=== PATIENT | female | born 1950 | race Caucasian/White ===

== ENCOUNTER 2021-12-12 18:48 | Inpatient (IN) | payer OTHER ==
--- OUTSIDE RECORDS SUMMARY | 2021-12-12 18:52 | XMS REPORT | Continuity of Care Document ---
:1950 Author Organization [facility] t Address [address] [place] [address] Support Name Relationship Address Phone Noreen Ying Spouse [address] [place] [address] MD JOSE LOREDO MD A Emergency Provider [address] [place] [address] SHEN NEIL MD Attending Provider [address] [phone] [place] [address] KARO QUINONES Primary Care Physician [address] [place] [address] NOREEN YING Next of Kin [address] [place] [address] KATHY GOMEZ MD Emergency Provider [address] [place] [address] DOMENICO KAMINSKI Child [address] [facility] [phone] [place] [address] CY LUNA MD Emergency Provider [address] [id number] ( [phone] [place] [address] MD MAGDALENA GARCIA MD Admitting Provider [address] [place] [address] PORSHA PERERA JR Attending Provider [address] [facility] [address] [place] [address] MD ANGELINE QUARLES Emergency Provider [address] [phone] [place] [address] MD PORSAH PERERA JR Admitting Provider [address] [place] [address] MD FIDENCIO GUTIERREZ Emergency Provider [address] [place] [address] MD ANA CHANDLER Emergency Provider [address] [place] [address] LILI VIDAL MD Emergency Provider [address] [phone] [place] [address] MD MARISELA RUSH Emergency Provider [address] [phone] [place] [address] MD FISH SIMMONS Emergency Provider [address] [place] [address] Care Team Providers Name Role Phone Emma Dawson Primary Care Physician ELIANA Attending Clinician Unavailable Tony Attending Clinician Unavailable ELIANA Admitting Clinician Unavailable Tony Admitting Clinician Unavailable Payers Payer Name Policy Type Policy Number Effective Date Expiration Date [facility] [id number] 2021 (MEDICARE 00:00:00 REPLACEMENT/ADVANT AGE - HMO) [place]: [id number] 2017 [employer] 00:00:00 [facility] [place]IC[facility] B[place]: [id number] 2017 [employer] 00:00:00 Problems Condition Condition Condition Status Onset Resolution Last Treating Co mments Source Name Details Category Date Date Treatment Clinician Date Tear of Tear of Problem Active [place] skin Skin 1-18 [facility] Recurrent Recurrent Problem Active [place] [place] 1-18 da [facility] Mixed Mixed Problem Active 2019-04 [place] hyperlipid Hyperlipid 1-16 da emia emia 00:00: [facility] Hyponatrem Hyponatrem Problem Active 2019-04 [facility] ia ia 1-16 da [facility] Home Home Problem Active [place] oxygen Oxygen 3-31 da therapy Therapy [facility]:00[facility] Alcohol Alcohol Problem Active [place] abuse Abuse 05-09 da 00:[facility] Fracture Fracture Problem Active [place] of left of Left 1 da rib Rib 00:00: [facility] Major Major Problem Active [place] depressive Depressive 5- da disorder Disorder 00:00: [facility] Generalize Generalize Problem Active [facility] d anxiety d Anxiety 08-15 da disorder Disorder 00:00: [facility] Nicotine Nicotine Problem Active [place] [facility] dependence Dependence 3 da 00:[facility] Anxiety Anxiety Problem Active [place] 3 da 00:[facility]: [facility] 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 227 da erosis erosis 00:00: [facility] 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-18 da thoracic Thoracic 00:00: [facility] aorta Aorta 00 al [facility] Hypertensi Hypertensi Problem Active [facility] ve ve da disorder Disorder [facility] Chronic Chronic Problem Active [place] obstructiv Obstructiv da e lung e Lung [facility] disease Disease [facility] Tobacco Tobacco Problem Active [place] dependence Dependence da syndrome Syndrome [facility] Depressive Depressive Problem Active [facility] disorder Disorder da [facility] Acute Acute Problem Active [place] exacerbati Exacerbati da on of on of [facility] chronic Chronic al obstructiv Obstructiv He alth e airways e Airways Outr eac disease Disease h Program Pulmonary Pulmonary Problem Active [facility] emphysema Emphysema da [facility] Acute Acute Problem Active [place] asthma Asthma da [facility] Chronic Chronic Problem Active [place] hypoxemic Hypoxemic da respirator Respirator [facility] failure y Failure al [facility] Diverticul Diverticul Problem Active [facility] ar disease ar Disease da [facility] Diverticul Diverticul Problem Active [facility] itis itis da [facility] Chronic Chronic Problem Active [place] ulcer of Ulcer of da skin Skin [facility] Backache Backache Problem Active [place] [facility] Fracture Fracture Problem Active [place] of rib of Rib [facility] Injury of Injury of Problem Active [facility] lower limb Lower Limb da [facility] Total knee Total Knee Problem Active [facility] replacemen Replacemen da t t [facility] Allergies, Adverse Reactions, Alerts This patient has no known allergies or adverse reactions. Social History Social Habit Start Date Stop Date Quantity Comments Source History of Smokes tobacco [facility] tobacco use daily Hospital Alcohol intake 2017-08-18 2017-08-18 Current drinker [facility] 00:00:00 00:00:00 of alcohol Hospital (finding) Tobacco use and 2017-08-18 2017-08-18 Smokeless tobacco [facility] exposure 00:00:00 00:00:00 non-user Hospital Sex Assigned At [birth year] [facility] 00:[facility]00 00:00:00 Hospital Smoking Status Start Date Stop Date Source Light Tobacco Smoker [facility] Smokes tobacco daily 2017-08-18 00:00:00 [facility] Medications Ordered Filled Start Stop Current Ordering Indication Dosage Frequency Signature Comments Components Source Medication Medication Date Date Medication? Clinician (SIG) Name Name albuterol Yes 2{puff} Q6H Inhale 2 M ethodi (PROAIR 5-[address] HFA,PROVENT 10:34: every 6 [facility] [place] 00 (six) l HFA,VENTOLI hours as N HFA) 90 needed for mcg/actuati wheezing. on inhaler amlodipine- Yes 1{capsu QD Take 1 M ethodi benazepril 5-09 le} capsule by st (LOTREL) 10:34: mouth [facility]osp[facility] 10-20 mg 00 daily. l per capsule metoprolol Yes 100mg Q.5D Take 100 Me th[facility] tartrate 5-[address] (LOPRESSOR) 10:34: mouth 2 [facility] 100 mg 00 (two) l tablet times a day. budesonide- Yes 2{puff} Q.5D Inhale 2 [facility] formoterol 5-[address] (SYMBICORT) 10:34: (two) Hospi ta 160-4.5 00 times a l mcg/actuati day. on inhaler albuterol Yes 2{puff} Q6H Inhale 2 M ethodi (PROAIR 5-[address] HFA,PROVENT 10:34: every 6 [facility] [place] (six) l HFA,VENTOLI hours as N HFA) 90 needed for mcg/actuati wheezing. on inhaler amlodipine- Yes 1{capsu QD Take 1 M ethodi benazepril 5-09 le} capsule by st (LOTREL) 10:34: mouth [facility]osp[facility] 10-20 mg 00 daily. l per capsule metoprolol 0 Yes 100mg Q.5D Take 100 Me [facility] tartrate 5-[address] (LOPRESSOR) 10:34: mouth 2 [facility] 100 mg 00 (two) l tablet times a day. budesonide- Yes 2{puff} Q.5D Inhale 2 [facility] formoterol 5-[address] (SYMBICORT) 10:34: (two) Hospi ta 160-4.5 00 times a l mcg/actuati day. on inhaler albuterol Yes 2{puff} Q6H Inhale 2 M ethodi (PROAIR 5-[address] HFA,PROVENT 10:34: every 6 [facility] [place] 00 (six) l HFA,VENTOLI hours as N HFA) 90 needed for mcg/actuati wheezing. on inhaler amlodipine- Yes 1{capsu QD Take 1 M ethodi benazepril 5-09 le} capsule by st (LOTREL) 10:34: mouth [facility]osp[facility] 10-20 mg 00 daily. l per capsule metoprolol 0 Yes 100mg Q.5D Take 100 [facility] tartrate 5-[address] (LOPRESSOR) 10:34: mouth 2 [facility] 100 mg 00 (two) l tablet times a day. amlodipine- Yes 1{capsu QD Take 1 M ethodi benazepril 5-09 le} capsule by st (LOTREL) 10:34: mouth [facility] 10-20 mg 00 daily. l per capsule metoprolol 2018-0 Yes 100mg Q.5D Take 100 Me [facility] tartrate 5-[address] (LOPRESSOR) 10:34: mouth 2 [facility] 100 mg 00 (two) l tablet times a day. budesonide- Yes 2{puff} Q.5D Inhale 2 [facility] formoterol 5-[address] (SYMBICORT) 10:34: (two) Hospi ta 160-4.5 00 times a l mcg/actuati day. on inhaler albuterol Yes 2{puff} Q6H Inhale 2 M ethodi (PROAIR 5-[address] HFA,PROVENT 10:34: every 6 [facility] [place] 00 (six) l HFA,VENTOLI hours as N HFA) 90 needed for mcg/actuati wheezing. on inhaler budesonide- Yes 2{puff} Q.5D Inhale 2 [facility] formoterol 5-[address] (SYMBICORT) 10:34: (two) Hospi ta 160-4.5 00 times a l mcg/actuati day. on inhaler albuterol Yes 2{puff} Q6H Inhale 2 M ethodi (PROAIR 5-[address] HFA,PROVENT 10:34: every 6 [facility] [place] 00 (six) l HFA,VENTOLI hours as N HFA) 90 needed for mcg/actuati wheezing. on inhaler amlodipine- Yes 1{capsu QD Take 1 M ethodi benazepril 5-09 le} capsule by st (LOTREL) 10:34: mouth [facility]osp[facility] 10-20 mg 00 daily. l per capsule metoprolol Yes 100mg Q.5D Take 100 Me thodi tartrate 5-[address] (LOPRESSOR) 10:34: mouth 2 [facility] 100 mg 00 (two) l tablet times a day. budesonide- Yes 2{puff} Q.5D Inhale 2 [facility] formoterol 5-[address] (SYMBICORT) 10:34: (two) Hospi ta 160-4.5 00 times a l mcg/actuati day. on inhaler SPIRIVA Yes 2{act} QD 2 Act Methodi RESPIMAT -[address] 2.5 00:00: Hospita mcg/actuati 00 l on mist SPIRIVA Yes 2{act} QD 2 Act [facility] RESPIMAT - daily. st 2.5 00:00: [facility]ospita mcg/actuati 00 l on mist SPIRIVA Yes 2{act} QD 2 Act [facility] RESPIMAT 08-[address] 2.5 00:00: [facility]ospita mcg/actuati 00 l on mist SPIRIVA Yes 2{act} QD 2 Act [facility] RESPIMAT 08-[address] 2.5 00:00: [facility]osp[facility] mcg/actuati 00 l on mist SPIRIVA Yes 2{act} QD 2 Act Methodi RESPIMAT 08-[address] 2.5 00:00: [facility]osp[facility] mcg/actuati 00 l on mist aspirin 81 aspirin 81 No aspirin 81 [facility] mg chewable mg chewable mg d a tablet tablet chewable [facility] tablet al [facility] benzonatate benzonatate No benzonatat [place] 100 mg 100 mg e 100 mg da capsule capsule capsule [facility] TAKE 1 TAKE 1 TAKE 1 al CAPSULE BY CAPSULE BY CAPSULE BY Health MOUTH THREE MOUTH THREE MOUTH Outreac TIMES DAILY TIMES DAILY THREE h NEEDED NEEDED TIMES Prog therese FOR COUGH FOR COUGH DAILY NEEDED FOR COUGH buspirone 5 buspirone 5 No buspirone [place] mg tablet mg tablet 5 mg da TAKE 1 TAKE 1 tablet [facility] TABLET BY TABLET BY TAKE 1 al MOUTH TWICE MOUTH TWICE TABLET BY Health DAILY DAILY MOUTH Outreac TWICE h DAILY Program duloxetine duloxetine No duloxetine [place] 30 mg 30 mg 30 mg da capsule,del capsule,del capsule,de [facility] ayed ayed layed al release release release Health TAKE 1 TAKE 1 TAKE 1 Outreac CAPSULE BY CAPSULE BY CAPSULE BY h MOUTH EVERY MOUTH EVERY MOUTH Program DAY DAY EVERY DAY escitalopra escitalopra No escitalopr [place] m 10 mg m 10 mg am 10 mg da tablet TAKE tablet TAKE tablet [facility] ONE TABLET ONE TABLET TAKE ONE al BY MOUTH BY MOUTH TABLET BY He alth EVERY DAY EVERY DAY MOUTH Outr eac FOR 30 DAYS FOR 30 DAYS EVERY DAY h FOR 30 Program DAYS folic acid folic acid No folic acid [place] 1 mg tablet 1 mg tablet 1 mg d a TAKE 1 TAKE 1 tablet [facility] TABLET BY TABLET BY TAKE 1 al MOUTH EVERY MOUTH EVERY TABLET BY Health DAY DAY MOUTH Outreac EVERY DAY h Program gabapentin gabapentin No gabapentin [place] 100 mg 100 mg 100 mg da capsule capsule capsule [facility] p TAKE 1 TAKE 1 TAKE 1 al CAPSULE BY CAPSULE BY CAPSULE BY Health MOUTH TWICE MOUTH TWICE MOUTH Outreac DAILY WITH DAILY WITH TWICE h MEALS MEALS DAILY WITH Program MEALS ipratropium ipratropium No ipratropiu [place] 0.5 0.5 m 0.5 da mg-albutero mg-albutero mg-albuter [facility] l 3 mg (2.5 l 3 mg (2.5 ol 3 mg al mg base)/3 mg base)/3 (2.5 mg Health mL mL base)/3 mL Outreac nebulizatio nebulizatio nebulizati h n soln USE n soln USE on soln Program ONE VIAL IN ONE VIAL IN USE ONE NEBULIZER NEBULIZER VIAL IN EVERY FOUR EVERY FOUR NEBULIZER HOURS HOURS EVERY FOUR NEEDED NEEDED HOURS NEEDED metoprolol metoprolol No metoprolol [place] tartrate 25 tartrate 25 tartrate da mg tablet mg tablet 25 mg [facility] copyist TAKE 1/2 TAKE 1/2 tablet al TABLET BY TABLET BY TAKE 1/2 H ealth MOUTH TWICE MOUTH TWICE TABLET BY Outreac A DAY A DAY MOUTH h TWICE A Program DAY montelukast montelukast No montelukas [place] 10 mg 10 mg t 10 mg da tablet TAKE tablet TAKE tablet [facility] 1 TABLET BY 1 TABLET BY TAKE 1 al MOUTH EVERY MOUTH EVERY TABLET BY Health DAY FOR DAY FOR MOUTH Outreac SEASONAL SEASONAL EVERY DAY h ALLERGIES ALLERGIES FOR Progr am SEASONAL ALLERGIES pantoprazol pantoprazol No pantoprazo [place] e 40 mg e 40 mg le 40 mg da tablet,kraig tablet,kraig tablet,del [facility] yed release yed release ayed a l TAKE 1 TAKE 1 release Health TABLET BY TABLET BY TAKE 1 Out reac MOUTH EVERY MOUTH EVERY TABLET BY h DAY DAY MOUTH Program EVERY DAY prednisone prednisone No prednisone [place] 10 mg 10 mg 10 mg da tablet TAKE tablet TAKE tablet [facility] 1 TABLET BY 1 TABLET BY TAKE 1 al MOUTH EVERY MOUTH EVERY TABLET BY Health DAY FOR 30 DAY FOR 30 MOUTH Ou treac DAYS DAYS EVERY DAY h FOR 30 Program DAYS ProAir HFA ProAir HFA No ProAir HFA [place] 90 90 90 da mcg/actuati mcg/actuati mcg/actuat [facility] on aerosol on aerosol ion al inhaler inhaler aerosol Health INHALE 2 INHALE 2 inhaler Outr eac PUFFS EVERY PUFFS EVERY INHALE 2 h FOUR HOURS FOUR HOURS PUFFS Pr ogram EVERY FOUR HOURS Restasis Restasis No Restasis [facility] 0.05 % eye 0.05 % eye 0.05 % eye da drops in a drops in a drops in a [facility] dropperette dropperette dropperett al INSTILL 1 INSTILL 1 e INSTILL Health DROP INTO DROP INTO 1 DROP Out reac EACH EYE EACH EYE INTO EACH h TWICE DAILY TWICE DAILY EYE TWICE Program DAILY Spiriva Spiriva No Spiriva [place] Respimat Respimat Respimat da 2.5 2.5 2.5 [facility] mcg/actuati mcg/actuati mcg/actuat al on solution on solution ion H ealth for for solution Outreac inhalation inhalation for h INHALE 2 INHALE 2 inhalation P rogram PUFFS EVERY PUFFS EVERY INHALE 2 DAY DAY PUFFS EVERY DAY Symbicort Symbicort No Symbicort [place] 160 mcg-4.5 160 mcg-4.5 160 d a mcg/actuati mcg/actuati mcg-4.5 [facility] on HFA on HFA mcg/actuat al aerosol aerosol ion HFA Health inhaler inhaler aerosol Outrea c Inhale 2 Inhale 2 inhaler h inhalations inhalations Inhale 2 Program twice a day twice a day inhalation by by s twice a inhalation inhalation day by route as route as inhalation directed. directed. route as directed. Immunizations Ordered Immunization Filled Immunization Date Status Commen Source Name Name Influenza vaccine, Influenza vaccine, 2021-01-14 Completed [place] quadrivalent, quadrivalent, 10:34:41 [facility] adjuvanted adjuvanted [facility] COVID-19, mRNA, COVID-19, mRNA, 2020-11-22 Completed [place] mylene LNP-S, PF, 100 LNP-S, PF, 100 00:00:00 [facility] pal mcg/0.5 mL dose mcg/0.5 mL dose [facility] (Moderna) (Moderna) Program COVID-19, mRNA, COVID-19, mRNA, 2020-10-25 Completed [place] mylene LNP-S, PF, 100 LNP-S, PF, 100 00:00:00 [facility] pal mcg/0.5 mL dose mcg/0.5 mL dose [facility] (Moderna) (Moderna) Program Tdap Tdap 2020-02-26 Completed [place] 17:27:50 [facility] pneumococcal pneumococcal 2020-02-08 Completed [place] polysaccharide PPV23 polysaccharide PPV23 16:15:59 [facility] influenza, trivalent, influenza, 2020-01-09 Completed [place] adjuvanted trivalent, 16:02:46 [facility] adjuvanted [facility] influenza, trivalent, influenza, 2018-01-25 Completed [place] adjuvanted trivalent, 14:38:55 [facility] adjuvanted [facility] influenza, influenza, 2017-01-11 Completed [place] injectable, injectable, 00:00:00 [facility] quadrivalent quadrivalent [facility] Out reach Program pneumococcal pneumococcal 2014-07-31 Completed [place] conjugate PCV 13 conjugate PCV 13 00:00:00 [facility] Vital Signs Vital Name Observation Time Observation Value Comments Source BP Diastolic 2021-06-11 00:00:00 76 [facility]Hg[facility] Height 2021-06-11 00:00:00 68 [in_i] [facility] BMI (Body Mass 2021-06-11 00:00:00 20.2 kg/m2 [place]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 BP Systolic 2021-06-11 00:00:00 168 mm[Hg] [facility] Body Weight 2021-06-11 00:00:00 2128 [oz_av] [facility] BP Diastolic 2021-01-23 00:00:00 76 mm[Hg] [facility] Height 2021-01-23 00:00:00 68 [in_i] [facility] BMI (Body Mass 2021-01-23 00:00:00 20.4 kg/m2 [place]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 BP Systolic 2021-01-23 00:00:00 166 mm[Hg] [place] [facility] Body Weight 2021-01-23 00:00:00 2144 [oz_av] [place] [facility] BP Diastolic 2021-01-14 00:00:00 71 mm[Hg] [place] [facility] Height 2021-01-14 00:00:00 68 [in_i] [place] [facility] BMI (Body Mass 2021-01-14 00:00:00 20.4 kg/m2 [place]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 BP Systolic 2021-01-14 00:00:00 131 mm[Hg] [place] [facility] Body Weight 2021-01-14 00:00:00 2144 [oz_av] [place] [facility] BP Diastolic 2020-08-27 00:00:00 76 mm[Hg] [place] [facility] Height 2020-08-27 00:00:00 68 [in_i] [place] [facility] BMI (Body Mass 2020-08-27 00:00:00 17.6 kg/m2 [place]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 BP Systolic 2020-08-27 00:00:00 131 mm[Hg] [place] [facility] Body Weight 2020-08-27 00:00:00 1856 [oz_av] [place] [facility] BP Diastolic 2020-07-30 00:00:00 56 mm[Hg] [place] [facility] Height 2020-07-30 00:00:00 68 [in_i] [place] [facility] BMI (Body Mass 2020-07-30 00:00:00 18.4 kg/m2 [place]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 BP Systolic 2020-07-30 00:00:00 115 mm[Hg] [place] [facility] Body Weight 2020-07-30 00:00:00 1936 [oz_av] [place] [facility] BP Diastolic 2020-07-07 00:00:00 67 mm[Hg] [place] [facility] Height 2020-07-07 00:00:00 68 [in_i] [place] [facility] BMI (Body Mass 2020-07-07 00:00:00 18.5 kg/m2 [place]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 BP Systolic 2020-07-07 00:00:00 127 mm[Hg] [place] [facility] Body Weight 2020-07-07 00:00:00 1945.6 [oz_av] [place] [employer] [facility] BP Diastolic 2020-04-29 00:00:00 70 mm[Hg] [place] [facility] Height 2020-04-29 00:00:00 68 [in_i] [place] [facility] BMI (Body Mass 2020-04-29 00:00:00 19.2 kg/m2 [place]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 BP Systolic 2020-04-29 00:00:00 124 mm[Hg] [place] [facility] Body Weight 2020-04-29 00:00:00 2016 [oz_av] [place] [facility] BP Diastolic 2020-02-26 00:00:00 78 mm[Hg] [place] [facility] Height 2020-02-26 00:00:00 68 [in_i] [place] [facility] BP Systolic 2020-02-26 00:00:00 136 mm[Hg] [place] [facility] BP Diastolic 2020-02-08 00:00:00 77 mm[Hg] [place] [facility] Height 2020-02-08 00:00:00 68 [in_i] [place] [facility] BMI (Body Mass 2020-02-08 00:00:00 20.1 kg/m2 [place]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 BP Systolic 2020-02-08 00:00:00 146 mm[Hg] [place] [facility] Body Weight 2020-02-08 00:00:00 2112 [oz_av] [place] [facility] BP Diastolic 2020-01-09 00:00:00 74 mm[Hg] [place] [facility] Height 2020-01-09 00:00:00 68 [in_i] [place] [facility] BMI (Body Mass 2020-01-09 00:00:00 19.9 kg/m2 [place]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 BP Systolic 2020-01-09 00:00:00 124 mm[Hg] [place] [facility] Body Weight 2020-01-09 00:00:00 2091.2 [oz_av] [place] [facility] [facility] BP Diastolic 2019-09-05 00:00:00 81 mm[Hg] [place] [facility] Height 2019-09-05 00:00:00 68 [in_i] [place] [facility] BMI (Body Mass 2019-09-05 00:00:00 19.4 kg/m2 [place]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 BP Systolic 2019-09-05 00:00:00 149 mm[Hg] [place] [facility] Body Weight 2019-09-05 00:00:00 2038.4 [oz_av] [place] [employer] [facility] BP Diastolic 2019-07-11 00:00:00 78 mm[Hg] [place] [facility] Height 2019-07-11 00:00:00 68 [in_i] [place] [facility] BP Systolic 2019-07-11 00:00:00 138 mm[Hg] [place] [facility] BP Diastolic 2019-06-06 00:00:00 58 mm[Hg] [place] [facility] Height 2019-06-06 00:00:00 68 [in_i] [place] [facility] BMI (Body Mass 2019-06-06 00:00:00 18.9 kg/m2 [place]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 BP Systolic 2019-06-06 00:00:00 100 mm[Hg] [place] [facility] Body Weight 2019-06-06 00:00:00 124.1 [lb_av] [place] [facility] BP Diastolic 2019-05-09 00:00:00 60 mm[Hg] [place] [facility] Height 2019-05-09 00:00:00 68 [in_i] [place] [facility] BMI (Body Mass 2019-05-09 00:00:00 19.3 kg/m2 [place]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 BP Systolic 2019-05-09 00:00:00 104 mm[Hg] [place] [facility] Body Weight 2019-05-09 00:00:00 127 [lb_av] [place] [facility] BP Diastolic 2019-03-06 00:00:00 66 mm[Hg] [place] [facility] Height 2019-03-06 00:00:00 68 [in_i] [place] [facility] BMI (Body Mass 2019-03-06 00:00:00 19.6 kg/m2 [place]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 BP Systolic 2019-03-06 00:00:00 120 mm[Hg] [place] [facility] Body Weight 2019-03-06 00:00:00 129 [lb_av] [place] [facility] BP Diastolic 2019-02-01 00:00:00 70 mm[Hg] [place] [facility] Height 2019-02-01 00:00:00 68 [in_i] [place] [facility] BMI (Body Mass 2019-02-01 00:00:00 19.5 kg/m2 [place]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 BP Systolic 2019-02-01 00:00:00 120 mm[Hg] [place] [facility] Body Weight 2019-02-01 00:00:00 128 [lb_av] [place] [facility] BP Diastolic 2019-01-08 00:00:00 78 mm[Hg] [place] [facility] Outreach Program Height 2019-01-08 00:00:00 68 [in_i] [place] [facility] BMI (Body Mass 2019-01-08 00:00:00 19.3 kg/m2 [place]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 Program BP Systolic 2019-01-08 00:00:00 144 mm[Hg] [place] [facility] Body Weight 2019-01-08 00:00:00 126.9 [lb_av] [facility] da [facility] BP Diastolic 2019-01-02 00:00:00 68 mm[Hg] [place] [facility] Height 2019-01-02 00:00:00 68 [in_i] [place] [facility] BMI (Body Mass 2019-01-02 00:00:00 19.5 kg/m2 [place]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 [facility] BP Systolic 2019-01-02 00:00:00 120 mm[Hg] [place] [facility] Body Weight 2019-01-02 00:00:00 128 [lb_av] [place] [facility] Procedures Procedure Date / Time Performing Clinician Source Performed CHEST X-RAY 2020-08-27 00:00:00 [facility] MAMMO, screening, 2020-02-08 00:00:00 Brit Confucianist digital, bilateral Health Outrea ch Program XR, knee, 3 view 2020-02-08 00:00:00 Brit [facility] ELECTROCARDIOGRAM, 2020-02-08 00:00:00 Brit Confucianist COMPLETE Health Outreach Program DXA BONE DENSITY, AXIAL 2020-02-08 00:00:00 Bartolo chakraborty [facility] Colonoscopy 2018-08-19 00:00:00 [facility] Insertion of Arterial 2018-05-12 00:00:00 Kyle armas [facility]ist Stent [facility] Knee Surgery 2011-04-12 00:00:00 [facility] Total Hysterectomy 1994-04-12 00:00:00 Brit [facility] Lumpectomy of Breast 1988-04-12 00:00:00 Alejandro rosa [facility] Plan of Care Planned Activity Planned Date Details Comments Source Future Scheduled 2021-12-09 HEPATITIS B VACCINES Met [facility] Test 21:29:44 (1 of 3 - 3-dose series) [code = HEPATITIS B VACCINES (1 of 3 - 3-dose series)] Future Scheduled 2021-12-09 COVID-19 VACCINE (#1) [facility] Test 21:29:44 [code = COVID-19 VACCINE (#1)] Future Scheduled 2021-12-09 BREAST CANCER [facility] Test 21:29:44 SCREENING [code = BREAST CANCER SCREENING] Future Scheduled 2021-12-09 COLONOSCOPY SCREENING [facility] Test 21:29:44 [code = COLONOSCOPY SCREENING] Future Scheduled 2021-12-09 SHINGLES VACCINES (1 Met [facility] Test 21:29:44 of 2) [code = SHINGLES VACCINES (1 of 2)] Future Scheduled 2021-12-09 65+ [facility] 21:29:44 VACCINE (1 - PCV) [code = 65+ PNEUMOCOCCAL VACCINE (1 - PCV)] Future Scheduled 2021-12-09 INFLUENZA VACCINE Method [facility] Test 21:29:44 [code = INFLUENZA VACCINE] Future Scheduled 2021-12-09 HEPATITIS B VACCINES Met [facility] Test 21:29:44 (1 of 3 - 3-dose series) [code = HEPATITIS B VACCINES (1 of 3 - 3-dose series)] Future Scheduled 2021-12-09 COVID-19 VACCINE (#1) [facility] Test 21:29:44 [code = COVID-19 VACCINE (#1)] Future Scheduled 2021-12-09 [facility] Test 21:29:44 SCREENING [code = BREAST CANCER SCREENING] Future Scheduled 2021-12-09 COLONOSCOPY SCREENING [facility] Test 21:29:44 [code = COLONOSCOPY SCREENING] Future Scheduled 2021-12-09 SHINGLES VACCINES (1 Met [facility] Test 21:29:44 of 2) [code = SHINGLES VACCINES (1 of 2)] Future Scheduled 2021-12-09 65+ [facility] 21:29:44 VACCINE (1 - PCV) [code = 65+ PNEUMOCOCCAL VACCINE (1 - PCV)] Future Scheduled 2021-12-09 INFLUENZA VACCINE [facility] Test 21:29:44 [code = INFLUENZA VACCINE] Future Scheduled 2021-12-09 HEPATITIS B VACCINES Met [facility] Test 21:29:44 (1 of 3 - 3-dose series) [code = HEPATITIS B VACCINES (1 of 3 - 3-dose series)] Future Scheduled 2021-12-09 COVID-19 VACCINE (#1) [facility] Test 21:29:44 [code = COVID-19 VACCINE (#1)] Future Scheduled 2021-12-09 BREAST CANCER [facility] Test 21:29:44 SCREENING [code = BREAST CANCER SCREENING] Future Scheduled 2021-12-09 COLONOSCOPY SCREENING [facility] Test 21:29:44 [code = COLONOSCOPY SCREENING] Future Scheduled 2021-12-09 SHINGLES VACCINES (1 Met [facility] Test 21:29:44 of 2) [code = SHINGLES VACCINES (1 of 2)] Future Scheduled 2021-12-09 65+ [facility] Test 21:29:44 VACCINE (1 - PCV) [code = 65+ PNEUMOCOCCAL VACCINE (1 - PCV)] Future Scheduled 2021-12-09 INFLUENZA VACCINE [facility] Test 21:29:44 [code = INFLUENZA VACCINE] Future Scheduled 2021-12-06 HEPATITIS B VACCINES Met [facility] Test 23:44:19 (1 of 3 - 3-dose series) [code = HEPATITIS B VACCINES (1 of 3 - 3-dose series)] Future Scheduled 2021-12-06 COVID-19 VACCINE (#1) [facility] Test 23:44:19 [code = COVID-19 VACCINE (#1)] Future Scheduled 2021-12-06 BREAST CANCER [facility] Test 23:44:19 SCREENING [code = BREAST CANCER SCREENING] Future Scheduled 2021-12-06 COLONOSCOPY SCREENING [facility] Test 23:44:19 [code = COLONOSCOPY SCREENING] Future Scheduled 2021-12-06 SHINGLES VACCINES (1 Met [facility] Test 23:44:19 of 2) [code = SHINGLES VACCINES (1 of 2)] Future Scheduled 2021-12-06 65+ [facility] Test 23:44:19 VACCINE (1 - PCV) [code = 65+ PNEUMOCOCCAL VACCINE (1 - PCV)] Future Scheduled 2021-12-06 INFLUENZA VACCINE Method [facility] Test 23:44:19 [code = INFLUENZA VACCINE] Future Scheduled 2021-12-06 HEPATITIS B VACCINES Met [facility] Test 23:44:19 (1 of 3 - 3-dose series) [code = HEPATITIS B VACCINES (1 of 3 - 3-dose series)] Future Scheduled 2021-12-06 COVID-19 VACCINE (#1) [facility] Test 23:44:19 [code = COVID-19 VACCINE (#1)] Future Scheduled 2021-12-06 BREAST CANCER [facility] Test 23:44:19 SCREENING [code = BREAST CANCER SCREENING] Future Scheduled 2021-12-06 COLONOSCOPY SCREENING [facility] Test 23:44:19 [code = COLONOSCOPY SCREENING] Future Scheduled 2021-12-06 SHINGLES VACCINES (1 Met [facility] Test 23:44:19 of 2) [code = SHINGLES VACCINES (1 of 2)] Future Scheduled 2021-12-06 65+ [facility]AL [facility] Test 23:44:19 VACCINE (1 - PCV) [code = 65+ PNEUMOCOCCAL VACCINE (1 - PCV)] Future Scheduled 2021-12-06 INFLUENZA VACCINE Method [facility] Test 23:44:19 [code = INFLUENZA VACCINE] Diagnostic Test 2021-06-12 CBC w/ auto diff [place] Pending 00:00:00 [code = CBC w/ auto [facility] diff] [facility]reach [facility] Diagnostic Test 2021-06-12 anemia panel [code = [place] mylene Pending 00:00:00 anemia panel] [facility] Pro[facility] m Diagnostic Test 2021-06-11 noninvasive [place] Pending 00:00:00 colorectal cancer DNA [facility] + occult blood Outreach Prog therese screening, QL, stool [code = noninvasive colorectal cancer DNA + occult blood screening, QL, stool] Encounters Start End Encounter Admission Attending Care Care Encounter Source Date/Time Date/Time Type Type Clinicians Facility Department ID 2021-12-10 2021-12-10 Outpatient [facility] [place] 00:00:00 00:00:00 _ANN 0831 [facility] 2021-09-17 2021-09-17 Outpatient [facility] 91 [place] 02:18:00 02:18:00 _ANN 0726 [facility] 2021-09-17 2021-09-17 Outpatient [facility] 911 [place] 00:00:00 00:00:00 _ANN 0608 [facility] 2021-08-10 2021-08-10 Outpatient [facility] 911 [place] 04:35:00 04:35:00 _ANN 0527 [facility] 2021-08-05 2021-08-05 Outpatient [facility] 911 [place] 01:59:00 01:59:00 _ANN 0426 [facility] 2021-08-02 2021-08-02 Outpatient [facility] 911 [place] 10:47:00 10:47:00 _ANN 0423 [facility] 2021-08-01 2021-08-01 Outpatient [facility] 911 [place] 09:45:00 09:45:00 _ANN 0422 [facility] 2021-07-02 2021-07-02 Outpatient [facility] 911 [place] 03:02:00 03:02:00 _ANN 0323 [facility] 2021-07-01 2021-07-01 Outpatient [facility] 911 [place] 12:48:00 12:48:00 _ANN 0322 [facility] 2021-06-11 2021-06-11 Outpatient [facility] 911 [place] 04:57:00 04:57:00 _ANN 0302 [facility] 2021-06-11 2021-06-11 Olga Murphy [facility] [place] - 2 [place] 00:00:00 00:00:00 Brit Quinones da TIMBER WATCHMAN: 1700 [facility] Wes Dominguez, [place], [place] 3 [place] [phone] h , Ph. Program 2021-06-09 2021-06-09 Outpatient [facility] 911 [place] 04:51:00 04:51:00 _ANN 0228 [facility] 2021-06-03 2021-06-03 Outpatient [facility] 911 [place] 10:09:00 10:09:00 _ANN 0222 [facility] 2021-06-03 2021-06-03 Outpatient [facility] 911 [place] 10:09:00 10:09:00 _ANN 0224 [facility] 2021-06-02 2021-06-02 Outpatient [facility] 911 [place] 09:29:00 09:29:00 _ANN 0221 [facility] 2021-05-30 2021-05-30 Outpatient [facility] 91 [place] 02:41:00 02:41:00 _ANN 0218 [facility] 2021-01-23 2021-01-23 Outpatient [facility] 91 [place] 04:27:00 04:27:00 _ANN 1014 [facility] 2021-01-23 2021-01-23 Rosa [facility] [place] - [id number] [place] 00:00:00 00:00:00 Brit Quinones da TIMBER WATCHMAN: 1700 [facility] Wes Dominguez, [place], [place] 3 [place] [address] h , Ph. Program 2021-01-14 2021-01-14 Outpatient [facility] 91 [place] 11:05:00 11:05:00 _ANN 1005 [facility] 2021-01-14 2021-01-14 Olga [place] - [id number] 5 [place] 00:00:00 00:00:00 Brit Quinones da TIMBER WATCHMAN: 17[address] [facility] [address], [facility] [place], [place] 3 [place] [phone] h , Ph. Program 2021-01-13 2021-01-13 Outpatient POLOEK_[facility] [place] 09:32:00 09:32:00 _ANN 1004 [facility] 2020-09-12 2020-09-12 Outpatient [facility]OEK_[facility] 91 [place] 05:29:00 05:29:00 _ANN 0603 [facility] 2020-08-27 2020-08-27 Outpatient [facility] [place] 11:32:00 11:32:00 _ANN 0518 [facility] 2020-08-27 2020-08-27 Olga Murphy [place] - [id number] [place] 00:00:00 00:00:00 Brit Quinones da TIMBER WATCHMAN: 1700 [facility] [place] [facility] [place] [place] [facility] [place] [address] h , Ph. Program 2020-07-30 2020-07-30 Outpatient [facility] [place] 03:48:00 03:48:00 _ANN 0420 [facility] 2020-07-30 2020-07-30 Rosa Katherine [place] - [id number] [place] 00:00:00 00:00:00 Brit Quinones da TIMBER WATCHMAN: 1700 [facility] [place] [facility] [place] [place] [facility] [place] [address] h , Ph. Program 2020-07-072020-062020-07-07 Outpatient SHIMEK_[facility] 911 [place] 11:27:00 11:27:00 _ANN 0328 [facility] 2020-07-07 2020-07-07 Olga BEY [place] - [id number] [place] 00:00:00 00:00:00 Brit Quinones da TIMBER WATCHMAN: [address] [facility] [place] [address], [facility] [address] h , Ph. Program 2020-05-21 2020-05-21 Outpatient [facility] 911 [place] 12:23:00 12:23:00 _ANN 0209 [facility] 2020-04-29 2020-04-29 Outpatient [facility] 911 [place] 03:47:00 03:47:00 _ANN 0118 [facility] 2020-04-29 2020-04-29 Olga BEY [place] - [id number] [place] 00:00:00 00:00:00 Brit Quinones da TIMBER WATCHMAN: 17[address] [facility] [address], [place], [place] 3 [place] [address] h , Ph. Program 2020-02-26 2020-02-26 Outpatient [facility] 91 [place] 05:04:00 05:04:00 _ANN 1116 [facility] 2020-02-26 2020-02-26 Olga BEY [place] - [id number] [place] 00:00:00 00:00:00 Brit Quinones da TIMBER WATCHMAN: 1700 [facility] [address], [place], [place] [address] h , Ph. Program 2020-02-08 2020-02-08 Outpatient [facility] 91 [place] 03:58:00 03:58:00 _ANN 1029 [facility] 2020-02-08 2020-02-08 Olga Murphy [facility] [place] - [id number] 9 [place] 00:00:00 00:00:00 Brit Quinones da TIMBER WATCHMAN: 1700 [facility] [address], [facility] [place][note 2] [phone] h , Ph. Program 2020-01-10 2020-01-10 Outpatient [facility] 91 [place] 03:26:00 03:26:00 _ANN 0930 [facility] 2020-01-09 2020-01-09 Outpatient [facility] 91 [place] 04:16:00 04:16:00 _ANN 0929 [facility] 2020-01-09 2020-01-09 Olga Murphy [place] - [id number] 9 [place] 00:00:00 00:00:00 Brit Quinones da TIMBER WATCHMAN: 1700 [facility] [address], [facility] [place][note 2] [address] h , Ph. Program 2020-01-08 2020-01-08 Outpatient [facility] 91 [place] 12:40:00 12:40:00 _ANN 0928 [facility] 2020-01-07 2020-01-07 Outpatient [facility] 91 [place] 01:13:00 01:13:00 _ANN 0927 [facility] 2019-12-19 2019-12-19 Outpatient Tony MMG MMG [id number] [place] 11:09:00 11:09:00 0908 [facility] 2019-11-17 2019-11-17 Outpatient [facility] 911 [place] 12:59:00 12:59:00 _ANN 0807 [facility] 2019-11-17 2019-11-17 Outpatient SHIMEK_[facility] 911 [place] 12:59:00 12:59:00 _ANN 0925 [facility] 2019-10-23 2019-10-23 Outpatient [facility] 911 [place] 04:35:00 04:35:00 _ANN 0713 [facility] 2019-10-13 2019-10-13 Outpatient ROSA_OLGA PERRYHOP [facility] 911 [place] 12:38:00 12:38:00 _ANN 0703 [facility] 2019-09-08 2019-09-08 Outpatient [facility] 911 [place] 12:52:00 12:52:00 _ANN 0529 [facility] 2019-09-06 2019-09-06 Outpatient [facility] 911 [place] 05:29:00 05:29:00 _ANN 0527 [facility] 2019-09-05 2019-09-05 Outpatient [facility] 911 [place] 09:45:00 09:45:00 _ANN 0526 [facility] 2019-09-05 2019-09-05 [facility] [place] [place] - [id number] [place] 00:00:00 00:00:00 Brit Luis da TIMBER WATCHMAN: 1700 [facility] [address] h , Ph. Program 2019-08-04 2019-08-04 Outpatient [facility] 911 [place] 12:48:00 12:48:00 _ANN 0424 [facility] 2019-07-17 2019-07-17 Outpatient [facility]OP [facility] 911 [place] 02:08:00 02:08:00 _ANN 0406 [facility] 2019-07-11 2019-07-11 Outpatient SHIMEK_[facility] 911 [place] 04:54:00 04:54:00 _ANN 0331 [facility] 2019-07-11 2019-07-11 Olga BEY [place] - [id number] [place] 00:00:00 00:00:00 Brit Quinones da TIMBER WATCHMAN: 1700 [facility] [address], [place], [place] [address] h , Ph. Program 2019-06-23 2019-06-23 Outpatient [facility] 911 [place] 11:30:00 11:30:00 _ANN 0320 [facility] 2019-06-23 2019-06-23 Outpatient [facility] 91 [place] 11:30:00 11:30:00 _ANN 0327 [facility] 2019-06-06 2019-06-06 Outpatient ROSA_OLGA [place] [address] [place] 01:07:00 01:07:00 _ANN 0225 [facility] 2019-06-06 2019-06-06 Olga BEY [place] - [id number] [place] 00:00:00 00:00:00 Brit Quinones da TIMBER WATCHMAN: 17[address] [facility] [address], [place], [place] [address] h , Ph. Program 2019-05-29 2019-05-29 Outpatient [facility] 911 [place] 02:29:00 02:29:00 _ANN 0217 [facility] 2019-05-09 2019-05-09 Outpatient [facility] 91 [place] 01:22:00 01:22:00 _ANN 0128 [facility] 2019-05-09 2019-05-09 Olga BEY [place] - [id number] [place] 00:00:00 00:00:00 Brit Quinones da TIMBER WATCHMAN: 1700 Confucianist [facility] op [facility], [facility] [address] h , Ph. Program 2019-04-02 2019-04-02 Outpatient ROSA_OLGA BEY 911 [place] 11:26:00 11:26:00 _ELDA Chrystal4 da [facility] Program 2019-03-06 2019-03-06 Olga [place] - [id number] [place] 00:00:00 00:00:00 Brit Quinones da TIMBER WATCHMAN: 1700 [facility]ist [facility], [address] [address] Progr am , Ph. 2019-02-01 2019-02-01 Olga [place] - [id number] [place] 00:00:00 00:00:00 Brit Quinones TIMBER WATCHMAN: 1700 Conf[facility]ist [facility], [address] [address] Progr am , Ph. 2019-01-08 2019-01-08 Areli [place] - [id number] M atagor 00:00:00 00:00:00 Shailesh Marieluis, Confucianist Episc op TIMBER WATCHMAN: [address] Program [phone] , Ph. 2019-01-02 2019-01-02 Olga [facility] [place] - [id number] [place] 00:00:00 00:00:00 Brit Quinones da TIMBER WATCHMAN: 1700 Conf[facility]ist [facility], [address] [address] Progr am , Ph. Results Test Description Test Time Test Comments Results Result Comments Source Free T4 and TSH panel - Serum or Plasma 2021-01-15 00:00:00 Test Item Value Reference Range Interpretation Comme nts Thyrotropin [Units/volume] in Serum or Plasma by 0.940 uIU/mL 0.450 -4.500 Detection limit <= 0.005 mIU/L (test code = 71205-9) Thyroxine (T4) free [Mass/volume] in Serum or Plasma 1.02 NG/dL 0 .82-1.77 (test code = 3024-7) [facility] W Auto Differential panel - Blood 2021-01-15 00:00:00 Test Item Value Reference Range Interpretation Comments Leukocytes [#/volume] in Blood 13.2 x10e3/uL 3.4-10.8 H by Automated count (test code = 6690-2) Erythrocytes [#/volume] in 3.66 x10e6/uL 3.77-5.28 L Blood by Automated count (test code = 789-8) Hemoglobin [Mass/volume] in 11.6 g/dL 11.1-15.9 Blood (test code = 718-7) Hematocrit [Volume Fraction] of 35.0 % 34.0-46.6 Blood by Automated count (test code = 4544-3) MCV [Entitic volume] by 96 fL 79-97 Automated count (test code = 787-2) MCH [Entitic mass] by Automated 31.7 pg 26.6-33.0 count (test code = 785-6) MCHC [Mass/volume] by Automated 33.1 g/dL 31.5-35.7 count (test code = 786-4) Erythrocyte distribution width 13.6 % 11.7-15.4 [Ratio] by Automated count (test code = 788-0) Platelets [#/volume] in Blood 257 x10e3/uL 150-450 by Automated count (test code = 777-3) Neutrophils/100 leukocytes in 70 % not estab. Blood by Automated count (test code = 770-8) Lymphocytes/100 leukocytes in 21 % not estab. Blood by Automated count (test code = 736-9) Monocytes/100 leukocytes in 7 % not estab. Blood by Automated count (test code = 5905-5) Eosinophils/100 leukocytes in 1 % not estab. Blood by Automated count (test code = 713-8) Basophils/100 leukocytes in 0 % not estab. Blood by Automated count (test code = 706-2) immature cells (test code = customer experience intern immature cells) Neutrophils [#/volume] in Blood 9.2 x10e3/uL 1.4-7.0 H by Automated count (test code = 751-8) Lymphocytes [#/volume] in Blood 2.8 x10e3/uL 0.7-3.1 by Automated count (test code = 731-0) Monocytes [#/volume] in Blood 0.9 x10e3/uL 0.1-0.9 by Automated count (test code = 742-7) Eosinophils [#/volume] in Blood 0.2 x10e3/uL 0.0-0.4 by Automated count (test code = 711-2) Basophils [#/volume] in Blood 0.1 x10e3/uL 0.0-0.2 by Automated count (test code = 704-7) Immature granulocytes/100 1 % not estab. leukocytes in Blood by Automated count (test code = 02726-7) Immature granulocytes 0.1 x10e3/uL 0.0-0.1 [#/volume] in Blood by Automated count (test code = 98238-8) Nucleated erythrocytes/100 customer experience intern leukocytes [Ratio] in Blood by Automated count (test code = 66780-2) Morphology [Interpretation] in customer experience intern Blood Narrative (test code = 95714-7) [facility] Outreach ProgramComprehensive metabolic 2000 panel - Serum or Zditoh8114-98-17 00:00:00 Test Item Value Reference Range Interpretation Comments Glucose [Mass/volume] in 97 mg/dL 65-99 Serum or Plasma (test code = 2345-7) Urea nitrogen [Mass/volume] 11 mg/dL 8-27 in Serum or Plasma (test code = 3094-0) Creatinine [Mass/volume] in 0.63 mg/dL 0.57-1.00 Serum or Plasma (test code = 2160-0) Glomerular filtration 92 mL/min/1.73 >59 rate/1.73 sq M.predicted among non-blacks [Volume Rate/Area] in Serum, Plasma or Blood by Creatinine-based formula (CKD-EPI) (test code = 94172-1) Glomerular filtration 107 mL/min/1.73 >59 rate/1.73 sq M.predicted among blacks [Volume Rate/Area] in Serum, Plasma or Blood by Creatinine-based formula (CKD-EPI) (test code = 81930-3) Urea nitrogen/Creatinine 17 12-28 [Mass Ratio] in Serum or Plasma (test code = 3097-3) Sodium [Moles/volume] in 137 mmol/L 134-144 Serum or Plasma (test code = 2951-2) Potassium [Moles/volume] in 3.9 mmol/L 3.5-5.2 Serum or Plasma (test code = 2823-3) Chloride [Moles/volume] in 94 mmol/L 96-106 L Serum or Plasma (test code = 2075-0) Carbon dioxide, total 25 mmol/L 20-29 [Moles/volume] in Serum or Plasma (test code = 2027-9) Calcium [Mass/volume] in 9.1 mg/dL 8.7-10.3 Serum or Plasma (test code = 86378-1) Protein [Mass/volume] in 6.5 g/dL 6.0-8.5 Serum or Plasma (test code = 2885-2) Albumin [Mass/volume] in 4.5 g/dL 3.8-4.8 Serum or Plasma (test code = 1751-7) Globulin [Mass/volume] in 2.0 g/dL 1.5-4.5 Serum by calculation (test code = 49830-4) Albumin/Globulin [Mass Ratio] 2.3 1.2-2.2 H in Serum or Plasma (test code = 1759-0) Bilirubin.total [Mass/volume] 0.6 mg/dL 0.0-1.2 in Serum or Plasma (test code = 1974-2) Alkaline phosphatase 84 IU/L 44-121 [Enzymatic activity/volume] in Serum or Plasma (test code = 6768-6) Aspartate aminotransferase 19 IU/L 0-40 [Enzymatic activity/volume] in Serum or Plasma (test code = 1920-8) Alanine aminotransferase 18 IU/L 0-32 [Enzymatic activity/volume] in Serum or Plasma (test code = 1742-6) [facility] or Plasma 2021-01-15 00:00:00 Test Item Value Reference Range Interpretation Comments Cholesterol [Mass/volume] in Serum 214 mg/dL 100-199 H or Plasma (test code = 2093-3) Triglyceride [Mass/volume] in Serum 160 mg/dL 0-149 H or Plasma (test code = 2571-8) Cholesterol in HDL [Mass/volume] in 105 mg/dL >39 Serum or Plasma (test code = 2085-9) Cholesterol in VLDL [Mass/volume] 26 mg/dL 5-40 in Serum or Plasma by calculation (test code = 03377-1) Cholesterol in LDL [Mass/volume] in 83 mg/dL 0-99 Serum or Plasma by calculation (test code = 76474-4) Laboratory comment [Text] in Report customer experience intern Narrative (test code = 77334-9) [facility]Hemoglobin.total in [id number] 00:00:00 Test Item Value Reference Range Interpretation Comments Hemoglobin A1c/Hemoglobin.total in 6.1 % 4.8-5.6 H Blood (test code = 4548-4) Glucose mean value [Mass/volume] in 128 mg/dL Blood Estimated from glycated hemoglobin (test code = 98397-9) [facility], [id number] 00:00:00 Test Item Value Reference Range Interpretation Comments Interpretation and review of laboratory note results (test code = 03374-8) Report (test code = 62949-0) . [facility] TSH panel - Serum or [id number] 00:00:00 Test Item Value Reference Range Interpretation Comments Thyrotropin [Units/volume] in 1.050 uIU/mL 0.450-4.500 Serum or Plasma by Detection limit <= 0.005 mIU/L (test code = 56277-3) Thyroxine (T4) free 1.08 NG/dL 0.82-1.77 [Mass/volume] in Serum or Plasma (test code = 3024-7) [facility]CBC [facility] Auto Differential panel - Blood 2020-02-09 00:00:00 Test Item Value Reference Range Interpretation Comments Leukocytes [#/volume] in Blood 10.1 x10e3/uL 3.4-10.8 by Automated count (test code = 6690-2) Erythrocytes [#/volume] in 4.13 x10e6/uL 3.77-5.28 Blood by Automated count (test code = 789-8) Hemoglobin [Mass/volume] in 13.0 g/dL 11.1-15.9 Blood (test code = 718-7) Hematocrit [Volume Fraction] of 38.0 % 34.0-46.6 Blood by Automated count (test code = 4544-3) MCV [Entitic volume] by 92 fL 79-97 Automated count (test code = 787-2) MCH [Entitic mass] by Automated 31.5 pg 26.6-33.0 count (test code = 785-6) MCHC [Mass/volume] by Automated 34.2 g/dL 31.5-35.7 count (test code = 786-4) Erythrocyte distribution width 14.2 % 11.7-15.4 [Ratio] by Automated count (test code = 788-0) Platelets [#/volume] in Blood 284 x10e3/uL 150-450 by Automated count (test code = 777-3) Neutrophils/100 leukocytes in 67 % not estab. Blood by Automated count (test code = 770-8) Lymphocytes/100 leukocytes in 23 % not estab. Blood by Automated count (test code = 736-9) Monocytes/100 leukocytes in 8 % not estab. Blood by Automated count (test code = 5905-5) Eosinophils/100 leukocytes in 1 % not estab. Blood by Automated count (test code = 713-8) Basophils/100 leukocytes in 1 % not estab. Blood by Automated count (test code = 706-2) immature cells (test code = customer experience intern immature cells) Neutrophils [#/volume] in Blood 6.8 x10e3/uL 1.4-7.0 by Automated count (test code = 751-8) Lymphocytes [#/volume] in Blood 2.3 x10e3/uL 0.7-3.1 by Automated count (test code = 731-0) Monocytes [#/volume] in Blood 0.8 x10e3/uL 0.1-0.9 by Automated count (test code = 742-7) Eosinophils [#/volume] in Blood 0.1 x10e3/uL 0.0-0.4 by Automated count (test code = 711-2) Basophils [#/volume] in Blood 0.1 x10e3/uL 0.0-0.2 by Automated count (test code = 704-7) Immature granulocytes/100 0 % not estab. leukocytes in Blood by Automated count (test code = 59110-1) Immature granulocytes 0.0 x10e3/uL 0.0-0.1 [#/volume] in Blood by Automated count (test code = 41841-8) Nucleated erythrocytes/100 customer experience intern leukocytes [Ratio] in Blood by Automated count (test code = 38190-1) Morphology [Interpretation] in customer experience intern Blood Narrative (test code = 30317-3) [facility] ProgramCom[facility] 2000 panel - Serum or [id number] 00:00:00 Test Item Value Reference Range Interpretation Comments Glucose [Mass/volume] in Serum 106 mg/dL 65-99 H or Plasma (test code = 2345-7) Urea nitrogen [Mass/volume] in 5 mg/dL 8-27 L Serum or Plasma (test code = 3094-0) Creatinine [Mass/volume] in 0.77 mg/dL 0.57-1.00 Serum or Plasma (test code = 2160-0) Glomerular filtration 80 mL/min/1.73 >59 rate/1.73 sq M.predicted among non-blacks [Volume Rate/Area] in Serum, Plasma or Blood by Creatinine-based formula (CKD-EPI) (test code = 05918-5) Glomerular filtration 92 mL/min/1.73 >59 rate/1.73 sq M.predicted among blacks [Volume Rate/Area] in Serum, Plasma or Blood by Creatinine-based formula (CKD-EPI) (test code = 71731-2) Urea nitrogen/Creatinine [Mass 6 12-28 L Ratio] in Serum or Plasma (test code = 3097-3) Sodium [Moles/volume] in Serum 129 mmol/L 134-144 L or Plasma (test code = 2951-2) Potassium [Moles/volume] in 4.3 mmol/L 3.5-5.2 Serum or Plasma (test code = 2823-3) Chloride [Moles/volume] in 90 mmol/L 96-106 L Serum or Plasma (test code = 2075-0) Carbon dioxide, total 20 mmol/L 20-29 [Moles/volume] in Serum or Plasma (test code = 2027-) Calcium [Mass/volume] in Serum 9.2 mg/dL 8.7-10.3 or Plasma (test code = 80870-1) Protein [Mass/volume] in Serum 7.2 g/dL 6.0-8.5 or Plasma (test code = 2885-2) Albumin [Mass/volume] in Serum 4.7 g/dL 3.8-4.8 or Plasma (test code = 1751-7) Globulin [Mass/volume] in 2.5 g/dL 1.5-4.5 Serum by calculation (test code = 57426-3) Albumin/Globulin [Mass Ratio] 1.9 1.2-2.2 in Serum or Plasma (test code = 1759-0) Bilirubin.total [Mass/volume] 1.2 mg/dL 0.0-1.2 in Serum or Plasma (test code = 1975-2) Alkaline phosphatase 239 IU/L 39-117 H [Enzymatic activity/volume] in Serum or Plasma (test code = 6768-6) Aspartate aminotransferase 18 IU/L 0-40 [Enzymatic activity/volume] in Serum or Plasma (test code = 1920-8) Alanine aminotransferase 10 IU/L 0-32 [Enzymatic activity/volume] in Serum or Plasma (test code = 1742-6) [facility] Hospital[facility] 1996 panel - Serum or Plasma 2020-02-09 00:00:00 Test Item Value Reference Range Interpretation Comments Cholesterol [Mass/volume] in Serum 235 mg/dL 100-199 H or Plasma (test code = 2093-3) Triglyceride [Mass/volume] in Serum 73 mg/dL 0-149 or Plasma (test code = 2571-8) Cholesterol in HDL [Mass/volume] in 111 mg/dL >39 Serum or Plasma (test code = 2085-9) Cholesterol in VLDL [Mass/volume] 12 mg/dL 5-40 in Serum or Plasma by calculation (test code = 44917-9) Cholesterol in LDL [Mass/volume] in 112 mg/dL 0-99 H Serum or Plasma by calculation (test code = 66833-8) Laboratory comment [Text] in Report customer experience intern Narrative (test code = 45639-2) [facility] HospitalPT and aPTT panel - Platelet poor plasma by Coagulation [id number] 00:00:00 Test Item Value Reference Range Interpretation Comments INR in Platelet poor plasma by 1.0 0.9-1.2 Coagulation assay (test code = 6301-6) Prothrombin time (PT) (test code = 10.6 sec 9.1-12.0 5902-2) aPTT in Platelet poor plasma by 32 sec 24-33 Coagulation assay (test code = 83054-8) [facility] ProgramMicroalbumin/Creatinine [Mass Ratio] in [id number] 00:00:00 Test Item Value Reference Range Interpretation Comments Creatinine [Mass/volume] in 154.3 mg/dL not estab. Urine (test code = 2161-8) Microalbumin [Mass/volume] in 48.2 ug/mL not estab. Urine (test code = 07452-6) Albumin/Creatinine [Mass ratio] 31 mg/g creat 0-29 H in Urine (test code = 9318-7) [facility] HospitalHemoglobin A1c/Hemoglobin.total in [id number] 00:00:00 Test Item Value Reference Range Interpretation Comments Hemoglobin A1c/Hemoglobin.total in 6.0 % 4.8-5.6 H Blood (test code = 4548-4) Glucose mean value [Mass/volume] in 126 mg/dL Blood Estimated from glycated hemoglobin (test code = 57994-4) [facility]cardi[facility] assessment panel, [id number] 00:00:00 Test Item Value Reference Range Interpretation Comments interpretation (test code = note interpretation) pdf (test code = pdf) . [facility] HospitalBacteria identified in Urine by [id number] 00:00:00 Test Item Value Reference Range Interpretation Comments Bacteria identified in Urine by no growth Culture (test code = 630-4) [facility] HospitalBacteria identified in Urine by [id number] 00:00:00 Test Item Value Reference Range Interpretation Comments Bacteria identified in Urine by no growth Culture (test code = 630-4) [facility] HospitalUrinalysis macro (dipstick) panel - [id number] 15:50:30 Test Item Value Reference Range Interpretation Comments Leukocytes (test code = Trace Leukocytes) Nitrite (test code = Nitrite) Neg Urobilinogen (test code = Neg Urobilinogen) Protein (test code = Protein) Trace pH (test code = pH) 6.5 Blood (test code = Blood) Neg Specific [place] (test code = 1.015 Specific [place]) Ketone (test code = Ketone) Neg Bilirubin (test code = Neg Bilirubin) Glucose (test code = Glucose) Neg Appearance (test code = slightly cloudy Appearance) Color (test code = Color) dark yellow [facility] HospitalUrinalysis macro (dipstick) panel - [id number] 15:50:30 Test Item Value Reference Range Interpretation Comments Leukocytes (test code = Trace Leukocytes) Nitrite (test code = Nitrite) Neg Urobilinogen (test code = Neg Urobilinogen) Protein (test code = Protein) Trace pH (test code = pH) 6.5 Blood (test code = Blood) Neg Specific [place] (test code = 1.015 Specific [place]) Ketone (test code = Ketone) Neg Bilirubin (test code = Neg Bilirubin) Glucose (test code = Glucose) Neg Appearance (test code = slightly cloudy Appearance) Color (test code = Color) dark yellow [facility] HospitalFree T4 and TSH panel - Serum or [id number] 00:00:00 Test Item Value Reference Range Interpretation Comments Thyrotropin [Units/volume] in 1.030 uIU/mL 0.450-4.500 Serum or Plasma by Detection limit <= 0.005 mIU/L (test code = 71952-9) Thyroxine (T4) free 1.07 NG/dL 0.82-1.77 [Mass/volume] in Serum or Plasma (test code = 3024-7) [facility] HospitalCB W Auto Differential panel - Blood 2019-02-02 00:00:00 Test Item Value Reference Range Interpretation Comments Leukocytes [#/volume] in Blood 14.0 x10e3/uL 3.4-10.8 H by Automated count (test code = 6690-2) Erythrocytes [#/volume] in 3.85 x10e6/uL 3.77-5.28 Blood by Automated count (test code = 789-8) Hemoglobin [Mass/volume] in 12.3 g/dL 11.1-15.9 Blood (test code = 718-7) Hematocrit [Volume Fraction] of 37.0 % 34.0-46.6 Blood by Automated count (test code = 4544-3) Erythrocyte mean corpuscular 96 fL 79-97 volume [Entitic volume] by Automated count (test code = 787-2) Erythrocyte mean corpuscular 31.9 pg 26.6-33.0 hemoglobin [Entitic mass] by Automated count (test code = 785-6) Erythrocyte mean corpuscular 33.2 g/dL 31.5-35.7 hemoglobin concentration [Mass/volume] by Automated count (test code = 786-4) Erythrocyte distribution width 16.3 % 12.3-15.4 H [Ratio] by Automated count (test code = 788-0) Platelets [#/volume] in Blood 223 x10e3/uL 150-450 by Automated count (test code = 777-3) Neutrophils/100 leukocytes in 79 % not estab. Blood by Automated count (test code = 770-8) Lymphocytes/100 leukocytes in 14 % not estab. Blood by Automated count (test code = 736-9) Monocytes/100 leukocytes in 5 % not estab. Blood by Automated count (test code = 5905-5) Eosinophils/100 leukocytes in 2 % not estab. Blood by Automated count (test code = 713-8) Basophils/100 leukocytes in 0 % not estab. Blood by Automated count (test code = 706-2) immature cells (test code = customer experience intern immature cells) Neutrophils [#/volume] in Blood 11.0 x10e3/uL 1.4-7.0 H by Automated count (test code = 751-8) Lymphocytes [#/volume] in Blood 2.0 x10e3/uL 0.7-3.1 by Automated count (test code = 731-0) Monocytes [#/volume] in Blood 0.6 x10e3/uL 0.1-0.9 by Automated count (test code = 742-7) Eosinophils [#/volume] in Blood 0.2 x10e3/uL 0.0-0.4 by Automated count (test code = 711-2) Basophils [#/volume] in Blood 0.0 x10e3/uL 0.0-0.2 by Automated count (test code = 704-7) immature granulocytes (test 0 % not estab. code = immature granulocytes) Granulocytes Immature 0.0 x10e3/uL 0.0-0.1 [#/volume] in Blood by Automated count (test code = 64858-1) Nucleated erythrocytes/100 customer experience intern leukocytes [Ratio] in Blood by Automated count (test code = 46119-1) Morphology [interpretation] in customer experience intern Blood Narrative (test code = 21806-2) [facility] HospitalComprehensive metabolic 2000 panel - Serum or [id number] 00:00:00 Test Item Value Reference Range Interpretation Comments Glucose [Mass/volume] in Serum 84 mg/dL 65-99 or Plasma (test code = 2345-7) Urea nitrogen [Mass/volume] in 12 mg/dL 8-27 Serum or Plasma (test code = 3094-0) Creatinine [Mass/volume] in 0.77 mg/dL 0.57-1.00 Serum or Plasma (test code = 2160-0) eGFR if nonafricn AM (test 81 mL/min/1.73 >59 code = eGFR if nonafricn AM) eGFR if africn AM (test code = 93 mL/min/1.73 >59 eGFR if africn AM) Urea nitrogen/Creatinine [Mass 16 12-28 Ratio] in Serum or Plasma (test code = 3097-3) Sodium [Moles/volume] in Serum 138 mmol/L 134-144 or Plasma (test code = 2951-2) Potassium [Moles/volume] in 4.3 mmol/L 3.5-5.2 Serum or Plasma (test code = 2823-3) Chloride [Moles/volume] in 96 mmol/L 96-106 Serum or Plasma (test code = 2075-0) Carbon dioxide, total 23 mmol/L 20-29 [Moles/volume] in Serum or Plasma (test code = 2027-9) Calcium [Mass/volume] in Serum 9.1 mg/dL 8.7-10.3 or Plasma (test code = 51172-2) Protein [Mass/volume] in Serum 7.2 g/dL 6.0-8.5 or Plasma (test code = 2885-2) Albumin [Mass/volume] in Serum 4.6 g/dL 3.6-4.8 or Plasma (test code = 1751-7) Globulin [Mass/volume] in 2.6 g/dL 1.5-4.5 Serum by calculation (test code = 82797-3) Albumin/Globulin [Mass Ratio] 1.8 1.2-2.2 in Serum or Plasma (test code = 1759-0) Bilirubin.total [Mass/volume] 0.9 mg/dL 0.0-1.2 in Serum or Plasma (test code = 1975-2) Alkaline phosphatase 171 IU/L 39-117 H [Enzymatic activity/volume] in Serum or Plasma (test code = 6768-6) Aspartate aminotransferase 30 IU/L 0-40 [Enzymatic activity/volume] in Serum or Plasma (test code = 1920-8) Alanine aminotransferase 12 IU/L 0-32 [Enzymatic activity/volume] in Serum or Plasma (test code = 1742-6) [facility] HospitalLipid 1996 panel - Serum or Plasma 2019-02-02 00:00:00 Test Item Value Reference Range Interpretation Comments Cholesterol [Mass/volume] in Serum 239 mg/dL 100-199 H or Plasma (test code = 2093-3) Triglyceride [Mass/volume] in Serum 64 mg/dL 0-149 or Plasma (test code = 2571-8) Cholesterol in HDL [Mass/volume] in 143 mg/dL >39 Serum or Plasma (test code = 2085-9) Cholesterol in VLDL [Mass/volume] 13 mg/dL 5-40 in Serum or Plasma by calculation (test code = 65169-0) Cholesterol in LDL [Mass/volume] in 83 mg/dL 0-99 Serum or Plasma by calculation (test code = 35459-4) comment: (test code = comment:) customer experience intern [facility] HospitalHemoglobin A1c/Hemoglobin.total in [id number] 00:00:00 Test Item Value Reference Range Interpretation Comments Hemoglobin A1c/Hemoglobin.total in 5.6 % 4.8-5.6 Blood (test code = 4548-4) [facility]cardi[facility] assessment panel, [id number] 00:00:00 Test Item Value Reference Range Interpretation Comments interpretation (test code = note interpretation) pdf image (test code = pdf image) . [facility]
[2021-12-12] MEDS ORDERED: THIAMINE 200 MG/2 ML INJ ONE (21:00)
[2021-12-12] MEDS ORDERED: PANTOPRAZOLE 40 MG INJ ONE (21:00)
[2021-12-12] MEDS ORDERED: NA CHLORIDE 0.9% 500 ML ONE (21:00)
[2021-12-12] MEDS ORDERED: NA CHLORIDE 0.9% 1,000 ML ONE (21:00)
[2021-12-12] MEDS ORDERED: SILVER SULFADIAZINE 1% 25 GM TOP ONE (21:00)
[2021-12-12] MEDS ORDERED: FENTANYL CITR 100 MCG/2 ML ONE (21:19)
[2021-12-12] MEDS ORDERED: ONDANSETRON 4 MG/2 ML VIAL ONE (21:23)
[2021-12-12] MEDS ORDERED: LEVALBUTEROL 1.25 MG/3 ML NEB ONE (21:23)
[2021-12-12] MEDS ORDERED: CEFAZOLIN SODIUM 1 GM/VIAL ONE (21:23)
[2021-12-12] MEDS ORDERED: IPRATROPIUM BROM 0.5MG/2.5ML ONE (21:24)
[2021-12-12] MEDS ORDERED: NA CHLORIDE 0.9% 100 ML ONE (21:24)
[2021-12-12 21:29] LABS: Protime INR 1.11
[2021-12-12 21:45] LABS: Albumin 2.1 g/dL (3.4-5.0); Bilirubin Direct 0.1 mg/dL (0-0.2); Bilirubin Total 0.3 mg/dL (0.2-1.0); Magnesium 1.7 mg/dL (1.8-2.4); Protein, Total 5.5 g/dL (6.4-8.2); Troponin High Sensitivity 5.6 pg/mL (<58.9)
--- NOTE | 2021-12-12 22:01 | RAD REPORT ---
EXAM DESCRIPTION: RAD - Chest Single View - 12/12/2021 9:26 pm CLINICAL HISTORY: COUGH Chest pain. COMPARISON: CHEST PA AND LAT 2 VIEW dated 06/24/2010; CHEST SINGLE VIEW dated 10/10/2009 FINDINGS: Portable technique limits examination quality. The lungs are emphysematous but grossly clear. The heart is normal in size. No displaced fractures.St ent is present in the aorta. IMPRESSION: No acute intrathoracic process suspected.
--- NOTE | 2021-12-12 22:08 | RAD REPORT ---
EXAM DESCRIPTION: RAD - Foot Right 3 View - 12/12/2021 9:26 pm CLINICAL HISTORY: Pain Soft tissue wound COMPARISON: No comparisons FINDINGS: No fracture, foreign body or radiographic evidence of osteomyelitis. Small posterior calca patrice spur.
--- NOTE | 2021-12-12 22:36 | RAD REPORT ---
EXAM DESCRIPTION: CT - Head C Spine Cap Brittnee Villegas - 12/12/2021 10:21 pm CLINICAL HISTORY: Trauma, head and neck injury. Chest, abdomen and pelvis pain. FALL COMPARISON: No comparisons TECHNIQUE: CT head without contrast. CT cervical spine without contrast with coronal and sagittal reformatted images. CT chest, abdomen and pelvis with IV contrast (approximately 100 mL nonionic IV contrast) with brennan l and sagittal reformatted images of the spine. All CT scans are performed using dose optimization technique as appropriate and may include automated exposure control or mA/KV adjustment according to patient size. FINDINGS: CT HEAD WITHOUT CONTRAST: No intracranial hemorrhage, hydrocephalus or extra-axial fluid collection. Moderate brain atrophy. No areas of brain edema or midline shift. The paranasal sinuses and mastoids are clear. The calvarium is intact. CT CERVICAL SPINE WITHOUT CONTRAST: No fracture or subluxation. Moderate lower cervical degenerative changes. The prevertebral soft tissu es are normal in thickness.Atherosclerosis involves both carotid arteries. CT CHEST, ABDOMEN, PELVIS WITH CONTRAST: Emphysematous changes are present throughout the lungs. Linear atelectasis is present in both lung ba ses. Calcified granuloma seen in the left apex. 10 mm spiculated area of nodularity seen right upper lobe posteriorly.No pneumothorax or pericardial/pleural fluid. No evidence of intra-abdominal visceral injury, free fluid or free air. Sigmoid diverticulosis coli w ithout diverticulitis. No concerning pelvic findings. Heavy aortoiliac atherosclerosis. No fractures. IMPRESSION: Negative for acute traumatic findings. COPD with 10 mm spiculated area of nodularity right upper lobe posteriorly. Follow-up CT chest is rec ommended 6 months to monitor this finding.
[2021-12-12 23:20] LABS: Absolute Lymphocytes (CBC) 1.4 K/uL (0.7-4.9); Lymphocytes % 15.5 % (15.3-44.8); MCV 105.1 fL (80-100); MPV 7.5 fL (7.6-11.3); RBC Red Blood Cell Count 2.38 M/uL (3.86-4.86)
--- NOTE | 2021-12-12 23:28 | EDPHYS ---
Physician Documentation [facility] Name: Kristin Lester Age: 71 yrs Sex: Female : 1950 Arrival Date: 12/12/2021 Time: 18:50 Bed 9 Private MD: BAUTISTA Physician Julian Kohli HPI: 12/12 20:42 This 71 yrs old Female presents to ER via Wheelchair with complaints of Fall camila Injury, Breathing Difficulty. Historical: - Allergies: 19:23 No Known Allergies; as6 - Home Meds: 19:23 citalopram 20 mg tab 1 tab once daily [Active]; gabapentin 100 mg oral cap 1 cap 3 as6 times per day [Active]; duloxetine 30 mg oral CDRS 1 cap once daily [Active]; pantoprazole 40 mg oral grps 1 packet once daily [Active]; montelukast 10 mg oral tab 1 tab once daily [Active]; folic acid 1 mg Oral tab 1 tab once daily [Active]; atorvastatin 10 mg oral tab 1 tab once daily [Active]; amlodipine 5 mg tab 1 tab once daily [Active]; buspirone 5 mg Oral tab 1 tab 2 times per day [Active]; aspirin 81 mg Oral cap 1 cap once daily [Active]; metoprolol tartrate 25 mg Oral tab 1 tab 2 times per day [Active]; - PMHx: 19:23 Hypertensive disorder; History of urinary tract infection; Depressive disorder; Chronic as6 obstructive lung disease; - PSHx: 19:23 knee; Total abdominal hysterectomy; as6 - Immunization history:: Client reports receiving the 2nd dose of the Covid vaccine, moderna. - Social history:: Smoking status: Patient reports the use of cigarette tobacco products, smokes one-half pack cigarettes per day. ROS: 20:44 Constitutional: Negative for fever, chills, and weight loss, Eyes: Negative for injury, camila pain, redness, and discharge, ENT: Negative for injury, pain, and discharge, Neck: Negative for injury, pain, and swelling, Cardiovascular: Negative for chest pain, palpitations, and edema, Abdomen/GI: Negative for abdominal pain, nausea, vomiting, diarrhea, and constipation, Back: Negative for injury and pain, : Negative for injury, bleeding, discharge, and swelling, Neuro: Negative for headache, weakness, numbness, tingling, and seizure, Psych: Negative for depression, anxiety, suicide ideation, homicidal ideation, and hallucinations, Allergy/Immunology: Negative for hives, rash, and allergies, Endocrine: Negative for neck swelling, polydipsia, polyuria, polyphagia, and marked weight changes, Hematologic/Lymphatic: Negative for swollen nodes, abnormal bleeding, and unusual bruising. 20:44 Respiratory: Positive for cough, shortness of breath, on exertion. 20:44 MS/extremity: Positive for decreased range of motion, laceration, pain, swelling, tenderness, of the right foot and left leg. Exam: 20:44 Constitutional: This is a well developed, well nourished patient who is awake, alert, camila and in no acute distress. Head/Face: Normocephalic, atraumatic. Eyes: Pupils equal round and reactive to light, extra-ocular motions intact. Lids and lashes normal. Conjunctiva and sclera are non-icteric and not injected. Cornea within normal limits. Periorbital areas with no swelling, redness, or edema. ENT: Nares patent. No nasal discharge, no septal abnormalities noted. Tympanic membranes are normal and external auditory canals are clear. Oropharynx with no redness, swelling, or masses, exudates, or evidence of obstruction, uvula midline. Mucous membranes moist. Neck: Trachea midline, no thyromegaly or masses palpated, and no cervical lymphadenopathy. Supple, full range of motion without nuchal rigidity, or vertebral point tenderness. No Meningismus. Chest/axilla: Normal chest wall appearance and motion. Nontender with no deformity. No lesions are appreciated. Cardiovascular: Regular rate and rhythm with a normal S1 and S2. No gallops, murmurs, or rubs. Normal PMI, no JVD. No pulse deficits. Abdomen/GI: Soft, non-tender, with normal bowel sounds. No distension or tympany. No guarding or rebound. No evidence of tenderness throughout. Back: No spinal tenderness. No costovertebral tenderness. Full range of motion. Neuro: Awake and alert, GCS 15, oriented to person, place, time, and situation. Cranial nerves II-XII grossly intact. Motor strength 5/5 in all extremities. Sensory grossly intact. Cerebellar exam normal. Normal gait. Psych: Awake, alert, with orientation to person, place and time. Behavior, mood, and affect are within normal limits. 20:44 Respiratory: the patient does not display signs of respiratory distress, Respirations: no acute changes, labored breathing, is not present, Breath sounds: bronchial sounds, that are mild, decreased breath sounds, that are moderate, rhonchi, that are mild, stridor, is not appreciated, + upper airway congestion. wheezing: expiratory Respiratory rate: 20 21:08 Skin: cellulitis, that is mild, that is moderate, induration, that is mild is noted, camila injury, avulsion(s), laceration(s), the wound is approximately 3.5 cm(s), with a depth of .25 cm(s), of the dorsum of right foot. 21:33 Musculoskeletal/extremity: ROM: full active range of motion, full passive range of camila motion, limited active range of motion due to pain, limited passive range of motion due to pain, Circulation is intact in all extremities. Sensation intact. Compartment Syndrome exam of affected extremity: is normal. DVT Exam: no swelling, negative Homans' sign noted on exam, no appreciated bluish discoloration, no erythema, no increased warmth, pain, tenderness. 21:40 ECG was reviewed by the Attending Physician. camila 22:59 Abdomen/GI: Inspection: abdomen appears normal, Bowel sounds: normal, Palpation: soft, camila nontender, Rectal exam: rectal tone normal, Stool: guaiac negative, hemorrhoid(s), are not appreciated, mass, is not appreciated, swelling, is not appreciated, tenderness, is not appreciated, Liver: no appreciated palpable abnormalities, Hernia: not appreciated. Vital Signs: 19:20 BP 116 / 65; Pulse 88; Resp 17 S; Temp 97.7(O); Pulse Ox 94% on R/A; Weight 58.97 kg as6 (R); Height 5 ft. 8 in. (172.72 cm) (R); Pain 9/10; 19:20 Body Mass Index 19.77 (58.97 kg, 172.72 cm) as6 MDM: 19:59 Patient medically screened. camila 20:46 Differential diagnosis: abrasion, closed head injury, contusion, fracture, sprain, camila strain. Data reviewed: vital signs, nurses notes, lab test result(s), EKG, radiologic studies, CT scan, plain films. 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 Test interpretation: by ED physician or midlevel provider: ECG, plain radiologic studies. Counseling: I had a detailed discussion with the patient and/or guardian regarding: the historical points, exam findings, and any diagnostic results supporting the discharge/admit diagnosis, lab results, radiology results, the need for further work-up and treatment in the hospital. 12/12 20:41 Order name: Basic Metabolic Panel; Complete Time: 22:00 [facility] 12/12 20:41 Order name: CBC with Diff; Complete Time: 23:42 [facility] 12/12 20:41 Order name: LFT's; Complete Time: 22:00 [facility] 12/12 20:41 Order name: Magnesium; Complete Time: 22:00 [facility] 12/12 20:41 Order name: NT PRO-BNP; Complete Time: 22:00 [facility] 12/12 20:41 Order name: PT-INR; Complete Time: 21:32 [facility] 12/12 20:41 Order name: Troponin HS; Complete Time: 22:00 [facility] 12/12 20:41 Order name: Type And Screen; Complete Time: 22:36 [facility] 12/12 20:41 Order name: Lipase; Complete Time: 22:00 [facility] 12/12 20:41 Order name: Urine Culture [facility] 12/12 21:49 Order name: SARS-COV-2 RT PCR; Complete Time: 22:48 [facility] 12/12 23:23 Order name: CBC Smear Scan; Complete Time: 23:42 [facility] 12/12 23:56 Order name: Urine Dipstick-Ancillary; Complete Time: 00:12 [facility] 12/12 20:41 Order name: XRAY Chest (1 view); Complete Time: 22:05 [facility] 12/12 20:44 Order name: CT Traumagram (Head C Spine CAP W Con); Complete Time: 22:48 [facility] 12/12 21:07 Order name: Foot Right 3 View XRAY; Complete Time: 22:24 [facility] 12/12 20:41 Order name: EKG; Complete Time: 20:42 [facility] 12/12 20:41 Order name: Cardiac monitoring [facility] 12/12 20:41 Order name: EKG - Nurse/Tech; Complete Time: 21:40 [facility] 12/12 20:41 Order name: IV Saline Lock; Complete Time: 21:19 [facility] 12/12 20:41 Order name: Labs collected and sent; Complete Time: 21: [facility] 12/12 20:41 Order name: O2 Per Protocol; Complete Time: 21: [facility] 12/12 20:41 Order name: O2 Sat Monitoring; Complete Time: 21: [facility] 12/12 20:41 Order name: Wound Care; Complete Time: 21:43 [facility] 12/12 20:41 Order name: Urine Dipstick-Ancillary (obtain specimen); Complete Time: 23:57 [facility] EC:40 Rate is 9 beats/min. Rhythm is regular. QRS [place] is Normal. [place] interval is normal. QRS camila interval is normal. QT interval is normal. T waves are Normal. No ST changes noted. Clinical impression: Normal ECG and No evidence of ischemia. Interpreted by me. Reviewed by me. Administered Medications: 22:01 Discontinued: NS 0.9% 1000 ml IV at 125 ml/hr continuous camila 21:42 Drug: Xopenex (levalbuterol) 1.25 mg Route: Inhalation; tw5 23:51 Follow up: Response: No adverse reaction tw5 21:42 Drug: AtroVENT (ipratropium) Aerosol 0.5 mg Route: Inhalation; tw5 23:51 Follow up: Response: No adverse reaction tw5 21:42 Drug: fentaNYL (PF) 25 mcg Route: IVP; Site: right forearm; tw5 23:50 Follow up: Response: No adverse reaction; Pain is unchanged, physician notified; RASS: tw5 Alert and Calm (0) 21:42 Drug: Zofran (Ondansetron) 4 mg Route: IVP; Site: right forearm; tw5 23:50 Follow up: Response: No adverse reaction tw5 21:43 Drug: NS 0.9% 500 ml Route: IV; Rate: bolus; Site: right forearm; tw5 23:51 Follow up: Response: No adverse reaction; IV Status: Completed infusion; IV Intake: tw5 500ml :43 Drug: ProTONIX (pantoprazole) 40 mg Route: IVP; Site: right forearm; tw5 23:51 Follow up: Response: No adverse reaction tw5 21:43 Drug: Thiamine 100 mg Route: IV; Rate: per protocol; Site: right forearm; tw5 23:52 Follow up: IV Status: Completed infusion tw5 21:43 Drug: NS 0.9% 1000 ml Route: IV; Rate: 125 ml/hr; Site: right forearm; 21:43 Drug: Silver SulfADIAZINE Cream 1 % 1 application Route: Topical; Site: affected area; 23:51 Follow up: Response: No adverse reaction 21:44 Drug: Ancef (cefazolin) 1 grams Route: IVPB; Site: right forearm; 23:51 Follow up: Response: No adverse reaction; IV Status: Completed infusion 23:50 Drug: Potassium Effervescent Tablet 50 mEq Route: PO; 23:50 Drug: Magnesium Sulfate 1 grams Route: IVPB; Infused Over: 1 hrs; Site: right forearm; 23:50 Drug: NS 0.9% with KCl 20 mEq/L 1000 ml Route: IV; Rate: 125 ml/hr; Site: right forearm; Disposition Summary: 12/12/21 23:27 Hospitalization Ordered Location: Telemetry/MedSurg (Inpatient) camila Condition: Fair camila Problem: new camila Symptoms: have improved camila Bed/Room Type: Standard camila Hospitalization Status: Inpatient Admission(12/12/21 23:29) camila Provider: Pantera Garay(12/12/21 23:30) la1 Room Assignment: 403(12/13/21 00:22) cg Diagnosis - History of falling camila - Fall on same level, unspecified camila - Laceration without foreign body of lower leg camila - Laceration without foreign body, right lower leg camila - Laceration without foreign body, right foot camila - Anemia, unspecified camila - COPD/ Chronic obstructive pulmonary disease, unspecified camila - Tobacco abuse counseling camila - Tobacco use camila - Hypomagnesemia camila - Hypokalemia camila Forms: - Medication Reconciliation Form camila - SBAR form camila Signatures: Dispatcher [employer] EDMS Julian Kohli MD MD cha Attema, Lee, RN CARDIOVASCULAR ICU-C RN CARDIOVASCULAR ICU-Cla1 Camryn Mann RN RN Madhuri Ross tw5 Kenneth Kelley RN RN as6 Corrections: (The following items were deleted from the chart) 21:49 20:44 SARS-COV-2 Antigen Rapid+I.LAB.BRZ ordered. EDNY EDMS 23:29 23:27 Inpatient Admission camila camila 23:30 23:27 Michael Brown [facility] la1 12/13 00:22 12/12 23:[address] [facility]
--- NOTE | 2021-12-12 23:28 | ER ---
Nurse's Notes [facility] Name: Kristin Lester Age: 71 yrs Sex: Female : 1950 Arrival Date: 12/12/2021 Time: 18:50 Bed 9 Private MD: Diagnosis: History of falling;Fall on same level, unspecified;Laceration without foreign body of lower leg;Laceration without foreign body, right lower leg;Laceration without foreign body, right foot;Anemia, unspecified;COPD/ Chronic obstructive pulmonary disease, unspecified;Tobacco abuse counseling;Tobacco use;Hypomagnesemia;Hypokalemia Presentation: 12/12 19:20 Chief complaint: Patient states: "I've got a lot of wounds on me that need to be as6 healed" family member states that she has been dressing wounds and they are getting worse. Coronavirus screen: At this time, the client does not indicate any symptoms associated with coronavirus-19. Ebola Screen: No symptoms or risks identified at this time. Initial Sepsis Screen: Does the patient meet any 2 criteria? No. Patient's initial sepsis screen is negative. Does the patient have a suspected source of infection? No. Patient's initial sepsis screen is negative. Risk Assessment: Do you want to hurt yourself or someone else? Patient reports no desire to harm self or others. Onset of symptoms was December 12, 2021. 19:20 Method Of Arrival: Wheelchair as6 19:20 Acuity: LAWRENCE 3 as6 Triage Assessment: 12/13 00:29 General: Appears uncomfortable, Behavior is calm, cooperative, appropriate for age. tw5 Pain: Pain currently is 10 out of 10 on a pain scale. Historical: - Allergies: 12/12 19:23 No Known Allergies; as6 - Home Meds: 19:23 citalopram 20 mg tab 1 tab once daily [Active]; gabapentin 100 mg oral cap 1 cap 3 as6 times per day [Active]; duloxetine 30 mg oral CDRS 1 cap once daily [Active]; pantoprazole 40 mg oral grps 1 packet once daily [Active]; montelukast 10 mg oral tab 1 tab once daily [Active]; folic acid 1 mg Oral tab 1 tab once daily [Active]; atorvastatin 10 mg oral tab 1 tab once daily [Active]; amlodipine 5 mg tab 1 tab once daily [Active]; buspirone 5 mg Oral tab 1 tab 2 times per day [Active]; aspirin 81 mg Oral cap 1 cap once daily [Active]; metoprolol tartrate 25 mg Oral tab 1 tab 2 times per day [Active]; - PMHx: 19:23 Hypertensive disorder; History of urinary tract infection; Depressive disorder; Chronic as6 obstructive lung disease; - PSHx: 19:23 knee; Total abdominal hysterectomy; as6 - Immunization history:: Client reports receiving the 2nd dose of the Covid vaccine, moderna. - Social history:: Smoking status: Patient reports the use of cigarette tobacco products, smokes one-half pack cigarettes per day. Screenin:11 Abuse screen: Denies threats or abuse. Denies injuries from another. Nutritional tw5 screening: No deficits noted. Tuberculosis screening: No symptoms or risk factors identified. Fall Risk Fall in past 12 months (25 points). Secondary diagnosis (15 points). Assessment: 20:11 General: Wounds of various stages noted across the legs and feet. Daughter at the tw5 bedside " She falls all the times because sometimes when she stands up her blood pressure and oxygen level drops and she falls." She further stated " She is on two differnent antibiotics and I have been trying to address the wounds but they are getting bad and her leg is becoming swollen.". Neuro: Level of Consciousness is awake, alert, obeys commands, Oriented to person, place, time, situation. Derm: Skin is fragile, is thin, Bruising that is. Vital Signs: 19:20 BP 116 / 65; Pulse 88; Resp 17 S; Temp 97.7(O); Pulse Ox 94% on R/A; Weight 58.97 kg as6 (R); Height 5 ft. 8 in. (172.72 cm) (R); Pain 9/10; 19:20 Body Mass Index 19.77 (58.97 kg, 172.72 cm) as6 ED Course: 18:50 Patient arrived in ED. ss 19:23 Triage completed. as6 19:28 Arm band placed on. as6 19:43 Madhuri Becker is Primary Nurse. tw5 19:59 Julian Kohli MD is Attending Physician. camila 20:11 Patient has correct armband on for positive identification. Side rails up X2. Adult w/ tw5 patient. Pulse ox on. Door closed. Noise minimized. Moved to private room. Warm blanket given. Verbal reassurance given. 21:19 Inserted saline lock: 24 gauge in right forearm, using aseptic technique. Blood ds4 collected. 21:28 XRAY Chest (1 view) In Process Unspecified. EDMS 21:28 Foot Right 3 View XRAY In Process Unspecified. EDMS 21:43 Type And Screen Sent. tw5 22:23 CT Traumagram (Head C Spine CAP W Con) In Process Unspecified. EDMS 23:25 Michael Brown MD is Hospitalizing Provider. camila 23:30 Pantera Garay MD is Hospitalizing Provider. la1 23:57 Urine Culture Sent. ds4 Administered Medications: 22:01 Discontinued: NS 0.9% 1000 ml IV at 125 ml/hr continuous camila 21:42 Drug: Xopenex (levalbuterol) 1.25 mg Route: Inhalation; tw5 23:51 Follow up: Response: No adverse reaction tw5 21:42 Drug: AtroVENT (ipratropium) Aerosol 0.5 mg Route: Inhalation; tw5 23:51 Follow up: Response: No adverse reaction tw5 21:42 Drug: fentaNYL (PF) 25 mcg Route: IVP; Site: right forearm; tw5 23:50 Follow up: Response: No adverse reaction; Pain is unchanged, physician notified; RASS: tw5 Alert and Calm (0) 21:42 Drug: Zofran (Ondansetron) 4 mg Route: IVP; Site: right forearm; tw5 23:50 Follow up: Response: No adverse reaction tw5 :43 Drug: NS 0.9% 500 ml Route: IV; Rate: bolus; Site: right forearm; tw5 23:51 Follow up: Response: No adverse reaction; IV Status: Completed infusion; IV Intake: tw5 500ml :43 Drug: ProTONIX (pantoprazole) 40 mg Route: IVP; Site: right forearm; tw5 23:51 Follow up: Response: No adverse reaction tw5 :43 Drug: Thiamine 100 mg Route: IV; Rate: per protocol; Site: right forearm; tw5 23:52 Follow up: IV Status: Completed infusion tw5 :43 Drug: NS 0.9% 1000 ml Route: IV; Rate: 125 ml/hr; Site: right forearm; tw5 21:43 Drug: Silver SulfADIAZINE Cream 1 % 1 application Route: Topical; Site: affected area; 23:51 Follow up: Response: No adverse reaction 21:44 Drug: Ancef (cefazolin) 1 grams Route: IVPB; Site: right forearm; tw 23:51 Follow up: Response: No adverse reaction; IV Status: Completed infusion 23:50 Drug: Potassium Effervescent Tablet 50 mEq Route: PO; 23:50 Drug: Magnesium Sulfate 1 grams Route: IVPB; Infused Over: 1 hrs; Site: right forearm; 23:50 Drug: NS 0.9% with KCl 20 mEq/L 1000 ml Route: IV; Rate: 125 ml/hr; Site: right forearm; Medication: 20:11 VIS not applicable for this client. Intake: 23:51 IV: 500ml; Total: 500ml. Outcome: 23:27 Decision to Hospitalize by Provider. camila 12/13 00:34 Admitted to Med/surg Report called to Report called to [facility] 01:12 Patient left the ED. Signatures: Dispatcher [employer] EDMS Julian Kohli MD MD cha Smirch, Shelby, LORETA RN Mundo Spence ds4 Enrico López, FIELD MARKETING MANAGER-C FIELD MARKETING MANAGER-Madhuri Del Valle tw5 Kenneth Kelley RN RN as6 Corrections: (The following items were deleted from the chart) 12/12 21:49 21:43 SARS-COV-2 Antigen Rapid+I.LAB.BRZ drawn and sent. tw5 [facility]
[2021-12-12 23:38] LABS: Anisocytosis 1+; Blood Morphology Comment NOTED (NOT SEEN); Hypochromasia 1+; Macrocytosis 1+; Platelet Estimate ADEQ; White Blood Cell Scan OK (OK)
[2021-12-12] MEDS ORDERED: POTASSIUM 25 MEQ EFFERV TAB ONE (23:39)
[2021-12-12] MEDS ORDERED: NS KCL 20MEQ 1,000 ML IV ONE (23:39)
[2021-12-12] MEDS ORDERED: MAGNESIUM SULFATE 1 gm IVPB 1 GM/100 ML BAG IV ONE (23:40)
[2021-12-12 23:56] LABS: Urine Blood Trace-intact (Negative); Urine Glucose Negative (Negative); Urine Protein Negative (Negative); Urine Specific Gravity 1.015 (1.005-1.030)
--- NOTE | 2021-12-13 00:23 | P.HP ---
Certification for Inpatient Patient admitted to: Inpatient With expected LOS: >2 Midnights Patient will require the following post-hospital care: None Practitioner: I am a practitioner with admitting privileges, knowledge of patient current condition, hospital course, and medical plan of care. Services: Services provided to patient in accordance with Admission requirements found in Title 42 Section 412.3 of the Code of Federal Regulations <Enrico Lpóez - Last Filed: 12/13/21 00:14> Patient History Date of Service: 12/13/21 Primary Care Provider: Ruslan santos Reason for admission: RLE cellulitis, falls History of Present Illness: 71-year-old female with history of COPD on home O2, hypertension, depression, alcohol use disorder, CAD presents the emergency department for leg wounds, frequent falls. Patient reports that she is been having frequent falls over the course of the last few weeks with multiple abrasions/wounds to her upper and lower extremities, wound to the right foot appear to be infected. Patient was evaluated in the emergency department her labs were significant for hemoglobin 8.2 hematocrit 25 MCV 105.1 potassium 3.0 magnesium 1.7 albumin 2.1 She has a infeced wound to the dorsum of her right foot with surrounding cellulitis. No SIRS criteria present currently. Pt with multiple open wounds to her extremities from multiple falls, reports she has always fallen frequently, Was a heavy drinker but has not has a drink in a week reportedly, also reports feeling dizzy/lightheaded when she stands. Patient was given IV antibioticsAncef in the ED Hemoccult/stool guaiac testing was performed which was negative. ED provider wishes to admit for further evaluation and management of right lower extremity cellulitis, frequent falls. - Past Medical/Surgical History -: COPD on home 02 -: HTN -: Depression -: ETOH use disorder -: Tobacco abuse -: CAD -: Left knee -: Hysterectomy Psychosocial/ Personal History: Lives at home with family. - Family History Mother -: Stroke - Social History Smoking Status: Current every day smoker Counseled patient to stop smoking for: less than 10 minutes Smoking therapy provided: No (PT declined) Alcohol use: Yes CD- Drugs: No Caffeine use: Yes Place of Residence: Home <Enrico López - Last Filed: 12/13/21 00:14> Date of Service: 12/13/21 <Pantera Garay - Last Filed: 12/13/21 16:30> Review of Systems 10-point ROS is otherwise unremarkable General: Weakness, Other (Frequent falls) Musculoskeletal: Leg Pain, As per HPI <Enrico López - Last Filed: 12/13/21 00:14> Physical Examination - Physical Exam General: Alert, In no apparent distress, Oriented x3 HEENT: Atraumatic, PERRLA, Mucous membr. moist/pink, EOMI, Sclerae nonicteric Neck: Supple, 2+ carotid pulse no bruit, No LAD, Without JVD or thyroid abnormality Respiratory: Clear to auscultation bilaterally, Normal air movement Cardiovascular: Regular rate/rhythm, Normal S1 S2 Capillary refill: <2 Seconds Gastrointestinal: Normal bowel sounds, No tenderness Musculoskeletal: No tenderness Integumentary: Other (Multiple abrasions/wounds to upper/lower extremity, wound to dorsum of right foot with swelling, tenderness, erythems, surrounding cellulitis. ) Neurological: Normal speech, Normal strength at 5/5 x4 extr, Normal tone, Normal affect - Studies Laboratory Data (last 24 hrs) 12/12/21 23:12: WBC 9.10, Hgb 8.2 L, Hct 25.0 L, Plt Count 192 12/12/21 21:05: PT 12.2, INR 1.11 12/12/21 21:05: Sodium 140, Potassium 3.0 L, BUN 9, Creatinine 0.43 L, Glucose 111 H, Magnesium 1.7 L, Total Bilirubin 0.3, AST 12 L, ALT 12, Alkaline Phosphatase 109, Lipase 64 L <Enrico López - Last Filed: 12/13/21 00:14> - Studies Laboratory Data (last 24 hrs) 12/12/21 23:12: WBC 9.10, Hgb 8.2 L, Hct 25.0 L, Plt Count 192 12/12/21 21:05: PT 12.2, INR 1.11 12/12/21 21:05: Sodium 140, Potassium 3.0 L, BUN 9, Creatinine 0.43 L, Glucose 111 H, Magnesium 1.7 L, Total Bilirubin 0.3, AST 12 L, ALT 12, Alkaline Phosphatase 109, Lipase 64 L <Pantera Garay - Last Filed: 12/13/21 16:30> Assessment and Plan - Plan Assessment: RLE foot wound/cellulitis Frequent falls COPD on home 02 Hypokalemia Alcohol use disorder Macrocytic anemia Tobacco abuse 10mm spiculated nodule RUL incidental finding on CT Plan: RLE foot wound/cellulitis: 0/4 SIRS criteria met at this time, continue abx- ancef. Surgery consulted to help determine if patient may benefit with debridement. Frequent falls: Obtain orthostatic vitals, PT consult, fall precautions. COPD on home 02: Stable, no exacerbation. PRN nebs. Continue home meds. Hypokalemia: Replaced in ED, protocol in place. Alcohol use disorder: Reports last drink one weeks ago, monitor for signs of withdrawal. Macrocytic anemia: Folate/b12/ayaka labs ordered for AM, Guiac negative in ED. Tobacco abuse: Counseled on need for cessation, declined nicoderm patch 10mm spiculated nodule RUL incidental finding on CT: Explained to patient importance of repeat CT in 6 months, given copy of report. Pt verbalized understanding. DVT PPX: Lovenox Code status: Full Discharge Plan: Home Plan to discharge in: 72 Hours - Advance Directives Does patient have a Living Will: No Does patient have a Durable POA for Healthcare: No - Code Status/Comfort Care Code Status Assessed: Yes (Full code) Critical Care: No Time Spent Managing Pts Care (In Minutes): 70 <Enrico López - Last Filed: 12/13/21 00:14> Physician Review: Patient Assessed, Agree with Above Assessment and Plan <Pantera Garay - Last Filed: 12/13/21 16:30>
[2021-12-13] MEDS ORDERED: ALBUTEROL 2.5 MG/3 ML NEB SOL NEB PRN (01:35)
[2021-12-13] MEDS ORDERED: ONDANSETRON 4 MG/2 ML VIAL IV PRN (01:35)
[2021-12-13] MEDS ORDERED: IPRATROPIUM BROM 0.5MG/2.5ML NEB PRN (01:35)
[2021-12-13 02:41] VITALS: BMI 18.5
[2021-12-13] MEDS: NA CHLORIDE 0.9% 500 ML IV ONE (03:55)
[2021-12-13] MEDS: HYDROCODONE/APAP 5/325 MG TAB PO PRN ×3 (04:09→20:56)
[2021-12-13] MEDS: CEFAZOLIN 1 GM in NA CHLORIDE 0.9% 50 ML IVPB SCH ×3 (05:33→18:00)
[2021-12-13 06:55] LABS: Albumin 1.9 g/dL (3.4-5.0); Bilirubin Total 0.3 mg/dL (0.2-1.0); Protein, Total 4.8 g/dL (6.4-8.2)
[2021-12-13 07:22] LABS: Absolute Lymphocytes (CBC) 1.2 K/uL (0.7-4.9); Hematocrit 23.1 % (36.0-45.0); Lymphocytes % 17.1 % (15.3-44.8); MCV 107.6 fL (80-100); MPV 7.6 fL (7.6-11.3); RBC Red Blood Cell Count 2.15 M/uL (3.86-4.86)
[2021-12-13 07:34] LABS: Ferritin 242.2 ng/mL (8-388); Thyroid Stimulating Hormone 0.75 uIU/mL (0.360-3.740)
[2021-12-13] MEDS: FOLIC ACID 1 MG TABLET PO SCH (08:54)
[2021-12-13] MEDS: THIAMINE HCL 100 MG TABLET PO SCH (08:54)
[2021-12-13] MEDS: ENOXAPARIN 40 MG/0.4 ML SQ SCH (08:54)
[2021-12-13] MEDS ORDERED: MAGNESIUM SULFATE 1 gm IVPB 1 GM/100 ML BAG IV ONE (09:00)
--- NOTE | 2021-12-13 09:19 | EKG ---
Test Date: 2021-12-12 Test Time: 21:32:55 Reference Test Clerk: LEÓN MEASUREMENT RESULTS: Intervals: Rate: 73 VT: 152 QRSD: 78 QT: 402 QTc: 442 [place]: P: 72 VT: 152 QRS: 60 T: 45 INTERPRETIVE STATEMENTS: Normal sinus rhythm Normal ECG Compared to ECG 06/24/2010 09:17:54 Myocardial infarct finding no longer present Electronically Signed On 12-13-21 09:18:33 CDT by Farhat Xiong
--- NOTE | 2021-12-13 14:59 | P.CNS ---
Date of Consult: 12/13/21 PC: I was asked to see this 71-year-old female in regards to multiple wounds of her lower legs. HPC: This patient has been having issues at home with falls. On this last occasion she got up out of her chair, grab her walker, and after a few steps came down after the walker caught on the carpet in her home. She sustained numerous lacerations. No loss of consciousness. But says she sometimes just feels weak. PSHx: NAD PMHx: : COPD on home 02 -: HTN -: Depression -: ETOH use disorder -: Tobacco abuse -: CAD -: Left knee -: Hysterectomy Social Hx: No known allergies Sys R: Says apart from her legs she is actually fine, just has felt weak over the last few weeks. O/E: Awake alert vital signs are stable HEENT: Within normal limits Chest: Chest movement is equal bilaterally Abd: NAD [place]: Patient has bruises over arms but no open wounds. When examining both her legs she has numerous lacerations and tears that have been trying to heal themselves at home. Some of these could do contain some hematoma some of the skin is actually open but there is nothing that it requires operating or surgical debridement at the moment. Impression: This patient has the obvious stigmata of someone who has been following at home. She most recently went over her walker and sustained numerous lacerations to her legs. They are open, not infected, and will most likely heal. Plan: Conservative management of patient's legs were now. They do not require OR debridement or intervention. Will most likely stabilize these wounds and have her followed in the wound care center.
[2021-12-13] MEDS ORDERED: DEXTROSE 10%-WATER 500 ML IV ONE (15:57)
[2021-12-14] MEDS: CEFAZOLIN 1 GM in NA CHLORIDE 0.9% 50 ML IVPB SCH ×3 (00:14→16:59)
[2021-12-14 06:26] LABS: Absolute Lymphocytes (CBC) 1.5 K/uL (0.7-4.9); Hematocrit 25.3 % (36.0-45.0); Lymphocytes % 26.6 % (15.3-44.8); MCV 107.4 fL (80-100); MPV 7.8 fL (7.6-11.3); RBC Red Blood Cell Count 2.35 M/uL (3.86-4.86)
[2021-12-14] MEDS: HYDROCODONE/APAP 5/325 MG TAB PO PRN ×3 (06:27→20:31)
[2021-12-14 06:42] LABS: ALT/SGPT 11 U/L (12-78); AST/SGOT 13 U/L (15-37); Alkaline Phosphatase 118 U/L (45-117); Bicarbonate 31 mmol/L (21-32); Bilirubin Total 0.4 mg/dL (0.2-1.0); Glomerular Filtration Rate 111 ml/min (=/>90); Glucose Level 94 mg/dL (74-106); Magnesium 2.1 mg/dL (1.8-2.4); Potassium 4.1 mmol/L (3.5-5.1); Protein, Total 5.1 g/dL (6.4-8.2); Sodium Level 139 mmol/L (136-145)
[2021-12-14 06:45] LABS: BUN Blood Urea Nitrogen < 3 mg/dL (7-18)
[2021-12-14] MEDS: FOLIC ACID 1 MG TABLET PO SCH (08:59)
[2021-12-14] MEDS: THIAMINE HCL 100 MG TABLET PO SCH (08:59)
[2021-12-14] MEDS: ENOXAPARIN 40 MG/0.4 ML SQ SCH (09:00)
[2021-12-14 14:01] LABS: Specific Gravity 1.025 (1.005-1.030); Urine Bilirubin NEGATIVE (Negative); Urine Blood 1+ (Negative); Urine Clarity Clear (Clear); Urine Color Yellow (Yellow); Urine Glucose NEGATIVE (Negative); Urine Mucus Slight /HPF (None Seen); Urine Protein TRACE (Negative); Urine Urobilinogen Normal (Normal)
--- NOTE | 2021-12-14 17:22 | P.PN ---
Subjective Date of Service: 12/14/21 Primary Care Provider: Ruslan BEY [facility] Chief Complaint: RLE cellulitis, falls No acute events overnight. Surgery decided that debridement was not necessary at this time. She reports generalized weakness. Review of Systems 10-point ROS is otherwise unremarkable General: Weakness (generalized) Integumentary: Bruising (bilateral upper and lower extremities), Other (multiple lacerations and skin wounds) Physical Examination - Vital Signs Temperature: 98.7 F Blood Pressure: 101/63 Pulse: 85 Respirations: 16 Pulse Ox (%): 100 - Physical Exam General: Alert, In no apparent distress, Oriented x3 HEENT: Atraumatic, PERRLA, Mucous membr. moist/pink, EOMI, Sclerae nonicteric Neck: Supple, JVD not distended Respiratory: Clear to auscultation bilaterally, Normal air movement Cardiovascular: No edema, Regular rate/rhythm, Normal S1 S2, No gallops, No rubs, No murmurs Gastrointestinal: Normal bowel sounds, Soft and benign, Non-distended, No tenderness, No rebound, No guarding Musculoskeletal: No clubbing Integumentary: Skin breakdown (multiple lacerations on lower extremities are with purulence and surrounding erythema), Skin lesion, Tenderness/swelling Assessment And Plan - Plan # Right Lower Extremity Foot Wound with Cellulitis - Not currently meeting SIRS criteria - General Surgery consulted and spoke with Dr. Woods - recommends against debridement at this time - Continue cefazolin # Generalized Deconditioning complicated by Recurrent Falls - PT consulted - recommendations appreciated # Tobacco Use Disorder # Alcohol Use Disorder - last alcoholic beverage ~ 1 week ago # Right Upper Lobe Spiculated Nodule - Discussed potential of malignancy based on CT chest findings. Emphasized importance of following this lesion up with her PCP following discharge. She verbalized understanding. - Monitor for signs of alcohol withdrawal syndrome - Tobacco cessation counseling provided # Chronic Respiratory Failure due to Chronic Obstructive Pulmonary Disease on Home Oxygen - No evidence of exacerbation. - Encouraged incentive spirometry Pantera Garay M.D.
[2021-12-14] MEDS: NICOTINE 14 MG/PAT TD SCH (20:32)
[2021-12-15] MEDS: CEFAZOLIN 1 GM in NA CHLORIDE 0.9% 50 ML IVPB SCH ×4 (00:12→23:52)
[2021-12-15 04:09] LABS: Absolute Lymphocytes (CBC) 1.7 K/uL (0.7-4.9); Hematocrit 24.2 % (36.0-45.0); Lymphocytes % 29.6 % (15.3-44.8); MPV 7.5 fL (7.6-11.3); RBC Red Blood Cell Count 2.24 M/uL (3.86-4.86)
[2021-12-15 04:20] LABS: MCV 107.7 fL (80-100)
[2021-12-15 04:39] LABS: AST/SGOT 14 U/L (15-37); Albumin 1.9 g/dL (3.4-5.0); Alkaline Phosphatase 110 U/L (45-117); BUN Blood Urea Nitrogen 3 mg/dL (7-18); Bicarbonate 32 mmol/L (21-32); Bilirubin Total 0.4 mg/dL (0.2-1.0); Glomerular Filtration Rate 108 ml/min (=/>90); Glucose Level 97 mg/dL (74-106); Potassium 4.2 mmol/L (3.5-5.1); Sodium Level 136 mmol/L (136-145)
[2021-12-15 04:42] LABS: ALT/SGPT < 10 U/L (12-78)
[2021-12-15] MEDS: HYDROCODONE/APAP 5/325 MG TAB PO PRN ×2 (05:24→20:27)
[2021-12-15] MEDS: FOLIC ACID 1 MG TABLET PO SCH (08:45)
[2021-12-15] MEDS: THIAMINE HCL 100 MG TABLET PO SCH (08:45)
[2021-12-15] MEDS: ENOXAPARIN 40 MG/0.4 ML SQ SCH (08:45)
[2021-12-15] MEDS: NICOTINE 14 MG/PAT TD SCH (08:46)
--- NOTE | 2021-12-15 11:08 | P.PN ---
Subjective Date of Service: 12/15/21 Primary Care Provider: Ruslan BEY [facility] Chief Complaint: RLE cellulitis, falls Subjective: No new changes, Improving daughter verbalized concerns about possible vasculopathy of the lower extremities. Physical Examination - Vital Signs Temperature: 97.1 F Blood Pressure: 95/59 Pulse: 89 Respirations: 16 Pulse Ox (%): 100 - Physical Exam General: Alert, Oriented x3 HEENT: Atraumatic, Normocephalic Neck: Supple Respiratory: Normal air movement Cardiovascular: Normal pulses, Regular rate/rhythm Gastrointestinal: Soft and benign Musculoskeletal: Erythema, Tenderness Integumentary: Skin breakdown Neurological: Normal speech, Normal strength at 5/5 x4 extr - Studies Microbiology Data (last 24 hrs): 12/12/21 23:55 Clean Catch Urine [place] Count - Final <10,000 CFU/ML. 12/12/21 23:55 Clean Catch Urine - Final Assessment And Plan - Plan Assessment And Plan - Plan # Right Lower Extremity Foot Wound with Cellulitis No need for surgical interventions. - Continue cefazolin and general supportive measures. # Generalized Deconditioning complicated by Recurrent Falls - PT consulted - recommendations appreciated. # Tobacco Use Disorder # Alcohol Use Disorder # Right Upper Lobe Spiculated Nodule - Discussed potential of malignancy based on CT chest findings. Emphasized importance of following this lesion up with her PCP following discharge. She verbalized understanding. - Monitor for signs of alcohol withdrawal syndrome - Tobacco cessation counseling provided. # Chronic Respiratory Failure due to Chronic Obstructive Pulmonary Disease on Home Oxygen - No evidence of exacerbation. - Encouraged incentive spirometry. Supsected vasculopathy. We will follow plans for arterial doppler US for eval of vascular supply. Physician Review: Patient Assessed, Agree with Above Assessment and Plan
[2021-12-16] MEDS: HYDROCODONE/APAP 5/325 MG TAB PO PRN ×4 (06:22→22:21)
[2021-12-16 06:27] LABS: Absolute Lymphocytes (CBC) 1.2 K/uL (0.7-4.9); Hematocrit 22.4 % (36.0-45.0); Lymphocytes % 25.1 % (15.3-44.8); MPV 7.2 fL (7.6-11.3); RBC Red Blood Cell Count 2.08 M/uL (3.86-4.86)
[2021-12-16 06:33] LABS: MCV 107.6 fL (80-100)
[2021-12-16 06:51] LABS: AST/SGOT 13 U/L (15-37); Albumin 1.8 g/dL (3.4-5.0); Alkaline Phosphatase 111 U/L (45-117); BUN Blood Urea Nitrogen 5 mg/dL (7-18); Bicarbonate 33 mmol/L (21-32); Bilirubin Total 0.3 mg/dL (0.2-1.0); Glomerular Filtration Rate 102 ml/min (=/>90); Glucose Level 107 mg/dL (74-106); Potassium 4.1 mmol/L (3.5-5.1); Protein, Total 4.8 g/dL (6.4-8.2); Sodium Level 137 mmol/L (136-145)
[2021-12-16 06:56] LABS: ALT/SGPT < 10 U/L (12-78)
[2021-12-16] MEDS: ENOXAPARIN 40 MG/0.4 ML SQ SCH (08:01)
[2021-12-16] MEDS: CEFAZOLIN 1 GM in NA CHLORIDE 0.9% 50 ML IVPB SCH ×3 (08:01→23:48)
[2021-12-16] MEDS: THIAMINE HCL 100 MG TABLET PO SCH (08:02)
[2021-12-16] MEDS: FOLIC ACID 1 MG TABLET PO SCH (08:02)
[2021-12-16] MEDS: NICOTINE 14 MG/PAT TD SCH (08:02)
[2021-12-16] MEDS ORDERED: DEXTROSE 10%-WATER 0 ML IV ONE (08:24)
--- NOTE | 2021-12-16 16:24 | RAD REPORT ---
EXAM DESCRIPTION: US - Lower Extremity Arterial Bilat - 12/16/2021 3:20 pm CLINICAL HISTORY: Leg pain COMPARISON: None FINDINGS: Color Doppler, grayscale, and spectral analysis was performed. Right lower extremity: Elevated velocities present in the right common femoral artery with max peak systolic velocity of 226 cm/s. Triphasic flow is present, however. Triphasic flow is present within the SFA and popliteal art eries. Monophasic flow is present within the posterior tibial and dorsalis pedis arteries. Left lower extremity: Triphasic flow is present within the common femoral artery, SFA, popliteal artery, dorsalis pedis art rosie, and posterior tibial artery. Normal velocities noted. IMPRESSION: Monophasic flow in the right lower extremity involving the posterior tibial and dorsalis pedis arteries. The remaining vessels in the right lower extremity and all of the interrogated arter ies in the left lower extremity have triphasic flow.
--- NOTE | 2021-12-16 17:49 | P.PN ---
Subjective Date of Service: 12/16/21 Primary Care Provider: Ruslan santos Chief Complaint: RLE cellulitis, falls Subjective: No new changes, Improving Physical Examination - Vital Signs Temperature: 98.6 F Blood Pressure: 139/64 Pulse: 84 Respirations: 16 Pulse Ox (%): 99 - Physical Exam General: Alert, Oriented x3 HEENT: Atraumatic, Normocephalic Neck: Supple Respiratory: Normal air movement Cardiovascular: Regular rate/rhythm, Normal S1 S2 Gastrointestinal: Soft and benign Musculoskeletal: Swelling, Erythema Integumentary: Rash(es) Neurological: Normal speech Assessment And Plan - Plan Assessment And Plan - Plan # Right Lower Extremity Foot Wound with Cellulitis No need for surgical interventions. - Continue cefazolin and general supportive measures. # Generalized Deconditioning complicated by Recurrent Falls - PT consulted - recommendations appreciated. # Tobacco Use Disorder # Alcohol Use Disorder # Right Upper Lobe Spiculated Nodule To follow up with PCP for routine surveillance monitoring of spiculated lung mass. # Chronic Respiratory Failure due to Chronic Obstructive Pulmonary Disease on Home Oxygen - No evidence of exacerbation. - Encouraged incentive spirometry. Supsected vasculopathy. We will follow plans for arterial doppler US for eval of vascular supply. To continue wound care for now. Physician Review: Patient Assessed, Agree with Above Assessment and Plan
[2021-12-17] MEDS: HYDROCODONE/APAP 5/325 MG TAB PO PRN ×3 (04:51→17:53)
[2021-12-17] MEDS: FOLIC ACID 1 MG TABLET PO SCH (10:03)
[2021-12-17] MEDS: THIAMINE HCL 100 MG TABLET PO SCH (10:03)
[2021-12-17] MEDS: NICOTINE 14 MG/PAT TD SCH (10:04)
[2021-12-17] MEDS: CEFAZOLIN 1 GM in NA CHLORIDE 0.9% 50 ML IVPB SCH ×2 (10:04→17:53)
[2021-12-17] MEDS: ENOXAPARIN 40 MG/0.4 ML SQ SCH (10:04)
[2021-12-17] MEDS ORDERED: NA CHLORIDE 0.9% 250 ML ONE ×2 (11:34→19:56)
[2021-12-17] MEDS ORDERED: ALBUTEROL 2.5 MG/3 ML NEB SOL NEB PRN (12:00)
[2021-12-17] MEDS ORDERED: FUROSEMIDE 20 MG/ 2ML VIAL IV SCH (13:00)
--- NOTE | 2021-12-17 20:07 | RAD REPORT ---
EXAM DESCRIPTION: US - UPPER EXTREMITY VENOUS UNILATE - 12/17/2021 7:51 pm CLINICAL HISTORY: swollen arm (elbow) Arm swelling COMPARISON: <Comparisons> FINDINGS: Left upper extremity venous system was interrogated with Doppler technique. Normal flow, c ompressibility and augmentation was noted. There is no DVT present. IMPRESSION: No evidence of left upper extremity deep venous thrombosis.
[2021-12-17] MEDS: MORPHINE 2 MG/ML SYR IV PRN (22:34)
[2021-12-18] MEDS: CEFAZOLIN 1 GM in NA CHLORIDE 0.9% 50 ML IVPB SCH ×3 (00:25→15:51)
[2021-12-18] MEDS: HYDROCODONE/APAP 5/325 MG TAB PO PRN ×3 (01:44→19:28)
[2021-12-18] MEDS: MORPHINE 2 MG/ML SYR IV PRN ×3 (06:36→22:17)
[2021-12-18 07:51] LABS: Absolute Lymphocytes (CBC) 1.6 K/uL (0.7-4.9); Hematocrit 38.7 % (36.0-45.0); Lymphocytes % 22.4 % (15.3-44.8); MPV 7.3 fL (7.6-11.3); RBC Red Blood Cell Count 4.03 M/uL (3.86-4.86)
[2021-12-18] MEDS: THIAMINE HCL 100 MG TABLET PO SCH (08:07)
[2021-12-18] MEDS: FOLIC ACID 1 MG TABLET PO SCH (08:08)
[2021-12-18] MEDS: ENOXAPARIN 40 MG/0.4 ML SQ SCH (08:08)
[2021-12-18] MEDS: NICOTINE 14 MG/PAT TD SCH (08:09)
--- NOTE | 2021-12-18 16:10 | P.PN ---
Subjective Date of Service: 12/17/21 Subjective: No new changes, No C/O voiced, Improving Review of Systems 10-point ROS is otherwise unremarkable Physical Examination - Vital Signs Temperature: 97.5 F Blood Pressure: 140/64 Pulse: 78 Respirations: 21 Pulse Ox (%): 95 - Physical Exam General: Alert, In no apparent distress HEENT: Atraumatic, PERRLA, EOMI Neck: Supple, JVD not distended Respiratory: Clear to auscultation bilaterally, Normal air movement Cardiovascular: Regular rate/rhythm, Normal S1 S2 Gastrointestinal: Normal bowel sounds, No tenderness Musculoskeletal: No tenderness Integumentary: Skin breakdown, Skin lesion, Arterial ulcer Neurological: Normal speech, Normal tone, Normal affect Lymphatics: No axilla or inguinal lymphadenopathy - Studies Medications List Reviewed: Yes Assessment & Plan - Problems (Diagnosis) (1) Tobacco abuse Current Visit: Yes Status: Acute (2) PAD (peripheral artery disease) Current Visit: Yes Status: Acute (3) Wound of skin Current Visit: Yes Status: Acute - Plan PLAN: 1. antibiotics 2. Cardiology consult 3. antiplatelet therapy 4. statin 5. wound care - Advance Directives Does patient have a Living Will: No Does patient have a Durable POA for Healthcare: Yes Physician Review: Patient Assessed, Agree with Above Assessment and Plan
--- NOTE | 2021-12-18 16:11 | P.PN ---
Date of Service: 12/19/21 Subjective Subjective: MADE ARRANGEMENT FOR SWING BED PLACEMENT; HOWEVER, CARDIOLOGY WANTS TO DO ARTERIOGRAM ON WEDNESDAY. DISCHARGE HELD OVER THE WEEKEND. Review of Systems 10-point ROS is otherwise unremarkable Physical Examination - Vital Signs reviewed - Physical Exam General: Alert, In no apparent distress Respiratory: Clear to auscultation bilaterally, Normal air movement Cardiovascular: Regular rate/rhythm, Normal S1 S2 Gastrointestinal: Normal bowel sounds, No tenderness Integumentary: Skin breakdown, Skin lesion, Arterial ulcer Neurological: No focal deficits Assessment & Plan - Problems (Diagnosis) (1) Tobacco abuse Current Visit: Yes Status: Acute (2) PAD (peripheral artery disease) Current Visit: Yes Status: Acute (3) Wound of skin Current Visit: Yes Status: Acute (4) COPD Current Visit: Yes Status: Chronic (5) HTN Current Visit: Yes Status: Chronic (6) Alcohol abuse Current Visit: Yes Status: Acute - Plan Continue with POC as mentioned below 1. Continue with antibiotics 2. Cardiology consult appreciated 3. Antiplatelet, statin therapy 4. Counselled regarding tobacco and alcohol cessation 5. Wound care - Advance Directives Does patient have a Living Will: No Does patient have a Durable POA for Healthcare: Yes Physician Review: Patient Assessed, Agree with Above Assessment and Plan
--- NOTE | 2021-12-18 21:33 | CON ---
Date of Consultation: 12/18/2021 Reason For Consultation: Peripheral vascular disease. History Of Present Illness: A 71-year-old female with history of COPD, on home oxygen, hypertension, depression, coronary artery disease status post cardiac stents, presented after a fall and she has m ultiple wounds of both lower extremities that are not healing. She denies history of diabetes, but s he has been a chronic smoker for a long time. Past Medical History: As outlined above in the HPI. Medications: Refer reconciliation sheet for detailed list. Allergies: NO KNOWN DRUG ALLERGIES. Family History: No premature coronary artery disease or cancer. Social History: She is an active smoker and drinker. Does not use any drugs. Review of Systems: All systems reviewed and are negative except as mentioned in HPI. Physical Examination: Vital Signs: Reviewed. Head and Neck: Pupils are equal, reactive to light. Intact eye movements. No JVD. No cervical lym phadenopathy. Neck: Supple. Thyroid is not enlarged. Lungs: Clear to auscultation bilaterally. No rhonchi, wheezing, crackles. No accessory muscle use. Heart: Regular rate and rhythm. No extra sounds. Abdomen: Soft, nontender. Bowel sounds positive. No organomegaly. No masses or hernia. No rigidi ty or rebound. Extremities: There is mild edema bilaterally with decreased pulses in both feet and multiple ulcers that are getting wound care involving the leg and the feet on both sides. Neurologic: Alert, awake, oriented x3. No acute focal deficits appreciated. Lymph Nodes: No cervical or axillary adenopathy. Investigations: Creatinine 0.48. Hemoglobin is 12.8, white blood cell count is 7.1. Assessment And Recommendations: 1.Peripheral vascular disease by arterial Doppler. She has a monophasic waveform all the way below the knee. She will benefit from a peripheral angiogram; however, we will plan on doing it either argenis orrow or early next week based on the scheduling availability. 2.Coronary artery disease. No chest pain. Continue home medications. 3.Smoker. She was counseled against smoking in details. SR/MODL Voice ID: [id number] Report ID: [id number]
[2021-12-19] MEDS: CEFAZOLIN 1 GM in NA CHLORIDE 0.9% 50 ML IVPB SCH ×3 (01:40→17:03)
[2021-12-19] MEDS: HYDROCODONE/APAP 5/325 MG TAB PO PRN ×3 (01:40→22:55)
[2021-12-19] MEDS: FOLIC ACID 1 MG TABLET PO SCH (08:08)
[2021-12-19] MEDS: THIAMINE HCL 100 MG TABLET PO SCH (08:08)
[2021-12-19] MEDS: ENOXAPARIN 40 MG/0.4 ML SQ SCH (08:09)
[2021-12-19] MEDS: MEDIHONEY 44 ML TOPICAL TUBE TOP SCH (08:11)
[2021-12-19] MEDS: NICOTINE 14 MG/PAT TD SCH (08:12)
[2021-12-19] MEDS: MORPHINE 2 MG/ML SYR IV PRN ×3 (08:13→20:52)
--- NOTE | 2021-12-19 08:48 | P.PN ---
Date of Service: 12/18/21 Subjective Well with no new complaints. Wound care saw the patient. Spoke with surgery and they recommended to continue with collagenase for debridement. Patient going to swing bed once accepted. Hemoglobin is stable. Review of Systems 10-point ROS is otherwise unremarkable Physical Examination - Vital Signs reviewed - Physical Exam General: Alert, In no apparent distress Respiratory: Clear to auscultation bilaterally, Normal air movement Cardiovascular: Regular rate/rhythm, Normal S1 S2 Gastrointestinal: Normal bowel sounds, No tenderness Musculoskeletal: No tenderness Integumentary: Skin breakdown, Skin lesion, Arterial ulcer Neurological: Normal speech, Normal tone, Normal affect Assessment & Plan - Problems (Diagnosis) (1) Tobacco abuse Current Visit: Yes Status: Acute (2) PAD (peripheral artery disease) Current Visit: Yes Status: Acute (3) Wound of skin Current Visit: Yes Status: Acute (4) anemia of chronic disease Current Visit: Yes Status: Acute - Plan Continue with POC as mentioned below 1. antibiotics 2. Cardiology consult 3. antiplatelet therapy; monitor H&H 4. statin 5. wound care 6. Transfer to swing bed once accepted - Advance Directives Does patient have a Living Will: No Does patient have a Durable POA for Healthcare: Yes Physician Review: Patient Assessed, Agree with Above Assessment and Plan
[2021-12-19] MEDS ORDERED: ALBUMIN HUMAN 25% 100 ML IV ONE (18:48)
[2021-12-19] MEDS: GABAPENTIN 100 MG CAP PO SCH (20:49)
[2021-12-19] MEDS: METOPROLOL TAR 25 MG TAB PO SCH (20:49)
[2021-12-19] MEDS: BUSPIRONE HCL 5 MG TABLET PO SCH (20:50)
--- NOTE | 2021-12-19 23:22 | PN ---
Date of Progress Note: 12/19/2021 Subjective: Seen at bedside, clinically doing better. Does not have any chest pain, shortness of br eath, orthopnea, or cough. No nausea, vomiting, or diarrhea. All other systems reviewed and are neg ative. Objective: Vital Signs: Reviewed. Head And Neck: Pupils are equally reactive to light. Intact eye movements. No JVD. No cervical ly mphadenopathy. Neck: Supple. Thyroid is not enlarged. Lungs: Clear to auscultation with decreased breathing sounds bilaterally. No accessory muscle use o r muscle retraction. Heart: Irregular. No extra sounds. Abdomen: Soft, nontender. Bowel sounds positive. No organomegaly. No masses or hernia. No rigidi ty or rebound. Extremities: Multiple ulcers with decreased pulses bilaterally. Neurologic: Alert, awake, and oriented x3. No acute focal deficits appreciated. Lymph Nodes: No cervical or axillary lymphadenopathy. Investigations: Labs were reviewed. Assessment And Recommendations: 1.Peripheral vascular disease, appears to be significant. Plan for peripheral angiogram on her on . 2.Multiple infected ulcers of both legs, on antibiotics. Continue current management and plan for a ngiogram on Wednesday and to start the patient on aspirin 81 mg for now and further plan our recommendat ion based on the results of the angiogram. /ELLIOTL Voice ID: [id number] Report ID: [id number]
[2021-12-20] MEDS: CEFAZOLIN 1 GM in NA CHLORIDE 0.9% 50 ML IVPB SCH ×3 (00:44→17:58)
[2021-12-20] MEDS ORDERED: NA CHLORIDE 0.9% 250 ML ONE (00:47)
[2021-12-20] MEDS: MORPHINE 2 MG/ML SYR IV PRN ×2 (03:23→10:44)
[2021-12-20] MEDS: PANTOPRAZOLE 40MG TABLET PO SCH (08:44)
[2021-12-20] MEDS: ASPIRIN EC 81 MG TAB PO SCH (08:44)
[2021-12-20] MEDS: FOLIC ACID 1 MG TABLET PO SCH (08:45)
[2021-12-20] MEDS: THIAMINE HCL 100 MG TABLET PO SCH (08:45)
[2021-12-20] MEDS: DULOXETINE 30 MG CAP PO SCH (08:45)
[2021-12-20] MEDS: AMLODIPINE 5 MG TAB PO SCH (08:45)
[2021-12-20] MEDS: CITALOPRAM 10 MG TABLET PO SCH (08:45)
[2021-12-20] MEDS: BUSPIRONE HCL 5 MG TABLET PO SCH ×2 (08:45→21:46)
[2021-12-20] MEDS: GABAPENTIN 100 MG CAP PO SCH ×3 (08:45→21:46)
[2021-12-20] MEDS: MONTELUKAST 10 MG TAB PO SCH (08:46)
[2021-12-20] MEDS: METOPROLOL TAR 25 MG TAB PO SCH ×2 (08:46→21:46)
[2021-12-20] MEDS: ATORVASTATIN 10 MG TAB PO SCH (08:46)
[2021-12-20] MEDS: NICOTINE 14 MG/PAT TD SCH (08:47)
[2021-12-20] MEDS: HYDROCODONE/APAP 5/325 MG TAB PO PRN ×3 (08:50→21:47)
[2021-12-20] MEDS: ENOXAPARIN 40 MG/0.4 ML SQ SCH (08:51)
[2021-12-20] MEDS: MEDIHONEY 44 ML TOPICAL TUBE TOP SCH (08:51)
[2021-12-20] MEDS ORDERED: ASPIRIN 81 MG CHEWABLE TABLET PO SCH (09:00)
--- NOTE | 2021-12-20 14:37 | PN ---
Date of Progress Note: 12/20/2021 Subjective: Seen by bedside. No new complaints. Review of Systems: No chest pain, shortness of breath, orthopnea, cough. No nausea, vomiting, diarrhea. No abdominal p ain. All other systems reviewed and they were negative. Physical Examination: Vital Signs: Reviewed. Head and Neck: Pupils are equal, reactive to light. Intact eye movements. No JVD. No cervical lym phadenopathy. Neck is supple. Thyroid is not enlarged. Lungs: Clear to auscultation bilaterally. No rhonchi, wheezing, or crackles. No accessory muscle u se. Heart: Irregular. No extra sounds. Abdomen: Soft, nontender. Bowel sounds positive. No organomegaly. No masses or hernia. No rigidi ty or rebound. Extremities: She has multiple ulcers and lower extremity edema with decreased pulses. Skin: No rash. Neurologic: Alert, awake, oriented x3. No acute focal deficits appreciated. Investigations: Labs were reviewed. Creatinine is normal. Assessment And Recommendations: 1.Peripheral vascular disease with nonhealing ulcers. Plan for peripheral angiogram on Wednesday. 2.Infected ulcers of both legs. Continue antibiotics and angiogram as outlined above on Wednesday. SR/MODL Voice ID: [id number] Report ID: [id number]
[2021-12-21] MEDS: CEFAZOLIN 1 GM in NA CHLORIDE 0.9% 50 ML IVPB SCH ×3 (00:32→16:07)
[2021-12-21] MEDS: NA CHLORIDE 0.9% 500 ML IV ONE (00:33)
[2021-12-21] MEDS ORDERED: NA CHLORIDE 0.9% 500 ML ONE (00:36)
[2021-12-21 06:34] LABS: Absolute Lymphocytes (CBC) 1.4 K/uL (0.7-4.9); Hematocrit 34.8 % (36.0-45.0); Lymphocytes % 27.3 % (15.3-44.8); MCV 97.5 fL (80-100); MPV 7.9 fL (7.6-11.3); RBC Red Blood Cell Count 3.57 M/uL (3.86-4.86)
[2021-12-21 06:41] LABS: Protime INR 1.12
[2021-12-21 06:53] LABS: Phosphorus 3.9 mg/dL (2.5-4.9); Potassium 3.7 mmol/L (3.5-5.1)
[2021-12-21] MEDS ORDERED: POTASSIUM CL SA 10 MEQ TAB PO ONE (09:00)
[2021-12-21] MEDS: CITALOPRAM 10 MG TABLET PO SCH (09:28)
[2021-12-21] MEDS: ASPIRIN EC 81 MG TAB PO SCH (09:28)
[2021-12-21] MEDS: MONTELUKAST 10 MG TAB PO SCH (09:28)
[2021-12-21] MEDS: FOLIC ACID 1 MG TABLET PO SCH (09:28)
[2021-12-21] MEDS: DULOXETINE 30 MG CAP PO SCH (09:29)
[2021-12-21] MEDS: PANTOPRAZOLE 40MG TABLET PO SCH (09:29)
[2021-12-21] MEDS: GABAPENTIN 100 MG CAP PO SCH ×3 (09:29→21:25)
[2021-12-21] MEDS: BUSPIRONE HCL 5 MG TABLET PO SCH ×2 (09:29→21:25)
[2021-12-21] MEDS: METOPROLOL TAR 25 MG TAB PO SCH ×2 (09:29→21:25)
[2021-12-21] MEDS: AMLODIPINE 5 MG TAB PO SCH (09:30)
[2021-12-21] MEDS: NICOTINE 14 MG/PAT TD SCH (09:30)
[2021-12-21] MEDS: THIAMINE HCL 100 MG TABLET PO SCH (09:30)
[2021-12-21] MEDS: ATORVASTATIN 10 MG TAB PO SCH (09:30)
[2021-12-21] MEDS: ENOXAPARIN 40 MG/0.4 ML SQ SCH (09:31)
[2021-12-21] MEDS: MEDIHONEY 44 ML TOPICAL TUBE TOP SCH (09:31)
[2021-12-21] MEDS: HYDROCODONE/APAP 5/325 MG TAB PO PRN ×4 (09:43→22:08)
[2021-12-22] MEDS: CEFAZOLIN 1 GM in NA CHLORIDE 0.9% 50 ML IVPB SCH ×3 (00:49→16:13)
[2021-12-22] MEDS: HYDROCODONE/APAP 5/325 MG TAB PO PRN ×3 (02:16→10:49)
[2021-12-22] MEDS ORDERED: NA CHLORIDE 0.9% 1,000 ML IV SCH (07:00)
[2021-12-22] MEDS: BUSPIRONE HCL 5 MG TABLET PO SCH (09:00)
[2021-12-22] MEDS: GABAPENTIN 100 MG CAP PO SCH ×2 (09:00→14:00)
[2021-12-22] MEDS: DULOXETINE 30 MG CAP PO SCH (09:00)
[2021-12-22] MEDS: FOLIC ACID 1 MG TABLET PO SCH (09:00)
[2021-12-22] MEDS: CITALOPRAM 10 MG TABLET PO SCH (09:00)
[2021-12-22] MEDS: MONTELUKAST 10 MG TAB PO SCH (09:00)
[2021-12-22] MEDS: ASPIRIN EC 81 MG TAB PO SCH (09:00)
[2021-12-22] MEDS: ATORVASTATIN 10 MG TAB PO SCH (09:00)
[2021-12-22] MEDS: PANTOPRAZOLE 40MG TABLET PO SCH (09:00)
[2021-12-22] MEDS: THIAMINE HCL 100 MG TABLET PO SCH (09:00)
[2021-12-22] MEDS: AMLODIPINE 5 MG TAB PO SCH (09:00)
[2021-12-22] MEDS: METOPROLOL TAR 25 MG TAB PO SCH (09:00)
--- NOTE | 2021-12-22 10:35 | P.PN ---
Date of Service: 12/20/21 Subjective Subjective: Swing bed on hold. Will place on Wednesday after arteriogram of the lower extremity otherwise patient with no complaints. Would gently hydrate prior to arteriogram. Review of Systems 10-point ROS is otherwise unremarkable Physical Examination - Vital Signs reviewed - Physical Exam General: Alert, In no apparent distress Respiratory: Clear to auscultation bilaterally, Normal air movement Cardiovascular: Regular rate/rhythm, Normal S1 S2 Gastrointestinal: Normal bowel sounds, No tenderness Integumentary: Skin breakdown, Skin lesion, Arterial ulcer Neurological: No focal deficits Assessment & Plan - Problems (Diagnosis) (1) Tobacco abuse Current Visit: Yes Status: Acute (2) PAD (peripheral artery disease) Current Visit: Yes Status: Acute (3) Wound of skin Current Visit: Yes Status: Acute (4) COPD Current Visit: Yes Status: Chronic (5) HTN Current Visit: Yes Status: Chronic (6) Alcohol abuse Current Visit: Yes Status: Acute - Plan Continue with POC as mentioned below 1. Continue with antibiotics 2. Cardiology consult appreciated 3. Antiplatelet, statin therapy 4. Counselled regarding tobacco and alcohol cessation 5. Wound care 6. arteriogram on Wednesday and then patient will be discharged to swing the swing bed. - Advance Directives Does patient have a Living Will: No Does patient have a Durable POA for Healthcare: Yes Physician Review: Patient Assessed, Agree with Above Assessment and Plan
--- NOTE | 2021-12-22 10:38 | P.PN ---
Date of Service: 12/21/21 Subjective Subjective: Patient is clinically doing well. No complaints. Will gently hydrate her prior to the arteriogram just for renal protection. She is not really eating that well so will just give her 1 L at 50 cc an hour. After the arteriogram is performed she should be stable for discharge if okay with Cardiology. There are arrangements for [facility]. Otherwise hemodynamically she is stable. She will continue wound care and physical therapy at the [facility] where she has a niece who lives at [facility]. Review of Systems 10-point ROS is otherwise unremarkable Physical Examination - Vital Signs reviewed - Physical Exam General: Alert, In no apparent distress Respiratory: Clear to auscultation bilaterally, Normal air movement Cardiovascular: Regular rate/rhythm, Normal S1 S2 Gastrointestinal: Normal bowel sounds, No tenderness Integumentary: Skin breakdown, Skin lesion, Arterial ulcer Neurological: No focal deficits Assessment & Plan - Problems (Diagnosis) (1) Tobacco abuse Current Visit: Yes Status: Acute (2) PAD (peripheral artery disease) Current Visit: Yes Status: Acute (3) Wound of skin Current Visit: Yes Status: Acute (4) COPD Current Visit: Yes Status: Chronic (5) HTN Current Visit: Yes Status: Chronic (6) Alcohol abuse Current Visit: Yes Status: Acute - Plan Continue with POC as mentioned below 1. Continue with antibiotics 2. Cardiology consult appreciated 3. Antiplatelet, statin therapy 4. Counselled regarding tobacco and alcohol cessation 5. Wound care 6. Arteriogram Wednesday morning 7. Gentle hydration prior to arteriogram for renal protection 8. anticipate discharge to swing the swing bed after arteriogram completed and if no significant findings - Advance Directives Does patient have a Living Will: No Does patient have a Durable POA for Healthcare: Yes Physician Review: Patient Assessed, Agree with Above Assessment and Plan
[2021-12-22] MEDS ORDERED: NA CHLORIDE 0.9% 500 ML ONE (11:07)
[2021-12-22] MEDS ORDERED: NITROGLYCERIN 100 MCG/ML SYR (for cath lab use only) IV ONE (11:23)
[2021-12-22] MEDS ORDERED: VERAPAMIL HCL 10 MG/4 ML VIAL IV ONE (11:23)
[2021-12-22] MEDS ORDERED: ATROPINE SULF 1 MG/10 ML SYR IV ONE (11:23)
[2021-12-22] MEDS ORDERED: HEPARIN 10,000 UNIT/10 ML VIAL IV ONE (11:23)
[2021-12-22] MEDS ORDERED: HEPARIN 5000 UNIT/ML 1 ML VIAL ONE (11:23)
[2021-12-22] MEDS ORDERED: FENTANYL CITR 100 MCG/2 ML ONE (14:24)
[2021-12-22] MEDS ORDERED: MIDAZOLAM HCL 2 MG/2 ML INJ ONE (14:25)
[2021-12-22 15:17] VITALS: O2SAT 97
[2021-12-22] MEDS: NICOTINE 14 MG/PAT TD SCH (16:13)
--- NOTE | 2021-12-22 16:13 | P.DS ---
Admission Date: 12/13/21 Discharge Date: 12/22/21 Primary Care Provider: Ruslan santos Disposition: TRANSFER TO GROUP HOME Comment: [facility] Discharge Condition: FAIR Reason for Admission: RLE cellulitis, falls Consultations: 1. General Surgery 2. Cardiology Procedures: - 12/22/2021 - Abdominal Angiogram with Runoffs Hospital Course: DIAGNOSES: # Right Lower Extremity Foot Wound with Cellulitis (improving) # Generalized Deconditioning complicated by Recurrent Falls # Tobacco Use Disorder # Alcohol Use Disorder - last alcoholic beverage ~ 1 week ago # Right Upper Lobe Spiculated Nodule # Microscopic Hematuria # Chronic Respiratory Failure due to Chronic Obstructive Pulmonary Disease on Home Oxygen HOSPITAL COURSE: Ms. Kristin Lester is a 71 year old female with a past medical history significant for alcohol use disorder, chronic respiratory failure due to COPD, and tobacco use disorder who was admitted to the [facility] on 12/13/2021 for right lower extremity foot wound with cellulitis. She was admitted to the Medicine service. General Surgery was consulted for possible debridement. She was evaluated by Dr. Woods, who recommended against surgical management. To evaluate her vascular status, a bilateral Doppler ultrasound was obtained, which revealed, "monophasic flow in the right lower extremity involving the posterior tibial and dorsalis pedis arteries. The remaining vessels in the right lower extremity and all of the interrogated arteries in the left lower extremity have triphasic flow." Cardiology was consulted and Dr. Chino evaluated her. He obtained an angiogram with run-offs, which did not reveal evidence of severe peripheral artery disease. I discussed the possibility of a skin biopsy with Dr. Woods given that her wounds seem to be healing poorly. He stated that he can evaluate this as an outpatient as it seems less likely. Clinically, it seems that her wounds are caused by recurrent falls and trauma to her lower extremities complicated by her recurrently picking at her wounds. She was in agreement with this plan. I called and spoke with Dr. Monroe at [facility], and updated him on her hospital course. He agrees with the current plan of care and has generously accepted her for transfer. Of note, she was incidentally noted to have a right upper lobe spiculated nodule and microscopic hematuria. She was counseled that both of these findings may be consistent with underlying cancer and following up with her PCP (for the pulmonary nodule) and with Urology (for the microscopic hematuria) is essential. I advised her to schedule a repeat CT chest in 3 months and to schedule the Urology appointment as soon as possible. She verbalized understanding. On 12/22/2021, she was seen on rounds and deemed medically stable for transfer. She was given the opportunity to ask questions and reported no further questions. Furthermore, all questions were answered to the best of my ability. A copy of this discharge summary will be sent to the above providers to facilitate continuity of care. Today, I personally spent 40 minutes on her case, of which greater than 50% of the time was spent in patient education, counseling, and coordination of care as described above. - Physical Exam General: Alert, In no apparent distress, Oriented x3 HEENT: Atraumatic, PERRLA, Mucous membr. moist/pink, EOMI, Sclerae nonicteric Neck: Supple, JVD not distended Respiratory: Clear to auscultation bilaterally, Normal air movement Cardiovascular: No edema, Regular rate/rhythm, Normal S1 S2, No gallops, No rubs, No murmurs Gastrointestinal: Normal bowel sounds, Soft and benign, Non-distended, No tenderness, No rebound, No guarding Musculoskeletal: No clubbing Integumentary: lower extremity wounds are covered by clean dressing Vital Signs/Physical Exam: Temp Pulse Resp BP Pulse Ox 97.1 F 68 20 120/54 L 100 12/22/21 12:00 12/22/21 15:13 12/22/21 15:13 12/22/21 15:13 12/22/21 12:00 Laboratory Data at Discharge: WBC 5.20 K/uL (4.3-10.9) D 12/21/21 05:51 Hgb 11.4 g/dL (12.0-15.0) L 12/21/21 05:51 Hct 34.8 % (36.0-45.0) L 12/21/21 05:51 Plt Count 249 K/uL (152-406) 12/21/21 05:51 PT 12.4 SECONDS (9.5-12.5) 12/21/21 05:51 INR 1.12 12/21/21 05:51 APTT 37.2 SECONDS (24.3-36.9) H 12/21/21 05:51 Sodium 138 mmol/L (136-145) 12/21/21 05:51 Potassium 3.7 mmol/L (3.5-5.1) 12/21/21 05:51 BUN 6 mg/dL (7-18) L 12/21/21 05:51 Creatinine 0.36 mg/dL (0.55-1.3) L 12/21/21 05:51 Glucose 97 mg/dL (74-106) 12/21/21 05:51 Phosphorus 3.9 mg/dL (2.5-4.9) 12/21/21 05:51 Magnesium 2.0 mg/dL (1.8-2.4) 12/21/21 05:51 Total Bilirubin 0.3 mg/dL (0.2-1.0) 12/16/21 06:08 AST 13 U/L (15-37) L 12/16/21 06:08 ALT < 10 U/L (12-78) L 12/16/21 06:08 Alkaline Phosphatase 111 U/L (45-117) 12/16/21 06:08 Lipase 64 U/L (73-393) L 12/12/21 21:05 Home Medications: Amlodipine [Norvasc*] 5 mg PO DAILY 12/13/21 Aspirin [Aspirin EC] 81 mg PO DAILY 12/13/21 Atorvastatin Calcium 10 mg PO DAILY 12/13/21 Buspirone HCl 5 mg PO BID 12/13/21 Citalopram [Celexa*] 20 mg PO DAILY 12/13/21 Duloxetine HCl 30 mg PO DAILY 12/13/21 Folic Acid 1 mg PO DAILY 12/13/21 Gabapentin [Neurontin*] 100 mg PO TID 12/13/21 Metoprolol Tartrate 25 mg PO BID 12/13/21 Montelukast [Singulair*] 10 mg PO DAILY 12/13/21 Pantoprazole [Protonix Tab*] 40 mg PO DAILY 12/13/21 Albuterol Neb [Proventil 0.083% Neb Soln] 2.5 mg NEB [id number] PRN #60 amp 12/19/21 Enoxaparin Sodium [Lovenox 40 MG INJ*] 40 mg SQ DAILY syr 12/19/21 Hydrocodone 5/APAP 325 [Uledi 5/325*] 1 tab PO Q4H PRN #0 tab 12/19/21 Ipratropium Neb [Atrovent*] 0.5 mg NEB [id number] PRN #0 amp 12/19/21 Medihoney [Medihoney Woundcare Gel*] 1 appl TOP DAILY #0 tube 12/19/21 Minocycline HCl 100 mg PO BID #14 12/19/21 Smz./Tmp. [Bactrim Ds 800 MG/160 MG] 1 each PO DAILY #10 tab 12/19/21 Thiamine HCl [Vitamin B-1*] 50 mg PO DAILY #30 12/19/21 New Medications: Smz./Tmp. [Bactrim Ds 800 MG/160 MG] 1 each PO DAILY #10 tab Minocycline HCl 100 mg PO BID #14 Thiamine HCl [Vitamin B-1*] 50 mg PO DAILY #30 Physician Discharge Instructions: -DC IV and DC to [facility] bed -Follow-up with PCP in 1 to 2 weeks -Follow-up with Cardiology in 1 to 2 weeks -Follow-up with Surgery, Dr. Woods, in 1 to 2 weeks at wound healing -Please call Dr. Cisneros at [phone] if any questions regarding hospital stay -Please call nursing station at [phone] if any nursing or medication questions -Return to the emergency room if symptoms worsen Diet: AHA Activity: Fall precautions Followup: Loki Woods MD [ACTIVE - CAN ADMIT] - (Call to schedule appointment.) MERLINE KNUTSON [Primary Care Provider] - (Call to schedule appointment.) Abel Monroe MD [COURTESY - CAN ADMIT] - Time spent managing pt's care (in minutes): 40
[2021-12-22] MEDS: MEDIHONEY 44 ML TOPICAL TUBE TOP SCH (16:14)
[2021-12-22 16:26] VITALS: BP 151/96; TEMP 97.3
--- NOTE | 2021-12-22 20:43 | PN ---
Date of Progress Note: 12/22/2021 Subjective: Seen at bedside. The patient is being treated for multiple lower extremity ulcers with wound care; however, did peripheral angiogram and she does not have any significant peripheral vascul ar disease. No significant peripheral vascular disease was found. Review of Systems: No chest pain, shortness of breath, orthopnea, cough. No nausea, vomiting, or diarrhea. She has yousuf ateral lower extremities ulcers that are stable. All other systems reviewed are negative. Physical Examination: Vital Signs: Temperature is 97.1, pulse 65, breathing at 17, blood pressure is 108/59, saturating 10 0% on room air. General: Pleasant elderly female, in no apparent distress. Head and Neck: Pupils are equal, reactive to light. Intact eye movements. No JVD. No cervical lym phadenopathy. Neck: Supple. Thyroid is not enlarged. Lungs: Clear to auscultation with decreased breathing sounds. Heart: Regular. No extra sounds. Abdomen: Soft, nontender. Bowel sounds positive. No organomegaly. No masses or hernia. No rigidi ty or rebound. Extremities: Multiple ulcerations that showed improvement comparing to 2 days ago. Lymph Nodes: No cervical or axillary lymphadenopathy. Neurologic: Alert, awake, oriented x3. No acute focal deficits appreciated. Laboratory Data: Investigations: Sodium 138, BUN 6, creatinine 0.36, and hemoglobin is 11.4. Assessment And Plan: 1.Multiple nonhealing ulcers of lower extremities, status post peripheral angiogram that did not myrna w any significant peripheral vascular disease. As such, I recommend a skin biopsy of those ulcers to find the etiology but no peripheral vascular disease was found. 2.Hypertension. Blood pressure is controlled. SR/MODL Voice ID: [id number] Report ID: [id number]
--- NOTE | 2021-12-23 03:25 | OP ---
Date of Procedure: 12/22/2021 Surgeon: SHEN NEIL Procedure Performed: Peripheral angiogram, bilateral selective and distal aortogram with runoff. Indication: Multiple nonhealing ulcers with evidence by Doppler suggestive of peripheral vascular di sease. Access: Right femoral artery 6-[place], closed with 6[place] Angio-Seal. Complications: None. Bleeding: Less than 20 mL. Anesthesia: Total sedation time was 45 minutes. Description Of Procedure: After the risks, benefits, and alternatives were explained, the patient ag rachel to proceed and signed informed consent. The patient was brought into the cardiac catheterizatio n laboratory and prepped and draped in the usual sterile fashion. Then, we accessed the right femora l artery and using the micropuncture kit and ultrasound guidance, and fluoroscopy and placed a 6-Fren ch slender sheath. Then, I took an Omni Flush catheter out and placed it in the proximal left accounting intern al iliac artery and did selective angiogram of the left lower extremity, and then I placed the cathet er in the right common iliac artery and did a peripheral angiogram. Then, the Omni Flush was advance d all the way to the distal left SFA to check the flow below the knee, and then a catheter was placed in the distal aorta and I did limited also distal aortogram and proximal bilateral iliac arteries an giogram. I removed the catheter and the sheath, and I placed a 6-[place] Angio-Seal for closure with good hemostasis. Findings: 1.Distal aorta is widely patent. 2.The right common iliac and internal iliac arteries are patent and normal. 3.The left common iliac artery is normal. Left internal iliac artery has about 30% stenosis. 4.The right common femoral artery has 20% stenosis and the left common femoral artery is normal. 5.Bilateral profunda are patent. 6.Right SFA is widely patent with luminal irregularities, and the left SFA has distal diffuse 10% to 20% stenosis. 7.Below the knee on the right side including the anterior tibial, posterior tibial, and peroneal art eries are all patent. 8.Below the knee circulation on the left showing that anterior tibial and peroneal are both patent, and I could not see the posterior tibial very well; however, there was good collateral flow to the sa me area. Conclusion: Mild nonobstructive peripheral vascular disease. Recommendation: Medical management. SR/MODL Voice ID: [id number] Report ID: [id number]
== END 2021-12-22 19:29 | DRG 603 ==
LOC: ER 18:48 → ERHOLD 12-13 00:08 → 4TH 12-13 00:26
PROVIDERS: ADMIT Internal Medicine; ATTEND Internal Medicine
PROC: 30233N1 Transfusion of Nonautologous Red Blood Cells into Peripheral Vein, Percutaneous Approach (ICD-10-PCS; 2021-12-17)
PROC: B41D1ZZ Fluoroscopy of Aorta and Bilateral Lower Extremity Arteries using Low Osmolar Contrast (ICD-10-PCS; principal; 2021-12-22)
DX: L03.115 Cellulitis of right lower limb (principal); J96.10 Chronic respiratory failure, unspecified whether with hypoxia or hypercapnia; L97.929 Non-pressure chronic ulcer of unspecified part of left lower leg with unspecified severity; L97.919 Non-pressure chronic ulcer of unspecified part of right lower leg with unspecified severity; C34.11 Malignant neoplasm of upper lobe, right bronchus or lung; I10 Essential (primary) hypertension; J44.9 Chronic obstructive pulmonary disease, unspecified; I25.10 Atherosclerotic heart disease of native coronary artery without angina pectoris; E87.6 Hypokalemia; F10.10 Alcohol abuse, uncomplicated; D50.9 Iron deficiency anemia, unspecified; I73.9 Peripheral vascular disease, unspecified; D63.8 Anemia in other chronic diseases classified elsewhere; E83.42 Hypomagnesemia; F17.210 Nicotine dependence, cigarettes, uncomplicated; S91.311A Laceration without foreign body, right foot, initial encounter; S81.811A Laceration without foreign body, right lower leg, initial encounter; R31.29 Other microscopic hematuria; Z95.1 Presence of aortocoronary bypass graft; Z79.52 Long term (current) use of systemic steroids; Z91.81 History of falling; Z99.81 Dependence on supplemental oxygen; Z79.82 Long term (current) use of aspirin; Z90.710 Acquired absence of both cervix and uterus; Z79.899 Other long term (current) drug therapy; Z20.822 Contact with and (suspected) exposure to COVID-19; W01.0XXA Fall on same level from slipping, tripping and stumbling without subsequent striking against object, initial encounter
CPT/HCPCS: 36200; 36246; 36247; 36415; 36430; 70450; 71045; 71260; 72125; 74177; 75625; 76937; 80048; 80053; 80076; 80320; 81001; 81003; 82607; 82728; 82747; 83540; 83690; 83735; 83880; 84100; 84439; 84443; 84466; 84484; 85025; 85610; 85730; 86850; 86900; 86901; 87070; 87086; 87088; 87205; 93005; 93925; 93971; 94640; 96365; 96375; 97110; 97116; 97161; 97530; 99251; 99285; C1760; C1769; C1893; C9113; G0269; J0690; J1644; J1650; J2250; J2270; J2405; J3010; J3411; J3475; J3480; J7030; J7040; J7050; J7614; P9016; P9047; Q9967; U0003

== ENCOUNTER 2022-03-08 02:39 | Inpatient (IN) | payer OTHER ==
--- OUTSIDE RECORDS SUMMARY | 2022-03-08 02:43 | XMS REPORT | Continuity of Care Document ---
:1950 Author Organization [facility] t Address [address] [place] [address] Support Name Relationship Address Phone Noreen Ying Spouse [address] [place] [address] MD JOSE LOREDO MD A Emergency Provider [address] [place] [address] SHEN NEIL MD Attending Provider [address] [phone] 83 [place] [address] KARO QUINONES Primary Care Physician [address] [place] [address] NOREEN YING Next of Kin [address] [place] [address] KATHY GOMEZ MD Emergency Provider [address] [place] [address] DOMENICO KAMINSKI Child [address] [facility] [phone] [place] [address] CY LUNA MD Emergency Provider [address] [facility] [address] [place] [address] MD MAGDALENA GARCIA MD Admitting Provider [address] [phone] [place] [address] PORSHA PERERA JR Attending Provider [address] [facility] [address] [place] [address] MD ANGELINE QUARLES Emergency Provider [address] [phone] [place] [address] MD PORSHA PERERA JR Admitting Provider [address] [place] [address] MD FIDENCIO GUTIERREZ Emergency Provider [address] [place] [address] MD ANA CHANDLER Emergency Provider [address] [place] [address] LILI VIDAL MD Emergency Provider [address] [place] [address] MD MARISELA RUSH Emergency Provider [address] [phone] [place] [address] MD FISH SIMMONS Emergency Provider [address] [place] [address] Care Team Providers Name Role Phone Emma Dawson Primary Care Physician YANG ELIZABETH Attending Clinician Unavailable PORSHA PERERA Attending Clinician Unavailable ELIANA Attending Clinician Unavailable MAGDALENA GARCIA Attending Clinician Unavailable BRYCE CANALES Attending Clinician Unavailable Tony Attending Clinician Unavailable PORSHA PERERA Admitting Clinician Unavailable ELIANA Admitting Clinician Unavailable MAGDALENA GARCIA Admitting Clinician Unavailable Tony Admitting Clinician Unavailable Payers Payer Name Policy Type Policy Number Effective Date Expiration Date dorinda [facility] [id number] 2021 2022 (MEDICARE 00:00:00 00:00:00 REPLACEMENT/ADVAN TAGE - HMO) [place] [id number] 2017 [employer] 00:00:00 - [facility] MEDICARE B[place]: [id number] 2017 [place]OV[facility] [employer] 00:00:00 Problems Condition Condition Condition Status Onset [...] Outreac h Program Hyponatrem Hyponatrem Problem Active 2019- [facility] 1-16 da [facility] Home Home Problem Active 2019- [place] oxygen Oxygen 3-31 da therapy Therapy [facility] Alcohol Alcohol Problem Active [place] abuse Abuse 1-28 da 00:[facility] Fracture Fracture Problem Active [facility] of left of Left 1-19 da rib Rib 00:00: [facility] Major Major Problem Active [facility] depressive Depressive 5-06 da disorder Disorder 00:00: [facility] Generalize Generalize Problem Active [facility] d anxiety d Anxiety 506 da disorder Disorder 00:00: [facility] Nicotine Nicotine Problem Active [facility] dependence Dependence 3-07 da 00:00: [facility] Anxiety Anxiety Problem Active [facility] 3-02 da 00:[facility] 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 2-27 da erosis erosis 00:00: [facility] 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 00:00: [facility] aorta [...] Quantity Comments Source History of Smokes tobacco [facility] tobacco use daily Hospital Tobacco use and 2017-08-18 2017-08-18 Smokeless tobacco [facility] exposure 00:00:00 00:00:00 non-user Hospital Alcohol intake 2017-08-18 2017-08-18 Current drinker [facility] 00:00:00 00:00:00 of alcohol Hospital (finding) Sex Assigned At [birth year] [facility] 00:00:[facility] 00:[facility]:00 Hospital Smoking Status Start Date Stop Date Source Light Tobacco Smoker [facility] Smokes tobacco daily 2017-08-18 00:00:00 [facility] Medications Ordered Filled Start Stop Current Ordering Indication Dosage Frequency Signature Comments Components Source Medication Medication Date Date Medication? Clinician (SIG) Name Name metoprolol Yes 100mg Q.5D Take 100 Me [...] 90 needed for mcg/actuati wheezing. on inhaler amlodipine Yes 1{capsu QD Take 1 M ethodi [...] needed for mcg/actuati wheezing. on inhaler amlodipine- 2018-0 Yes 1{capsu QD Take 1 M ethodi benazepril 5-09 le} capsule by st (LOTREL) 10:34: mouth Hospita 10-20 mg 00 daily. l per capsule budesonide- Yes 2{puff} Q.5D Inhale 2 [facility] formoterol 5-[address] (SYMBICORT) 10:34: (two) Hospi ta 160-4.5 00 times a l mcg/actuati day. on inhaler metoprolol Yes 100mg Q.5D Take 100 Me [...] 90 needed for mcg/actuati wheezing. on inhaler albuterol Yes 2{puff} Q6H Inhale [...] 10-20 mg 00 daily. l per capsule budesonide- Yes 2{puff} Q.5D Inhale 2 [facility] [...] 90 needed for mcg/actuati wheezing. on inhaler SPIRIVA Yes 2{act} QD 2 Act [facility] RESPIMAT 4-[address] 2.5 00:00: Hospita mcg/actuati 00 l on mist SPIRIVA 2018-0 Yes 2{act} QD 2 Act [facility] RESPIMAT 4-[address] 2.5 00:00: Hospita mcg/actuati 00 l on mist SPIRIVA 2018-0 Yes 2{act} QD 2 Act [facility] RESPIMAT 4-[address] 2.5 00:00: Hospita mcg/actuati 00 l on mist SPIRIVA 2018-0 Yes 2{act} QD 2 Act [facility] RESPIMAT 4-[address] 2.5 00:00: Hospita mcg/actuati 00 l on mist SPIRIVA 2018-0 Yes 2{act} QD 2 Act [facility] RESPIMAT 4-[address] 2.5 00:00: Hospita mcg/actuati 00 l on mist SPIRIVA 2018-0 Yes 2{act} QD 2 Act [facility] RESPIMAT 4-[address] 2.5 00:00: Hospita mcg/actuati 00 l on mist SPIRIVA 2018-0 Yes 2{act} QD 2 Act [facility] RESPIMAT 4-[address] 2.5 00:00: Hospita mcg/actuati 00 l on mist SPIRIVA 2018-0 Yes 2{act} QD 2 Act [facility] RESPIMAT 4-[address] 2.5 00:00: Hospita mcg/actuati 00 l on mist SPIRIVA 2018-0 Yes 2{act} QD 2 Act [facility] RESPIMAT 4-[address] 2.5 00:00: Hospita mcg/actuati 00 l on mist SPIRIVA 2018-0 Yes 2{act} QD 2 Act [facility] RESPIMAT 4-[address] 2.5 00:00: Hospita mcg/actuati 00 l on mist SPIRIVA 2018-0 Yes 2{act} QD 2 Act [facility] RESPIMAT 4-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 TAKE 1/2 TAKE 1/2 tablet al [...] Ordered Immunization Filled Immunization Date Status Commen ts Source Name Name Influenza vaccine, Influenza vaccine, 2021-01-14 Completed [facility] quadrivalent, quadrivalent, 10:34:41 [facility] adjuvanted adjuvanted [...] (Moderna) (Moderna) Program Tdap Tdap 2020-02-26 Completed [facility] 17:27:50 [facility] pneumococcal pneumococcal 2020-02-08 Completed [facility] polysaccharide PPV23 polysaccharide PPV23 16:15:59 [facility] influenza, trivalent, influenza, 2020-01-09 Completed [place] adjuvanted trivalent, 16:02:46 [facility] adjuvanted [facility] influenza, trivalent, influenza, 2018-01-25 Completed [place] adjuvanted trivalent, 14:38:55 [facility] adjuvanted [facility] influenza, influenza, 2017-01-11 Completed [facility] injectable, injectable, 00:00:00 [facility] quadrivalent quadrivalent [facility] pneumococcal pneumococcal 2014-07-31 Completed [facility] conjugate PCV 13 conjugate PCV 13 00:00:00 [facility] Vital Signs Vital Name Observation Time Observation Value Comments Source BP Diastolic 2021-06-11 00:00:00 76 mm[Hg] [facility] Height 2021-06-11 00:00:00 68 [in_i] [facility] BMI (Body Mass 2021-06-11 00:00:00 20.2 kg/m2 [place] [facility] Index[facility] BP Systolic 2021-06-11 00:00:00 168 mm[Hg] [facility] Body Weight 2021-06-11 00:00:00 2128 [oz_av] [facility] BP Diastolic 2021-01-23 00:00:00 76 mm[Hg] [facility] Height 2021-01-23 00:00:00 68 [in_i] [facility] BMI (Body Mass 2021-01-23 00:00:00 20.4 kg/m2 [facility] Index) [facility] BP Systolic 2021-01-23 00:00:00 166 mm[Hg] [facility] Body Weight 2021-01-23 00:00:00 2144 [oz_av] [facility] BP Diastolic 2021-01-14 00:00:00 71 mm[Hg] [facility] Height 2021-01-14 00:00:00 68 [in_i] [facility] BMI (Body Mass 2021-01-14 00:00:00 20.4 kg/m2 [facility] BP Systolic 2021-01-14 00:00:00 131 mm[Hg] [facility] Body Weight 2021-01-14 00:00:00 2144 [oz_av] [facility] BP Diastolic 2020-08-27 00:00:00 76 mm[Hg] [place] [facility] Height 2020-08-27 00:00:00 68 [in_i] [facility] BMI (Body Mass 2020-08-27 00:00:00 17.6 kg/m2 [facility] Index) [facility] BP Systolic 2020-08-27 00:00:00 131 mm[Hg] [facility] Body Weight 2020-08-27 00:00:00 1856 [oz_av] [facility] BP Diastolic 2020-07-30 00:00:00 56 mm[Hg] [facility] Height 2020-07-30 00:00:00 68 [in_i] [facility] BMI (Body Mass 2020-07-30 00:00:00 18.4 kg/m2 [facility]) [facility] BP Systolic 2020-07-30 00:00:00 115 mm[Hg] [facility] Body Weight 2020-07-30 00:00:00 1936 [oz_av] [facility] BP Diastolic 2020-07-07 00:00:00 67 mm[Hg] [facility] Height 2020-07-07 00:00:00 68 [in_i] [facility] BMI (Body Mass 2020-07-07 00:00:00 18.5 kg/m2 [facility] BP Systolic 2020-07-07 00:00:00 127 mm[Hg] [facility] Body Weight 2020-07-07 00:00:00 1945.6 [oz_av] [facility] BP Diastolic 2020-04-29 00:00:00 70 mm[Hg] [place] [facility] Height 2020-04-29 00:00:00 68 [in_i] [facility] BMI (Body Mass 2020-04-29 00:00:00 19.2 kg/m2 [facility] Index) [facility] BP Systolic 2020-04-29 00:00:00 124 mm[Hg] [place] [facility] Body Weight 2020-04-29 00:00:00 2016 [oz_av] [place] [facility] BP Diastolic 2020-02-26 00:00:00 78 mm[Hg] [place] [facility] Height 2020-02-26 00:00:00 68 [in_i] [place] [facility] BP Systolic 2020-02-26 00:00:00 136 mm[Hg] [place] [facility] BP Diastolic 2020-02-08 00:00:00 77 mm[Hg] [place] [facility] Height 2020-02-08 00:00:00 68 [in_i] [place] [facility] BMI (Body Mass 2020-02-08 00:00:00 20.1 kg/m2 [facility] BP Systolic 2020-02-08 00:00:00 146 mm[Hg] [place] [facility] Body Weight 2020-02-08 00:00:00 2112 [oz_av] [place] [facility] BP Diastolic 2020-01-09 00:00:00 74 mm[Hg] [place] [facility] Height 2020-01-09 00:00:00 68 [in_i] [place] [facility] BMI (Body Mass 2020-01-09 00:00:00 19.9 kg/m2 [facility] BP Systolic 2020-01-09 00:00:00 124 mm[Hg] [place] [facility] Body Weight 2020-01-09 00:00:00 2091.2 [oz_av] [facility] BP Diastolic 2019-09-05 00:00:00 81 mm[Hg] [place] [facility] Height 2019-09-05 00:00:00 68 [in_i] [place] [facility] BMI (Body Mass 2019-09-05 00:00:00 19.4 kg/m2 [facility] Index[facility] BP Systolic 2019-09-05 00:00:00 149 mm[Hg] [place] [facility] Body Weight 2019-09-05 00:00:00 2038.4 [oz_av] [facility] BP Diastolic 2019-07-11 00:00:00 78 mm[Hg] [place] [facility] Height 2019-07-11 00:00:00 68 [in_i] [place] [facility] BP Systolic 2019-07-11 00:00:00 138 mm[Hg] [place] [facility] BP Diastolic 2019-06-06 00:00:00 58 mm[Hg] [place] [facility] Height 2019-06-06 00:00:00 68 [in_i] [place] [facility] BMI (Body Mass 2019-06-06 00:00:00 18.9 kg/m2 [facility] BP Systolic 2019-06-06 00:00:00 100 mm[Hg] [place] [facility] Body Weight 2019-06-06 00:00:00 124.1 [lb_av] [place] [facility] BP Diastolic 2019-05-09 00:00:00 60 mm[Hg] [place] [facility] Height 2019-05-09 00:00:00 68 [in_i] [place] [facility] BMI (Body Mass 2019-05-09 00:00:00 19.3 kg/m2 [facility] BP Systolic 2019-05-09 00:00:00 104 mm[Hg] [place] [facility] Body Weight 2019-05-09 00:00:00 127 [lb_av] [place] [facility] BP Diastolic 2019-03-06 00:00:00 66 mm[Hg] [place] [facility] Height 2019-03-06 00:00:00 68 [in_i] [place] [facility] BMI (Body Mass 2019-03-06 00:00:00 19.6 kg/m2 [facility] Index[facility] BP Systolic 2019-03-06 00:00:00 120 mm[Hg] [place] [facility] Body Weight 2019-03-06 00:00:00 129 [lb_av] [place] [facility] BP Diastolic 2019-02-01 00:00:00 70 mm[Hg] [place] [facility] Height 2019-02-01 00:00:00 68 [in_i] [place] [facility] BMI (Body Mass 2019-02-01 00:00:00 19.5 kg/m2 [facility] Index) [facility] BP Systolic 2019-02-01 00:00:00 120 mm[Hg] [place] [facility] Body Weight 2019-02-01 00:00:00 128 [lb_av] [place] [facility] BP Diastolic 2019-01-08 00:00:00 78 mm[Hg] [place] [facility] Height 2019-01-08 00:00:00 68 [in_i] [place] [facility] BMI (Body Mass 2019-01-08 00:00:00 19.3 kg/m2 [facility] Index) [facility] BP Systolic 2019-01-08 00:00:00 144 mm[Hg] [place] [facility] Body Weight 2019-01-08 00:00:00 126.9 [lb_av] [place] [facility] BP Diastolic 2019-01-02 00:00:00 68 mm[Hg] [place] [facility] Height 2019-01-02 00:00:00 68 [in_i] [place] [facility] BMI (Body Mass 2019-01-02 00:00:00 19.5 kg/m2 [facility] Index) [facility] BP Systolic 2019-01-02 00:00:00 120 mm[Hg] [place] [facility] Body Weight 2019-01-02 00:00:00 128 [lb_av] [place] [facility] Procedures Procedure Date / Time Performing Clinician Source Performed CHEST X-RAY 2020-08-27 00:00:00 [facility] MAMMO, screening, 2020-02-08 00:00:00 [place] [facility] digital, bilateral [facility] XR, knee, 3 view 2020-02-08 00:00:00 [facility] ELECTROCARDIOGRAM, 2020-02-08 00:00:00 [place] [facility] COMPLETE [facility] DXA BONE DENSITY, AXIAL 2020-02-08 00:00:00 [place] [facility] Colonoscopy 2018-08-19 00:00:00 [facility] Insertion of Arterial 2018-05-12 00:00:00 [place] [facility] Stent [facility] Knee Surgery 2011-04-12 00:00:00 [facility] Total Hysterectomy 1994-04-12 00:00:00 [facility] Lumpectomy of Breast 1988-04-12 00:00:00 [place] [facility] Plan of Care Planned Activity Planned Date Details Comments Source Future Scheduled 2022-02-12 HEPATITIS B VACCINES [facility] Test 20:52:12 (1 of 3 - 3-dose series) [code = HEPATITIS B VACCINES (1 of 3 - 3-dose series)] Future Scheduled 2022-02-12 COVID-19 VACCINE (#1) [facility] Test 20:52:12 [code = COVID-19 VACCINE (#1)] Future Scheduled 2022-02-12 BREAST CANCER [facility] Test 20:52:12 SCREENING [code = BREAST CANCER SCREENING] Future Scheduled 2022-02-12 COLONOSCOPY SCREENING [facility] Test 20:52:12 [code = COLONOSCOPY SCREENING] Future Scheduled 2022-02-12 SHINGLES VACCINES (1 [facility] Test 20:52:12 of 2) [code = SHINGLES VACCINES (1 of 2)] Future Scheduled 2022-02-12 65+ [facility]AL [facility] 20:52:12 VACCINE (1 - PCV) [code = 65+ PNEUMOCOCCAL VACCINE (1 - PCV)] Future Scheduled 2022-02-12 INFLUENZA VACCINE [facility] Test 20:52:12 [code = INFLUENZA VACCINE] Future Scheduled 2022-02-12 65+ [facility] Test 20:52:12 VACCINE (1 - PCV) [code = 65+ PNEUMOCOCCAL VACCINE (1 - PCV)] Future Scheduled 2022-02-12 INFLUENZA VACCINE [facility] Test 20:52:12 [code = INFLUENZA VACCINE] Future Scheduled 2022-02-12 HEPATITIS B VACCINES [facility] Test 20:52:12 (1 of 3 - 3-dose series) [code = HEPATITIS B VACCINES (1 of 3 - 3-dose series)] Future Scheduled 2022-02-12 COVID-19 VACCINE (#1) [facility] Test 20:52:12 [code = COVID-19 VACCINE (#1)] Future Scheduled 2022-02-12 BREAST CANCER [facility] Test 20:52:12 SCREENING [code = BREAST CANCER SCREENING] Future Scheduled 2022-02-12 COLONOSCOPY SCREENING [facility] Test 20:52:12 [code = COLONOSCOPY SCREENING] Future Scheduled 2022-02-12 SHINGLES VACCINES (1 [facility] Test 20:52:12 of 2) [code = SHINGLES VACCINES (1 of 2)] Future Scheduled 2022-02-12 65+ [facility]OCOCCAL [facility] Test 20:52:12 VACCINE (1 - PCV) [code = 65+ PNEUMOCOCCAL VACCINE (1 - PCV)] Future Scheduled 2022-02-12 INFLUENZA VACCINE [facility] Test 20:52:12 [code = INFLUENZA VACCINE] Future Scheduled 2022-02-12 HEPATITIS B VACCINES [facility] Test 20:52:12 (1 of 3 - 3-dose series) [code = HEPATITIS B VACCINES (1 of 3 - 3-dose series)] Future Scheduled 2022-02-12 COVID-19 VACCINE (#1) [facility] Test 20:52:12 [code = COVID-19 VACCINE (#1)] Future Scheduled 2022-02-12 BREAST CANCER [facility] Test 20:52:12 SCREENING [code = BREAST CANCER SCREENING] Future Scheduled 2022-02-12 COLONOSCOPY SCREENING [facility] Test 20:52:12 [code = COLONOSCOPY SCREENING] Future Scheduled 2022-02-12 SHINGLES VACCINES (1 [facility] Test 20:52:12 of 2) [code = SHINGLES VACCINES (1 of 2)] Future Scheduled 2022-02-12 65+ PNEUMOCOCCAL [facility] Test 20:52:12 VACCINE (1 - PCV) [code = 65+ PNEUMOCOCCAL VACCINE (1 - PCV)] Future Scheduled 2022-02-12 INFLUENZA VACCINE [facility] Test 20:52:12 [code = INFLUENZA VACCINE] Future Scheduled 2022-02-12 HEPATITIS B VACCINES [facility] Test 20:52:12 (1 of 3 - 3-dose series) [code = HEPATITIS B VACCINES (1 of 3 - 3-dose series)] Future Scheduled 2022-02-12 COVID-19 VACCINE (#1) [facility] Test 20:52:12 [code = COVID-19 VACCINE (#1)] Future Scheduled 2022-02-12 BREAST CANCER [facility] Test 20:52:12 SCREENING [code = BREAST CANCER SCREENING] Future Scheduled 2022-02-12 COLONOSCOPY SCREENING [facility] Test 20:52:12 [code = COLONOSCOPY SCREENING] Future Scheduled 2022-02-12 SHINGLES VACCINES (1 [facility] Test 20:52:12 of 2) [code = SHINGLES VACCINES (1 of 2)] Future Scheduled 2021-12-09 SHINGLES VACCINES (1 [facility] Test 21:29:44 of 2) [code = SHINGLES VACCINES (1 of 2)] Future Scheduled 2021-12-09 65+ PNEUMOCOCCAL [facility] Test 21:29:44 VACCINE (1 - PCV) [code = 65+ PNEUMOCOCCAL VACCINE (1 - PCV)] Future Scheduled 2021-12-09 INFLUENZA VACCINE [facility] Test 21:29:44 [code = INFLUENZA VACCINE] Future Scheduled 2021-12-09 HEPATITIS B VACCINES [facility] Test 21:29:44 (1 of 3 - 3-dose series) [code = HEPATITIS B VACCINES (1 of 3 - 3-dose series)] Future Scheduled 2021-12-09 COVID-19 VACCINE (#1) [facility] Test 21:29:44 [code = COVID-19 VACCINE (#1)] Future Scheduled 2021-12-09 BREAST CANCER [facility] Test 21:29:44 SCREENING [code = BREAST CANCER SCREENING] Future Scheduled 2021-12-09 COLONOSCOPY SCREENING [facility] Test 21:29:44 [code = COLONOSCOPY SCREENING] Future Scheduled 2021-12-09 SHINGLES VACCINES (1 [facility] Test 21:29:44 of 2) [code = SHINGLES VACCINES (1 of 2)] Future Scheduled 2021-12-09 65+ [facility]AL [facility] Test 21:29:44 VACCINE (1 - PCV) [code = 65+ PNEUMOCOCCAL VACCINE (1 - PCV)] Future Scheduled 2021-12-09 INFLUENZA VACCINE [facility] Test 21:29:44 [code = INFLUENZA VACCINE] Future Scheduled 2021-12-09 HEPATITIS B VACCINES [facility] Test 21:29:44 (1 of 3 - 3-dose series) [code = HEPATITIS B VACCINES (1 of 3 - 3-dose series)] Future Scheduled 2021-12-09 COVID-19 VACCINE (#1) [facility] Test 21:29:44 [code = COVID-19 VACCINE (#1)] Future Scheduled 2021-12-09 BREAST CANCER [facility] Test 21:29:44 SCREENING [code = BREAST CANCER SCREENING] Future Scheduled 2021-12-09 COLONOSCOPY SCREENING [facility] Test 21:29:44 [code = COLONOSCOPY SCREENING] Future Scheduled 2021-12-09 SHINGLES VACCINES (1 [facility] Test 21:29:44 of 2) [code = SHINGLES VACCINES (1 of 2)] Future Scheduled 2021-12-09 65+ [facility] Test 21:29:44 VACCINE (1 - PCV) [code = 65+ PNEUMOCOCCAL VACCINE (1 - PCV)] Future Scheduled 2021-12-09 INFLUENZA VACCINE [facility] Test 21:29:44 [code = INFLUENZA VACCINE] Future Scheduled 2021-12-09 HEPATITIS B VACCINES [facility] Test 21:29:44 (1 of 3 - 3-dose series) [code = HEPATITIS B VACCINES (1 of 3 - 3-dose series)] Future Scheduled 2021-12-09 COVID-19 VACCINE (#1) [facility] Test 21:29:44 [code = COVID-19 VACCINE (#1)] Future Scheduled 2021-12-09 BREAST CANCER [facility] Test 21:29:44 SCREENING [code = BREAST CANCER SCREENING] Future Scheduled 2021-12-09 COLONOSCOPY SCREENING [facility] Test 21:29:44 [code = COLONOSCOPY SCREENING] Future Scheduled 2021-12-09 SHINGLES VACCINES (1 [facility] Test 21:29:44 of 2) [code = SHINGLES VACCINES (1 of 2)] Future Scheduled 2021-12-09 65+ PNEUMOCOCCAL [facility] Test 21:29:44 VACCINE (1 - PCV) [code = 65+ PNEUMOCOCCAL VACCINE (1 - PCV)] Future Scheduled 2021-12-09 INFLUENZA VACCINE [facility] Test 21:29:44 [code = INFLUENZA VACCINE] Future Scheduled 2021-12-09 HEPATITIS B VACCINES [facility] Test 21:29:44 (1 of 3 - 3-dose series) [code = HEPATITIS B VACCINES (1 of 3 - 3-dose series)] Future Scheduled 2021-12-09 COVID-19 VACCINE (#1) [facility] Test 21:29:44 [code = COVID-19 VACCINE (#1)] Future Scheduled 2021-12-09 BREAST CANCER [facility] Test 21:29:44 SCREENING [code = BREAST CANCER SCREENING] Future Scheduled 2021-12-09 COLONOSCOPY SCREENING [facility] Test 21:29:44 [code = COLONOSCOPY SCREENING] Future Scheduled 2021-12-09 SHINGLES VACCINES (1 [facility] Test 21:29:44 of 2) [code = SHINGLES VACCINES (1 of 2)] Future Scheduled 2021-12-09 65+ [facility]OCOCCAL [facility] Test 21:29:44 VACCINE (1 - PCV) [code = 65+ PNEUMOCOCCAL VACCINE (1 - PCV)] Future Scheduled 2021-12-09 INFLUENZA VACCINE [facility] Test 21:29:44 [code = INFLUENZA VACCINE] Future Scheduled 2021-12-09 HEPATITIS B VACCINES [facility] Test 21:29:44 (1 of 3 - 3-dose series) [code = HEPATITIS B VACCINES (1 of 3 - 3-dose series)] Future Scheduled 2021-12-09 COVID-19 VACCINE (#1) [facility] Test 21:29:44 [code = COVID-19 VACCINE (#1)] Future Scheduled 2021-12-09 BREAST CANCER [facility] Test 21:29:44 SCREENING [code = BREAST CANCER SCREENING] Future Scheduled 2021-12-09 COLONOSCOPY SCREENING [facility] Test 21:29:44 [code = COLONOSCOPY SCREENING] Future Scheduled 2021-12-06 HEPATITIS B VACCINES [facility] Test 23:44:19 (1 of 3 - 3-dose series) [code = HEPATITIS B VACCINES (1 of 3 - 3-dose series)] Future Scheduled 2021-12-06 COVID-19 VACCINE (#1) [facility] Test 23:44:19 [code = COVID-19 VACCINE (#1)] Future Scheduled 2021-12-06 BREAST CANCER [facility] Test 23:44:19 SCREENING [code = BREAST CANCER SCREENING] Future Scheduled 2021-12-06 COLONOSCOPY SCREENING [facility] Test 23:44:19 [code = COLONOSCOPY SCREENING] Future Scheduled 2021-12-06 SHINGLES VACCINES (1 [facility] Test 23:44:19 of 2) [code = SHINGLES VACCINES (1 of 2)] Future Scheduled 2021-12-06 65+ [facility]OCOCCAL [facility] Test 23:44:19 VACCINE (1 - PCV) [code = 65+ PNEUMOCOCCAL VACCINE (1 - PCV)] Future Scheduled 2021-12-06 INFLUENZA VACCINE [facility] Test 23:44:19 [code = INFLUENZA VACCINE] Future Scheduled 2021-12-06 HEPATITIS B VACCINES [facility] Test 23:44:19 (1 of 3 - 3-dose series) [code = HEPATITIS B VACCINES (1 of 3 - 3-dose series)] Future Scheduled 2021-12-06 COVID-19 VACCINE (#1) [facility] Test 23:44:19 [code = COVID-19 VACCINE (#1)] Future Scheduled 2021-12-06 BREAST CANCER [facility] Test 23:44:19 SCREENING [code = BREAST CANCER SCREENING] Future Scheduled 2021-12-06 COLONOSCOPY SCREENING [facility] Test 23:44:19 [code = COLONOSCOPY SCREENING] Future Scheduled 2021-12-06 SHINGLES VACCINES (1 [facility] Test 23:44:19 of 2) [code = SHINGLES VACCINES (1 of 2)] Future Scheduled 2021-12-06 65+ [facility]CCAL [facility] Test 23:44:19 VACCINE (1 - PCV) [code = 65+ PNEUMOCOCCAL VACCINE (1 - PCV)] Future Scheduled 2021-12-06 INFLUENZA VACCINE [facility] Test 23:44:19 [code = INFLUENZA VACCINE] Diagnostic Test 2021-06-12 CBC w/ auto diff [place] Pending 00:00:00 [code = CBC w/ auto [facility] diff] [facility] Test 2021-06-12 anemia panel [code = [place] mylene Pending 00:00:00 anemia panel] [facility] Test 2021-06-11 noninvasive [place] Pending 00:00:00 colorectal cancer DNA [facility] + occult blood [facility] Pro[facility] therese screening, QL, stool [code = noninvasive colorectal cancer DNA + occult blood screening, QL, stool] Encounters Start End Encounter Admission Attending Care Care Encounter Source Date/Time Date/Time Type Type Clinicians Facility Department ID 2022-03-02 2022-03-02 Emergency ER IVÁNANGELAudra [facility] [id number] [place] 19:40:00 23:04:00 YANG -[id number] Critical access hospital 2022-02-26 2022-03-01 Inpatient ER TREVER [facility] MED [id number] [place] 08:56:00 13:44:00 PORSHA [id number] Critical access hospital 2022-02-25 2022-02-25 Inpatient ER TREVER [facility] MED [id number] [place] 22:03:00 16:40:00 PORSHA [id number] Critical access hospital 2022-02-19 2022-02-19 Outpatient [facility] 911 [place] 00:00:00 00:00:00 _ANN 1110 [facility] 2022-02-07 2022-02-08 Inpatient ER JOSE [facility] MED [id number] [place] 16:31:00 16:00:00 MAGDALENA [id number] [facility] 2022-02-05 2022-02-05 Inpatient ER JOSE [facility] MED [id number] [place] 22:08:00 17:57:00 MAGDALENA -[id number] [facility] 2022-01-26 2022-01-26 [facility] 911 07-2022 [place] 00:00:00 00:00:00 _ANN 1017 [facility] 2022-01-19 2022-01-20 Emergency ER CLARA, [facility] [id number] [place] 23:10:00 04:17:00 YANG -[id number] Critical access hospital 2021-12-10 2021-12-10 Outpatient SHIMEK_OLGA [facility] 911 [place] 00:00:00 00:00:00 _ANN 0831 [facility] 2021-10-28 2021-10-28 Emergency ER ALLY, [facility] [id number] [place] 16:39:00 16:39:00 BRYCE -[id number] Critical access hospital 2021-09-17 2021-09-17 Outpatient SHIMEK_[facility] 911 [place] 02:18:00 02:18:00 _ANN 0726 [facility] 2021-09-17 2021-09-17 Outpatient SHIMEK_MARY [facility] 911 [place] 00:00:00 00:00:00 _ANN 0608 [facility] 2021-08-10 2021-08-10 Outpatient SHIMEK_MARY [facility] 911 [place] 04:35:00 04:35:00 _ANN 0527 [facility] 2021-08-05 2021-08-05 Outpatient SHIMEK_MARY [facility] 911 [place] 01:59:00 01:59:00 _ANN 0426 [facility] 2021-08-02 2021-08-02 Outpatient SHIMEK_MARY [facility] 911 [place] 10:47:00 10:47:00 _ANN 0423 [facility] 2021-08-01 2021-08-01 Outpatient SHIMEK_MARY [facility] 911 [place] 09:45:00 09:45:00 _ANN 0422 [facility] 2021-07-02 2021-07-02 Outpatient [facility]EDES [facility] 911 [place] 03:02:00 03:02:00 _ANN 0323 [facility] 2021-07-01 2021-07-01 Outpatient [facility] 911 [place] 12:48:00 12:48:00 _ANN 0322 [facility] 2021-06-11 2021-06-11 Outpatient [facility] 911 [place] 04:57:00 04:57:00 _ANN 0302 [facility] 2021-06-11 2021-06-11 Rosa A [facility] - 2 [place] 00:00:00 00:00:00 Brit Quinones da INSIDE SALES ADVISOR: 1700 [facility] [place] [place] [facility] [place] [address] h , Ph. Program 2021-06-09 2021-06-09 Outpatient MER[facility]EDES BE[facility] 911 [place] 04:51:00 04:51:00 _ANN 0228 [facility] 2021-06-03 2021-06-03 Outpatient MERCEDES BEY [facility] 911 [place] 10:09:00 10:09:00 _ANN 0222 [facility] 2021-06-03 2021-06-03 Outpatient MERCEDES BEY [facility] 911 [place] 10:09:00 10:09:00 _ANN 0224 [facility] 2021-06-02 2021-06-02 Outpatient [facility] 911 [place] 09:29:00 09:29:00 _ANN 0221 [facility] 2021-05-30 2021-05-30 Outpatient [facility]EDES BEY [facility] 911 [place] 02:41:00 02:41:00 _ANN 0218 [facility] 2021-01-23 2021-01-23 Outpatient ROSA_OLGA BEY [facility] [place] 04:27:00 04:27:00 _ANN 1014 [facility] 2021-01-23 2021-01-23 Rosa Katherine [place] - [id number] [place] 00:00:00 00:00:00 Brit Quinones da INSIDE SALES ADVISOR: 1700 [facility] [place] [address] h , Ph. Program 2021-01-14 2021-01-14 Outpatient ROSA_OLGA BEY [facility] [place] 11:05:00 11:05:00 _ANN 1005 [facility] 2021-01-14 2021-01-14 Olga [place] - [id number] [place] 00:00:00 00:00:00 Brit Quinones da INSIDE SALES ADVISOR: 1700 [facility] [place] [address] h , Ph. Program 2021-01-13 2021-01-13 Outpatient ROSA_OLGA BEY [facility] [place] 09:32:00 09:32:00 _ANN 1004 [facility] 2020-09-12 2020-09-12 Outpatient ALEXXEK_OLGA BEY [facility] [place] 05:29:00 05:29:00 _ANN 0603 [facility] 2020-08-27 2020-08-27 Outpatient ALEXXEK_OLGA BEY [facility] [place] 11:32:00 11:32:00 _ANN 0518 [facility] 2020-08-27 2020-08-27 Olga Murphy [place] - [id number] [place] 00:00:00 00:00:00 Brit Quinones da INSIDE SALES ADVISOR: 1700 [facility] [address], [place], [place] 3 [facility] [phone] h , Ph. Program 2020-07-30 2020-07-30 Outpatient SHIMEK_OLGA BEY [facility] [place] 03:48:00 03:48:00 _ANN 0420 [facility] 2020-07-30 2020-07-30 Olga BEY [place] - [id number] [place] 00:00:00 00:00:00 Brit Quinones da INSIDE SALES ADVISOR: 1700 [facility] [address], [place], [place] 3 [facility] [address] h , Ph. Program 2020-07-07 2020-07-07 Outpatient SHIMEK_OLGA BEY [facility] [place] 11:27:00 11:27:00 _ANN 0328 [facility] 2020-07-07 2020-07-07 Olga BEY [place] - [id number] [place] 00:00:00 00:00:00 Brit Quinones da INSIDE SALES ADVISOR: 1700 [facility] - [address], [facility] [address] h , Ph. Program 2020-05-21 2020-05-21 Outpatient SHIMEK_OLGA BEY [facility] [place] 12:23:00 12:23:00 _ANN 0209 [facility] 2020-04-29 2020-04-29 Outpatient SHIMEK_OLGA BEY [facility] [place] 03:47:00 03:47:00 _ANN 0118 [facility] 2020-04-29 2020-04-29 Olga BEY [place] - [id number] [place] 00:00:00 00:00:00 Brit Quinones da INSIDE SALES ADVISOR: 1700 [facility] [address], [place] [address] [place] [phone] h , Ph. Program 2020-02-26 2020-02-26 Outpatient SHIMEK_OLGA BEY 911 [place] 05:04:00 05:04:00 _ANN 1116 [facility] 2020-02-26 2020-02-26 Olga BEY [place] - [id number] [place] 00:00:00 00:00:00 Brit Quinones da INSIDE SALES ADVISOR: 1700 [facility] [address], [place], [place] [address] h , Ph. Program 2020-02-08 2020-02-08 Outpatient SHIMEK_OLGA PERRYHOP [place] 03:58:00 03:58:00 _ANN 1029 [facility] 2020-02-08 2020-02-08 Olga BEY [place] - [id number] [place] 00:00:00 00:00:00 Brit Quinones da INSIDE SALES ADVISOR: 1700 [facility] [address], [place], [place] [address] h , Ph. Program 2020-01-10 2020-01-10 Outpatient SHIMEK_OLGA PERRYHOP [place] 03:26:00 03:26:00 _ANN 0930 [facility] 2020-01-09 2020-01-09 Outpatient SHIMEK_OLGA PERRYHOP [place] 04:16:00 04:16:00 _ANN 0929 [facility] 2020-01-09 2020-01-09 Olga BEY [place] - [id number] [place] 00:00:00 00:00:00 Brit Quinones da INSIDE SALES ADVISOR: 1700 [facility] [address], [place], [place] [address] h , Ph. Program 2020-01-08 2020-01-08 Outpatient SHIMEK_OLGA PERRYHOP [facility] 911 [place] 12:40:00 12:40:00 _ANN 0928 [facility] 2020-01-07 2020-01-07 Outpatient SHIMEK_OLGA PERRYHOP [facility] 911 [place] 01:13:00 01:13:00 _ANN 0927 [facility] 2019-12-19 2019-12-19 Outpatient Tony MMG MMG [id number] [place] 11:09:00 11:09:00 0908 [facility] 2019-11-17 2019-11-17 Outpatient SHIMEK_OLGA [facility] 911 [place] 12:59:00 12:59:00 _ANN 0807 [facility] 2019-11-17 2019-11-17 Outpatient ALEXXEK_OLGA [facility] 911 [place] 12:59:00 12:59:00 _ANN 0925 [facility] 2019-10-23 2019-10-23 Outpatient SHIMEK_OLGA [facility] 911 [place] 04:35:00 04:35:00 _ANN 0713 [facility] 2019-10-13 2019-10-13 Outpatient SHIMEK_OLGA PERRYHOP [facility] 911 [place] 12:38:00 12:38:00 _ANN 0703 [facility] 2019-09-08 2019-09-08 Outpatient SHIMEK_OLGA [facility] 911 [place] 12:52:00 12:52:00 _ANN 0529 [facility] 2019-09-06 2019-09-06 Outpatient SHIMEK_OLGA [facility] 911 [place] 05:29:00 05:29:00 _ANN 0527 [facility] 2019-09-05 2019-09-05 Outpatient SHIMEK_OLGA [facility] 911 [place] 09:45:00 09:45:00 _ANN 0526 [facility] 2019-09-05 2019-09-05 Ademariam MEHOP [place] - [id number] [place] 00:00:00 00:00:00 Brit Luis da INSIDE SALES ADVISOR: 1700 [facility] - [facility] [address], [facility], [facility] Outre [address] h , Ph. Program 2019-08-04 2019-08-04 Outpatient SHIMEK_OLGA PERRYHOP [facility]OP 911 [place] 12:48:00 12:48:00 _ANN 0424 [facility] 2019-07-17 2019-07-17 Outpatient SHIMEK_OLGA PERRYHOP [facility]OP 911 [place] 02:08:00 02:08:00 _ANN 0406 [facility] 2019-07-11 2019-07-11 Outpatient SHIMEK_OLGA PERRYHOP [facility] 911 [place] 04:54:00 04:54:00 _ANN 0331 [facility] 2019-07-11 2019-07-11 Olga Murphy [place] - [id number] [place] 00:00:00 00:00:00 Brit Quinones INSIDE SALES ADVISOR: 1700 [facility] - [facility] [address], [place], [place] [address] h , Ph. Program 2019-06-23 2019-06-23 Outpatient SHIMEK_OLGA PERRYHOP [facility] 911 [place] 11:30:00 11:30:00 _ANN 0320 [facility] 2019-06-23 2019-06-23 Outpatient SHIMEK_OLGA PERRYHOP [facility] 911 [place] 11:30:00 11:30:00 _ANN 0327 [facility] 2019-06-06 2019-06-06 Outpatient SHIMEK_OLGA PERRYHOP [facility] 911 [place] 01:07:00 01:07:00 _ANN 0225 [facility] 2019-06-06 2019-06-06 Olga Murphy [place] - [id number] [place] 00:00:00 00:00:00 ShimekShabbirBannock da INSIDE SALES ADVISOR: 1700 [facility] [address], [facility] [address] h , Ph. Program 2019-05-29 2019-05-29 Outpatient ROSA_OLGA BEY 911 [place] 02:29:00 02:29:00 _ANN 0217 [facility] 2019-05-09 2019-05-09 Outpatient SHIMEK_OLGA BEY 911 [place] 01:22:00 01:22:00 _ANN 0128 [facility] 2019-05-09 2019-05-09 Olga BEY [place] - [id number] [place] 00:00:00 00:00:00 AlexxekShabbirBannock da INSIDE SALES ADVISOR: 1700 [facility] [address], [facility] [address] h , Ph. Program 2019-04-02 2019-04-02 Outpatient ROSA_OLGA BEY [place] 911 [place] 11:26:00 11:26:00 _ANN 0104 [facility] 2019-03-06 2019-03-06 Olga BEY [place] - [id number] [place] 00:00:00 00:00:00 Shabbir Quinones[place]orda da INSIDE SALES ADVISOR: 1700 [facility] [address], [address] [address] Ritchie am , Ph. 2019-02-01 2019-02-01 Olga BEY [place] - [id number] [place] 00:00:00 00:00:00 ShimekShabbirBannock da INSIDE SALES ADVISOR: 1700 [facility] [address], [address] [address] Ritchie prescott , Ph. 2019-01-08 2019-01-08 Areli BEY [place] - [id number] M [place] 00:00:00 00:00:00 Shailesh Villeda, [facility] INSIDE SALES ADVISOR: 1700 [facility], [place] [address], [facility] [address] , Ph. 2019-01-02 2019-01-02 Olga BEY [place] - [id number] [place] 00:00:00 00:00:00 Brit Quinones INSIDE SALES ADVISOR: 1700 [facility] [place] [address], [facility] [address] Progr am , Ph. Results Test Description Test Time Test Comments Results Result Comments Source Free T4 and TSH panel - Serum or Plasma 2021-01-15 00:00:00 Test Item Value Reference Range Interpretation Comme nts Thyrotropin [Units/volume] in Serum or Plasma by 0.940 uIU/mL 0.450 -4.500 Detection limit <= 0.005 mIU/L (test code = 11529-0) Thyroxine (T4) free [Mass/volume] in Serum or Plasma 1.02 NG/dL 0 .82-1.77 (test code = 3024-7) [facility] W Auto Differential panel - Blood 2021-01-15 [...] = 706-2) immature cells (test code = dental patient coordinator immature cells) Neutrophils [#/volume] in Blood 9.2 [...] Blood by Automated count (test code = 70677-7) Immature granulocytes 0.1 x10e3/uL 0.0-0.1 [#/volume] in Blood by Automated count (test code = 67364-0) Nucleated erythrocytes/100 dental patient coordinator leukocytes [Ratio] in Blood by Automated count (test code = 17658-4) Morphology [Interpretation] in dental patient coordinator Blood Narrative (test code = 57147-8) [facility] - Serum or [id number] 00:00:00 Test Item Value Reference Range Interpretation [...] by Creatinine-based formula (CKD-EPI) (test code = 91955-9) Glomerular filtration 107 mL/min/1.73 >59 rate/1.73 sq M.predicted among blacks [Volume Rate/Area] in Serum, Plasma or Blood by Creatinine-based formula (CKD-EPI) (test code = 96797-1) Urea nitrogen/Creatinine 17 12-28 [Mass Ratio] in [...] 8.7-10.3 Serum or Plasma (test code = 35095-1) Protein [Mass/volume] in 6.5 g/dL 6.0-8.5 Serum or Plasma (test code = 2885-2) Albumin [Mass/volume] in 4.5 g/dL 3.8-4.8 Serum or Plasma (test code = 1751-7) Globulin [Mass/volume] in 2.0 g/dL 1.5-4.5 Serum by calculation (test code = 51712-1) Albumin/Globulin [Mass Ratio] 2.3 1.2-2.2 H in Serum or Plasma (test code = 1759-0) Bilirubin.total [Mass/volume] 0.6 mg/dL 0.0-1.2 in Serum or Plasma (test code = 1975-2) Alkaline phosphatase 84 IU/L 44-121 [Enzymatic activity/volume] in Serum or Plasma (test code = 6768-6) Aspartate aminotransferase 19 IU/L 0-40 [Enzymatic activity/volume] in Serum or Plasma (test code = 1920-8) Alanine aminotransferase 18 IU/L 0-32 [Enzymatic activity/volume] in Serum or Plasma (test code = 1742-6) [facility] - Serum or Plasma 2021-01-15 [...] or Plasma by calculation (test code = 89517-2) Cholesterol in LDL [Mass/volume] in 83 mg/dL 0-99 Serum or Plasma by calculation (test code = 09256-7) Laboratory comment [Text] in Report dental patient coordinator Narrative (test code = 48480-1) [facility]/Hemoglobin.total in [id number] 00:00:00 Test Item Value Reference Range Interpretation Comments Hemoglobin A1c/Hemoglobin.total in 6.1 % 4.8-5.6 H Blood (test code = 4548-4) Glucose mean value [Mass/volume] in 128 mg/dL Blood Estimated from glycated hemoglobin (test code = 38357-7) [facility], [id number] 00:00:00 Test Item Value Reference Range Interpretation Comments Interpretation and review of laboratory note results (test code = 66306-6) Report (test code = 98733-9) . [facility]SH [facility] - Serum or [id number] 00:00:00 Test Item Value Reference Range Interpretation Comments Thyrotropin [Units/volume] in 1.050 uIU/mL 0.450-4.500 Serum or Plasma by Detection limit <= 0.005 mIU/L (test code = 35719-7) Thyroxine (T4) free 1.08 NG/dL 0.82-1.77 [Mass/volume] in Serum or Plasma (test code = 3024-7) [facility] Differential [facility] - Blood 2020-02-09 [...] = 706-2) immature cells (test code = dental patient coordinator immature cells) Neutrophils [#/volume] in Blood 6.8 [...] Blood by Automated count (test code = 94510-9) Immature granulocytes 0.0 x10e3/uL 0.0-0.1 [#/volume] in Blood by Automated count (test code = 24609-4) Nucleated erythrocytes/100 dental patient coordinator leukocytes [Ratio] in Blood by Automated count (test code = 39062-9) Morphology [Interpretation] in dental patient coordinator Blood Narrative (test code = 72836-0) [facility]Com[facility] 2000 panel - Serum or [id number] 00:00:00 Test Item Value Reference Range Interpretation [...] by Creatinine-based formula (CKD-EPI) (test code = 38299-1) Glomerular filtration 92 mL/min/1.73 >59 rate/1.73 sq M.predicted among blacks [Volume Rate/Area] in Serum, Plasma or Blood by Creatinine-based formula (CKD-EPI) (test code = 74523-4) Urea nitrogen/Creatinine [Mass 6 12-28 L Ratio] in Serum or Plasma (test code = 3097-3) Sodium [Moles/volume] in Serum 129 mmol/L 134-144 L or Plasma (test code = 2951-2) Potassium [Moles/volume] in 4.3 mmol/L 3.5-5.2 Serum or Plasma (test code = 2823-3) Chloride [Moles/volume] in 90 mmol/L 96-106 L Serum or Plasma (test code = 207-0) Carbon dioxide, total 20 mmol/L 20-29 [Moles/volume] in Serum or Plasma (test code = 2027-) Calcium [Mass/volume] in Serum 9.2 mg/dL 8.7-10.3 or Plasma (test code = 75804-5) Protein [Mass/volume] in Serum 7.2 g/dL 6.0-8.5 or Plasma (test code = 2885-2) Albumin [Mass/volume] in Serum 4.7 g/dL 3.8-4.8 or Plasma (test code = 1751-7) Globulin [Mass/volume] in 2.5 g/dL 1.5-4.5 Serum by calculation (test code = 51232-6) Albumin/Globulin [Mass Ratio] 1.9 1.2-2.2 in Serum or Plasma (test code = 1759-0) Bilirubin.total [Mass/volume] 1.2 mg/dL 0.0-1.2 in Serum or Plasma (test code = 1974-) Alkaline phosphatase 239 IU/L 39-117 H [Enzymatic activity/volume] in Serum or Plasma (test code = 6768-6) Aspartate aminotransferase 18 IU/L 0-40 [Enzymatic activity/volume] in Serum or Plasma (test code = 0-8) Alanine aminotransferase 10 IU/L 0-32 [Enzymatic activity/volume] in Serum or Plasma (test code = 1741-6) [facility] - Serum or Plasma 2020-02-09 [...] or Plasma by calculation (test code = 06279-8) Cholesterol in LDL [Mass/volume] in 112 mg/dL 0-99 H Serum or Plasma by calculation (test code = 12696-5) Laboratory comment [Text] in Report dental patient coordinator Narrative (test code = 68205-3) [facility] aP[facility] panel - Platelet poor plasma by Coagulation [id number] 00:00:00 Test Item Value Reference Range Interpretation Comments INR in Platelet poor plasma by 1.0 0.9-1.2 Coagulation assay (test code = 6301-6) Prothrombin time (PT) (test code = 10.6 sec 9.1-12.0 5902-2) aPTT in Platelet poor plasma by 32 sec 24-33 Coagulation assay (test code = 13034-2) [facility] ProgramMicroalbumin/Creatinine [Mass Ratio] in [id number] 00:00:00 Test Item Value Reference Range Interpretation Comments Creatinine [Mass/volume] in 154.3 mg/dL not estab. Urine (test code = 2161-8) Microalbumin [Mass/volume] in 48.2 ug/mL not estab. Urine (test code = 18779-5) Albumin/Creatinine [Mass ratio] 31 mg/g creat 0-29 H in Urine (test code = 9318-7) [facility]Hemoglobin.total in [id number] 00:00:00 Test Item Value Reference Range Interpretation Comments Hemoglobin A1c/Hemoglobin.total in 6.0 % 4.8-5.6 H Blood (test code = 4548-4) Glucose mean value [Mass/volume] in 126 mg/dL Blood Estimated from glycated hemoglobin (test code = 36926-1) [facility], [id number] 00:00:00 Test Item Value Reference Range Interpretation Comments interpretation (test code = note interpretation) pdf (test code = pdf) . [facility]fieldBacteria identified in Urine by [id number] 00:00:00 Test Item Value Reference Range Interpretation Comments Bacteria identified in Urine by no growth Culture (test code = 630-4) [facility] by [id number] 00:00:00 Test Item Value Reference Range Interpretation Comments Bacteria identified in Urine by no growth Culture (test code = 630-4) [facility] macro (dipstick) panel - [id number] 15:50:30 Test Item Value Reference Range Interpretation Comments Leukocytes (test code = Trace Leukocytes) Nitrite (test code = Nitrite) Neg Urobilinogen (test code = Neg Urobilinogen) Protein (test code = Protein) Trace pH (test code = pH) 6.5 Blood (test code = Blood) Neg Specific Bradford (test code = 1.015 Specific Bradford) Ketone (test code = Ketone) Neg Bilirubin (test code = Neg Bilirubin) Glucose (test code = Glucose) Neg Appearance (test code = slightly cloudy Appearance) Color (test code = Color) dark yellow [facility] macro (dipstick) panel - [id number] 15:50:30 Test Item Value Reference Range Interpretation Comments Leukocytes (test code = Trace Leukocytes) Nitrite (test code = Nitrite) Neg Urobilinogen (test code = Neg Urobilinogen) Protein (test code = Protein) Trace pH (test code = pH) 6.5 Blood (test code = Blood) Neg Specific Bradford (test code = 1.015 Specific Bradford) Ketone (test code = Ketone) Neg Bilirubin (test code = Neg Bilirubin) Glucose (test code = Glucose) Neg Appearance (test code = slightly cloudy Appearance) Color (test code = Color) dark yellow [facility] TSH [facility] - Serum or [id number] 00:00:00 Test Item Value Reference Range Interpretation Comments Thyrotropin [Units/volume] in 1.030 uIU/mL 0.450-4.500 Serum or Plasma by Detection limit <= 0.005 mIU/L (test code = 32317-1) Thyroxine (T4) free 1.07 NG/dL 0.82-1.77 [Mass/volume] in Serum or Plasma (test code = 3024-7) [facility] W Auto Differential panel - Blood 2019-02-02 [...] = 706-2) immature cells (test code = dental patient coordinator immature cells) Neutrophils [#/volume] in Blood 11.0 [...] Blood by Automated count (test code = 09239-2) Nucleated erythrocytes/100 dental patient coordinator leukocytes [Ratio] in Blood by Automated count (test code = 12400-5) Morphology [interpretation] in dental patient coordinator Blood Narrative (test code = 08895-8) [facility] 2000 [facility] - Serum or [id number] 00:00:00 Test Item Value Reference Range Interpretation [...] 96-106 Serum or Plasma (test code = 5-0) Carbon dioxide, total 23 mmol/L 20-29 [Moles/volume] in Serum or Plasma (test code = 2027-9) Calcium [Mass/volume] in Serum 9.1 mg/dL 8.7-10.3 or Plasma (test code = 60917-0) Protein [Mass/volume] in Serum 7.2 g/dL 6.0-8.5 or Plasma (test code = 2885-2) Albumin [Mass/volume] in Serum 4.6 g/dL 3.6-4.8 or Plasma (test code = 1751-7) Globulin [Mass/volume] in 2.6 g/dL 1.5-4.5 Serum by calculation (test code = 88837-3) Albumin/Globulin [Mass Ratio] 1.8 1.2-2.2 in Serum [...] Serum or Plasma (test code = 1742-6) [facility] - Serum or Plasma 2019-02-02 [...] or Plasma by calculation (test code = 61624-2) Cholesterol in LDL [Mass/volume] in 83 mg/dL 0-99 Serum or Plasma by calculation (test code = 44753-2) comment: (test code = comment:) dental patient coordinator [facility] A1c/Hemoglobin.total in [id number] 00:00:00 Test Item Value Reference Range Interpretation Comments Hemoglobin A1c/Hemoglobin.total in 5.6 % 4.8-5.6 Blood (test code = 4548-4) [facility], [id number] 00:00:00 Test Item Value Reference Range Interpretation Comments interpretation (test code = note interpretation) pdf image (test code = pdf image) . [facility]
[2022-03-08 03:29] LABS: Hematocrit 30.1 % (36.0-45.0); Lymphocytes % 18.1 % (15.3-44.8); MCV 101.5 fL (80-100); MPV 7.7 fL (7.6-11.3); RBC Red Blood Cell Count 2.96 M/uL (3.86-4.86)
[2022-03-08] MEDS ORDERED: ALBUTEROL 2.5 MG/3 ML NEB SOL ONE ×3 (03:33→20:25)
[2022-03-08] MEDS ORDERED: IPRATROPIUM BROM 0.5MG/2.5ML ONE ×3 (03:33→20:25)
[2022-03-08] MEDS ORDERED: ONDANSETRON 4 MG/2 ML VIAL ONE ×4 (03:33→23:52)
[2022-03-08] MEDS ORDERED: METHYLPREDNISOLONE 125 MG INJ ONE (03:33)
[2022-03-08] MEDS ORDERED: NA CHLORIDE 0.9% 1,000 ML ONE ×2 (03:34→15:15)
[2022-03-08 03:52] LABS: ALT/SGPT 31 U/L (12-78); AST/SGOT 98 U/L (15-37); Albumin 1.7 g/dL (3.4-5.0); Alkaline Phosphatase 145 U/L (45-117); BUN Blood Urea Nitrogen < 3 mg/dL (7-18); Bicarbonate 23 mmol/L (21-32); Bilirubin Total 0.6 mg/dL (0.2-1.0); Glomerular Filtration Rate 101 ml/min (=/>90); Glucose Level 127 mg/dL (74-106); Lipase 37 U/L (73-393); NT PRO-BNP 690 pg/mL (<125); Protein, Total 4.8 g/dL (6.4-8.2); Sodium Level 139 mmol/L (136-145); Troponin High Sensitivity 10.5 pg/mL (<58.9)
[2022-03-08 03:53] LABS: Potassium 2.9 mmol/L (3.5-5.1)
[2022-03-08] MEDS ORDERED: POTASSIUM CL SA 10 MEQ TAB PO ONE (05:52)
--- NOTE | 2022-03-08 07:12 | EDPHYS ---
Physician Documentation [facility] Name: Kristin Lester Age: 71 yrs Sex: Female : 1950 Arrival Date: 03/08/2022 Time: 02:40 Bed 20 Private MD: ED Physician [place] Bui HPI: 03/08 03:25 This 71 yrs old Female presents to ER via Wheelchair with complaints of Breathing rt Difficulty, Vomiting/Diarrhea, Decreased Appetite. 03:25 Onset: The symptoms/episode began/occurred gradually. Duration: The symptoms are rt chronic, are continuous. The patient's shortness of breath has no apparent modifying factors. Associated signs and symptoms: Pertinent positives: Jaylen, nausea, weight loss. Severity of symptoms: At their worst the symptoms were moderate. Patient presents to the ED with a worsening of her chronic dyspnea due to COPD. Patient states that she will require slightly more oxygen compared to usual. She reports associated cough. She states over the past couple months, she has had a chronic diarrhea after being diagnosed with a diverticulitis, stating that she just finished her course of antibiotics. She states that she believes that she lost about 20 pounds in that timeframe. She denies other acute complaints at this time, symptoms are moderate in severity, no other aggravating or alleviating factors.. Historical: - Allergies: 03:01 No Known Allergies; ha1 - PMHx: 03:01 Chronic obstructive lung disease; depressive disorder; Hypertensive disorder; ha1 - Immunization history:: Adult Immunizations up to date. - Social history:: Smoking status: Patient reports the use of cigarette tobacco products, smokes one-half pack cigarettes per day. - Family history:: not pertinent. ROS: 03:25 Eyes: Negative for injury, pain, redness, and discharge, ENT: Negative for injury, rt pain, and discharge, Neck: Negative for injury, pain, and swelling, Back: Negative for injury and pain, MS/Extremity: Negative for injury and deformity, Skin: Negative for injury, rash, and discoloration, Neuro: Negative for headache, weakness, numbness, tingling, and seizure, Psych: Negative for depression, anxiety, suicide ideation, homicidal ideation, and hallucinations. 03:25 Constitutional: Positive for poor PO intake, weight loss. 03:25 Respiratory: Positive for cough, shortness of breath. 03:25 Abdomen/GI: Positive for nausea, vomiting, and diarrhea, Negative for abdominal pain. Exam: 03:25 Constitutional: This is a well developed, well nourished patient who is awake, alert, rt and in no acute distress. Head/Face: Normocephalic, atraumatic. Eyes: Pupils equal round and reactive to light, extra-ocular motions intact. Lids and lashes normal. Conjunctiva and sclera are non-icteric and not injected. Cornea within normal limits. Periorbital areas with no swelling, redness, or edema. ENT: Nares patent. No nasal discharge, no septal abnormalities noted. Tympanic membranes are normal and external auditory canals are clear. Oropharynx with no redness, swelling, or masses, exudates, or evidence of obstruction, uvula midline. Mucous membranes moist. Neck: Trachea midline, no thyromegaly or masses palpated, and no cervical lymphadenopathy. Supple, full range of motion without nuchal rigidity, or vertebral point tenderness. No Meningismus. Chest/axilla: Normal chest wall appearance and motion. Nontender with no deformity. No lesions are appreciated. Cardiovascular: Regular rate and rhythm with a normal S1 and S2. No gallops, murmurs, or rubs. Normal PMI, no JVD. No pulse deficits. Skin: Warm, dry with normal turgor. Normal color with no rashes, no lesions, and no evidence of cellulitis. MS/ Extremity: Pulses equal, no cyanosis. Neurovascular intact. Full, normal range of motion. Neuro: Awake and alert, GCS 15, oriented to person, place, time, and situation. Cranial nerves II-XII grossly intact. Motor strength 5/5 in all extremities. Sensory grossly intact. Cerebellar exam normal. Normal gait. Psych: Awake, alert, with orientation to person, place and time. Behavior, mood, and affect are within normal limits. 03:25 ECG was reviewed by the Attending Physician. 03:25 Respiratory: Wheezes heard on all lung rosenberg, mildly increased work of breathing.. 03:25 Abdomen/GI: Mild tenderness diffusely without rebound, guarding, distention. Vital Signs: 02:50 BP 111 / 70; Pulse 95; Pulse Ox 94% ; rv1 03:00 BP 111 / 70; Pulse 97; Resp 19; Temp 98.2; Pulse Ox 97% on 2 lpm NC; Weight 49.9 kg; ha1 Height 5 ft. 7 in. (170.18 cm); 03:51 BP 113 / 58; Pulse 83; Resp 17 S; Pulse Ox 100% on 2 lpm NC; ha1 04:26 BP 102 / 51; Pulse 100; Resp 20 S; Pulse Ox 99% on 2 lpm NC; ha1 05:20 BP 116 / 60; Pulse 97; Resp 20 S; Pulse Ox 98% on 2 lpm NC; ha1 06:20 BP 105 / 92; Pulse 100; Resp 20 S; Pulse Ox 98% on 2 lpm NC; ha1 07:00 BP 105 / 92; Pulse 96; Resp 23; Pulse Ox 98% ; bp 03:00 Body Mass Index 17.23 (49.90 kg, 170.18 cm) ha1 MDM: 02:43 Patient medically screened. rt 07:11 Differential diagnosis: Chronic Obstructive Pulmonary Disease pneumonia. Data reviewed: rt vital signs, nurses notes, old medical records, lab test result(s), EKG, radiologic studies. 03/08 02:56 Order name: CBC with Diff; Complete Time: 03:47 rt 03/08 02:56 Order name: CMP; Complete Time: 03:54 rt 03/08 02:56 Order name: Lipase; Complete Time: 03:54 rt 03/08 02:56 Order name: Troponin High Sensitivity; Complete Time: 03:54 rt 03/08 02:56 Order name: BNP; Complete Time: 03:54 rt 03/08 10:04 Order name: C.difficile GDH Ag EDIL 03/08 10:04 Order name: CBC with Automated Diff EDIL 03/08 10:04 Order name: CBC with Automated Diff EDIL 03/08 10:04 Order name: Comprehensive Metabolic Panel EDIL 03/08 10:04 Order name: Comprehensive Metabolic Panel EDIL 03/08 10:04 Order name: Fecal Leukocyte Stain EDIL 03/08 10:04 Order name: Stool Culture EDIL 03/08 10:37 Order name: SARS-COV-2 Antigen Rapid em1 03/08 11:26 Order name: SARS-COV-2 Antigen Rapid EDIL 03/08 02:56 Order name: CT Abd/Pelvis - IV Contrast Only rt 03/08 02:56 Order name: EKG; Complete Time: 02:57 rt 03/08 02:56 Order name: Chest Single View XRAY rt 03/08 04:49 Order name: Abdomen EDMS 03/08 22:50 Order name: Glucose, Ancillary Testing EDMS 03/09 04:01 Order name: CBC Smear Scan EDMS 03/09 08:09 Order name: Glucose, Ancillary Testing EDMS 03/09 12:42 Order name: Glucose, Ancillary Testing EDMS 03/09 12:58 Order name: Comprehensive Metabolic Panel EDMS 03/08 02:56 Order name: IV Saline Lock; Complete Time: 03:39 rt 03/08 02:56 Order name: Labs collected and sent; Complete Time: 03:39 rt 03/08 02:56 Order name: EKG - Nurse/Tech; Complete Time: 03:27 rt 03/08 10:04 Order name: Heart Healthy EDMS EC:25 Rate is 81 beats/min. Rhythm is regular, Normal Sinus Rhythm with Occasional PVCs. QRS rt [place] is Normal. NM interval is normal. QRS interval is normal. T waves are Inverted in leads V4, V5, V6. Clinical impression: NSR w/ Non-specific ST/T Changes. Interpreted by me. Administered Medications: 03:20 Drug: NS 0.9% 1000 ml Route: IV; Rate: 1 bolus; Site: right forearm; ha1 06:01 Follow up: Response: No adverse reaction; IV Status: Completed infusion; IV Intake: ha1 1000ml 03:22 Drug: Zofran (Ondansetron) 4 mg Route: IVP; Site: right forearm; ha1 03:50 Follow up: Response: No adverse reaction; Nausea is decreased ha1 03:42 Drug: SOLU-Medrol (methylPrednisoLONE) 125 mg Route: IVP; Site: right forearm; ha1 04:15 Follow up: Response: No adverse reaction ha1 03:49 Drug: DuoNeb (albuterol 2.5 mg, ipratropium 0.5 mg) (3:1) (2.5 mg - 0.5 mg) 3 ml Route: ha1 Nebulizer; 04:15 Follow up: Response: No adverse reaction ha1 05:50 Drug: Potassium Chloride 40 mEq Route: PO; ha1 07:17 Follow up: Response: No adverse reaction bp 07:20 Drug: Cefepime 2 grams Route: IVPB; Rate: 200 ml/hr; Infused Over: 30 mins; Site: right bp antecubital; 08:56 Follow up: IV Status: Completed infusion; IV Intake: 100ml bp 08:15 Drug: vancoMYCIN 1 grams Route: IVPB; Infused Over: 2 hrs; Site: right antecubital; bp 09:30 Follow up: IV Status: Completed infusion; IV Intake: 250ml bp Disposition Summary: 03/08/22 07:11 Hospitalization Ordered Hospitalization Status: Inpatient Admission rt Provider: Piper Cisneros rt Condition: Fair rt Problem: an ongoing problem rt Symptoms: have worsened rt Bed/Room Type: Standard rt Location: Telemetry/MedSurg (Inpatient)(03/09/22 11:13) bd Room Assignment: 209(03/09/22 11:13) bd Diagnosis - Pneumonia, unspecified organism rt - Hypokalemia rt - Diarrhea, unspecified rt Forms: - Medication Reconciliation Form rt - SBAR form rt Signatures: Dispatcher [employer] EDIram Salinas Jahala, RN RN jl7 Vikash Quintana RN RN bp Kay Kruse RN RN ha1 [place] Bui MD MD rt Corrections: (The following items were deleted from the chart) 11:39 07:11 Telemetry/MedSurg (Inpatient) rt jl7 11:39 07:11 rt jl7 03/09 11:13 03/08 11:39 [facility] ER HOLD jl7 bd 03/09 11:13 03/08 11:39 ERHOLD- jl7 bd
--- NOTE | 2022-03-08 07:12 | ER ---
Nurse's Notes [facility] Name: Kristin Lester Age: 71 yrs Sex: Female : 1950 Arrival Date: 03/08/2022 Time: 02:40 Bed 20 Private MD: Diagnosis: Pneumonia, unspecified organism;Hypokalemia;Diarrhea, unspecified Presentation: 03/08 02:56 Chief complaint: Patient states: I have been having diarrhea, vomiting for about two ha1 weeks, and today I feel shortness of breath. Coronavirus screen: Vaccine status: Patient reports receiving the 2nd dose of the covid vaccine. Ebola Screen: No symptoms or risks identified at this time. Initial Sepsis Screen: Does the patient meet any 2 criteria? No. Patient's initial sepsis screen is negative. Does the patient have a suspected source of infection? No. Patient's initial sepsis screen is negative. Risk Assessment: Do you want to hurt yourself or someone else? Patient reports no desire to harm self or others. Onset of symptoms was March 08, 2022. 02:56 Method Of Arrival: Wheelchair ha1 02:56 Acuity: LAWRENCE 3 ha1 Triage Assessment: 03:01 General: Appears uncomfortable, Behavior is calm, cooperative. Pain: Denies pain. EENT: ha1 No deficits noted. No signs and/or symptoms were reported regarding the EENT system. Neuro: Level of Consciousness is awake, alert, obeys commands, Oriented to person, place, time, situation. Cardiovascular: Capillary refill < 3 seconds Patient's skin is warm and dry. Respiratory: Reports shortness of breath at rest Airway is patent Trachea midline Respiratory effort is even, unlabored, Respiratory pattern is regular, symmetrical, Breath sounds are coarse bilaterally. Onset: The symptoms/episode began/occurred gradually, the patient has moderate shortness of breath. GI: Abdomen is flat, non-distended, Bowel sounds present X 4 quads. Abd is soft and non tender X 4 quads. Reports diarrhea, vomiting. : No signs and/or symptoms were reported regarding the genitourinary system. Derm: Skin is fragile, Skin is pink, warm \T\ dry. Musculoskeletal: Circulation, motion, and sensation intact. Historical: - Allergies: 03:01 No Known Allergies; ha1 - PMHx: 03:01 Chronic obstructive lung disease; depressive disorder; Hypertensive disorder; ha1 - Immunization history:: Adult Immunizations up to date. - Social history:: Smoking status: Patient reports the use of cigarette tobacco products, smokes one-half pack cigarettes per day. - Family history:: not pertinent. Screenin:45 Abuse screen: Denies threats or abuse. Denies injuries from another. Nutritional ha1 screening: No deficits noted. Tuberculosis screening: No symptoms or risk factors identified. Fall Risk IV access (20 points). Gait- Weak (10 pts.). Total Nguyen Fall Scale indicates. Assessment: 03:07 General: see triage. ha1 03:50 Reassessment: Patient and/or family updated on plan of care and expected duration. Pain ha1 level reassessed. Patient is alert, oriented x 3, equal unlabored respirations, skin warm/dry/pink. SOB improved after being connected to oxygen Patient states symptoms have improved. 04:26 Reassessment: Patient and/or family updated on plan of care and expected duration. Pain ha1 level reassessed. Patient is alert, oriented x 3, equal unlabored respirations, skin warm/dry/pink. Patient denies pain at this time. 04:50 Reassessment: going to CT. ha1 05:20 Reassessment: Patient and/or family updated on plan of care and expected duration. Pain ha1 level reassessed. Patient is alert, oriented x 3, equal unlabored respirations, skin warm/dry/pink. Patient denies pain at this time. Patient states feeling better. Patient states symptoms have improved. 06:20 Reassessment: Patient and/or family updated on plan of care and expected duration. Pain ha1 level reassessed. Patient is alert, oriented x 3, equal unlabored respirations, skin warm/dry/pink. denies SOB at rest. Patient denies pain at this time. Respiratory: Respiratory effort is even, unlabored, Respiratory pattern is regular, symmetrical, Breath sounds are coarse bilaterally. 07:00 Reassessment: RECD REPORT FROM LEVAR KAN. 71YO WF P/W GEN WEAKNESS AND DIARRHEA AFTER bp COURSE OF ABX. 08:06 Reassessment: HOSPITALIST AT B/S. bp 19:00 Cardiovascular: Rhythm is regular. vc1 Vital Signs: 02:50 BP 111 / 70; Pulse 95; Pulse Ox 94% ; rv1 03:00 BP 111 / 70; Pulse 97; Resp 19; Temp 98.2; Pulse Ox 97% on 2 lpm NC; Weight 49.9 kg; ha1 Height 5 ft. 7 in. (170.18 cm); 03:51 BP 113 / 58; Pulse 83; Resp 17 S; Pulse Ox 100% on 2 lpm NC; ha1 04:26 BP 102 / 51; Pulse 100; Resp 20 S; Pulse Ox 99% on 2 lpm NC; ha1 05:20 BP 116 / 60; Pulse 97; Resp 20 S; Pulse Ox 98% on 2 lpm NC; ha1 06:20 BP 105 / 92; Pulse 100; Resp 20 S; Pulse Ox 98% on 2 lpm NC; ha1 07:00 BP 105 / 92; Pulse 96; Resp 23; Pulse Ox 98% ; bp 03:00 Body Mass Index 17.23 (49.90 kg, 170.18 cm) ha1 ED Course: 02:40 Patient arrived in ED. bp1 02:42 North Bui MD is Attending Physician. rt 02:45 Patient has correct armband on for positive identification. Placed in gown. Bed in low ha1 position. Call light in reach. Side rails up X 1. 02:56 Levar Kruse RN is Primary Nurse. ha1 03:00 Triage completed. ha1 03:01 Arm band placed on right wrist. ha1 03:39 Inserted saline lock: 24 gauge in right antecubital area, using aseptic technique. ds4 Blood collected. 03:57 Chest Single View XRAY In Process Unspecified. EDMS 05:15 Abdomen In Process Unspecified. EDMS 07:06 Report given to LORETA Veliz. ha1 07:10 Piper Cisneros MD is Hospitalizing Provider. rt 07:17 Primary Nurse role handed off by Levar Kruse RN bp 07:17 Vikash Quintana, LORETA is Primary Nurse. bp 19:00 No provider procedures requiring assistance completed. Patient admitted, IV remains in vc1 place. 03/09 00:34 Primary Nurse role handed off by Vikash Quintana, RN vc1 00:34 Skylar Caicedo, LORETA is Primary Nurse. vc1 Administered Medications: 03/08 03:20 Drug: NS 0.9% 1000 ml Route: IV; Rate: 1 bolus; Site: right forearm; ha1 06:01 Follow up: Response: No adverse reaction; IV Status: Completed infusion; IV Intake: ha1 1000ml 03:22 Drug: Zofran (Ondansetron) 4 mg Route: IVP; Site: right forearm; ha1 03:50 Follow up: Response: No adverse reaction; Nausea is decreased ha1 03:42 Drug: SOLU-Medrol (methylPrednisoLONE) 125 mg Route: IVP; Site: right forearm; ha1 04:15 Follow up: Response: No adverse reaction ha1 03:49 Drug: DuoNeb (albuterol 2.5 mg, ipratropium 0.5 mg) (3:1) (2.5 mg - 0.5 mg) 3 ml Route: ha1 Nebulizer; 04:15 Follow up: Response: No adverse reaction ha1 05:50 Drug: Potassium Chloride 40 mEq Route: PO; ha1 07:17 Follow up: Response: No adverse reaction bp 07:20 Drug: Cefepime 2 grams Route: IVPB; Rate: 200 ml/hr; Infused Over: 30 mins; Site: right bp antecubital; 08:56 Follow up: IV Status: Completed infusion; IV Intake: 100ml bp 08:15 Drug: vancoMYCIN 1 grams Route: IVPB; Infused Over: 2 hrs; Site: right antecubital; bp 09:30 Follow up: IV Status: Completed infusion; IV Intake: 250ml bp Medication: 19:00 VIS not applicable for this client. vc1 Intake: 06:01 IV: 1000ml; Total: 1000ml. ha1 08:56 IV: 100ml; Total: 1100ml. bp 09:30 IV: 250ml; Total: 1350ml. bp Outcome: 07:11 Decision to Hospitalize by Provider. rt 19:00 Admitted to ER Hold. Please see [facility] for further documentation. vc1 19:00 Condition: good 19:00 Instructed on the need for admit. 03/09 16:16 Patient left the ED. ld1 Signatures: Dispatcher [employer] EDMS Mundo Jade ds4 Vikash Quintana RN RN bp Renetta Turner Lauren, RN RN ld1 Skylar Caicedo RN RN vc1 Levar Kruse RN RN ha1 [place] Bui MD MD rt Yeimi Almonte rv1 Corrections: (The following items were deleted from the chart) 03/08 04:59 03:01 Respiratory: Reports shortness of breath at rest Airway is patent Trachea midline ha1 Respiratory effort is even, unlabored, Respiratory pattern is regular, symmetrical, Onset: The symptoms/episode began/occurred gradually, the patient has moderate shortness of breath ha1 06:05 05:50 Reassessment: Patient and/or family updated on plan of care and expected ha1 duration. Pain level reassessed. Patient is alert, oriented x 3, equal unlabored respirations, skin warm/dry/pink. Patient denies pain at this time. Patient states feeling better. Patient states symptoms have improved. ha1
[2022-03-08] MEDS ORDERED: VANCOMYCIN 1 GM/VIAL ONE (07:40)
[2022-03-08] MEDS ORDERED: CEFEPIME 2 GM VIAL ONE (07:40)
[2022-03-08] MEDS ORDERED: NA CHLORIDE 0.9% 250 ML ONE (07:40)
[2022-03-08] MEDS ORDERED: NA CHLORIDE 0.9% 100 ML IV ONE ×3 (07:40→23:53)
[2022-03-08] MEDS ORDERED: ACETAMINOPHEN 500 MG TAB PO PRN (09:58)
[2022-03-08] MEDS ORDERED: DIPHENOX/ATROP SULF 1 TAB PO PRN (09:58)
[2022-03-08] MEDS: NA CHLORIDE 0.9% 1,000 ML IV SCH (10:00)
[2022-03-08 11:25] LABS: SARS-CoV-2 Antigen Rapid Res Negative (Negative)
[2022-03-08 13:55] VITALS: BMI 17.2
[2022-03-08] MEDS: IPRATROPIUM BROM 0.5MG/2.5ML NEB SCH ×2 (14:30→20:20)
[2022-03-08] MEDS: ALBUTEROL 2.5 MG/3 ML NEB SOL NEB SCH ×2 (14:30→20:20)
[2022-03-08] MEDS ORDERED: MORPHINE 2 MG/ML SYR ONE ×3 (15:15→23:52)
[2022-03-08] MEDS: MORPHINE 2 MG/ML SYR IV PRN ×2 (15:30→19:47)
[2022-03-08] MEDS: ONDANSETRON 4 MG/2 ML VIAL IV PRN ×2 (15:30→19:49)
--- NOTE | 2022-03-08 15:59 | RAD REPORT ---
EXAM DESCRIPTION: CT - Abdomen Pelvis W Contrast - 03/08/2022 6:52 am CLINICAL HISTORY: The patient is 71 years old and is Female; ABD PAIN TECHNIQUE: Axial computed tomography images of the abdomen and pelvis with intravenous contrast. S agittal and coronal reformatted images were created and reviewed. This CT exam was performed using one or more of the following dose reduction techniques: automated exposure control, adjustment of t he mA and/or kV according to patient size, and/or use of iterative reconstruction technique. COMPARISON: 02/25/2022 CT abdomen pelvis, 01/20/2022 CT abdomen pelvis with contrast FINDINGS: LUNG BASES: Spiculated 1 cm nodule in the medial right lung base (axial image 7/50), new from 01/20/2022 and favored to be inflammatory/infectious given acuity. PLEURAL SPACE: Trace bilateral pleural effusions, right greater than left, with right greater than left basilar subsegmental atelectasis and superimposed right lower lobe bronchiectasis and tree-in-bu d opacities, most suggestive of aspiration versus bronchopneumonia. ABDOMEN: LIVER: Hepatic steatosis. GALLBLADDER AND BILE DUCTS: Persistent dilatation of the extrahepatic bile duct, measuring up to 1. 1 cm (axial image 22/87), with no obvious source of distal obstruction. No calcified stones. PANCREAS: No pancreatic ductal obstruction. SPLEEN: Unremarkable. No splenomegaly. ADRENALS: Unremarkable. No mass. KIDNEYS AND URETERS: Bilateral renal cortical scarring is noted with no acute cortical enhancement abnormality or hydronephrosis. Left-sided nonobstructive intrarenal stone. STOMACH AND BOWEL: Colonic diverticulosis without evidence of acute diverticulitis. No obstruction. PELVIS: APPENDIX: No findings to suggest acute appendicitis. BLADDER: Unremarkable. No mass. REPRODUCTIVE: Unremarkable as visualized. ABDOMEN and PELVIS: INTRAPERITONEAL SPACE: Unremarkable. No free air. No significant fluid collection. BONES/JOINTS: Sclerotic changes demonstrated in the bilateral femoral heads, most compatible with a vascular necrosis, unchanged from prior exams. No acute fracture. No dislocation. SOFT TISSUES: Unremarkable. VASCULATURE: Moderate calcified atherosclerosis of the visualized thoracic and abdominal aorta, wit h infrarenal ectasia measuring up to 2.3 cm in transverse dimension. No abdominal aortic aneurysm. LYMPH NODES: Unremarkable. No enlarged lymph nodes. IMPRESSION: 1. Trace bilateral pleural effusions, right greater than left, with right greater than left basilar subsegmental atelectasis and superimposed right lower lobe bronchiectasis and tree-in-b ud opacities, most suggestive of aspiration versus bronchopneumonia. 2. No acute abnormality of the abdomen or pelvis. 3. Persistent dilatation of the extrahepatic bile duct, measuring up to 1.1 cm (axial image /), with no obvious source of distal obstruction. Consider further characterization by MRCP to evaluate for possible source of common bile duct obstruction. 4. Spiculated 1 cm nodule in the medial right lung base (axial image 50), new from 01/20/2022 and favored to be inflammatory/infectious given acuity. However, recommend follow-up evaluation with ded icated chest CT in 6 months to evaluate for resolution. 5. Colonic diverticulosis without evidence of acute diverticulitis. 6. Sclerotic changes demonstrated in the bilateral femoral heads, most compatible with avascular ne crosis, unchanged from prior exams. Electronically signed by: Isma Banks MD 03/08/2022 6:46 AM CHIEF YEOMAN Due to temporary technical issues with the PACS/Fluency reporting system, reports are being signed by the in house radiologists without review as a courtesy to insure prompt reporting. The interpreting radiologist is fully responsible for the content of the report.
[2022-03-08] MEDS: PIPER TAZO 3.375 GM in NA CHLORIDE 0.9% 100 ML IV SCH (17:00)
[2022-03-08] MEDS: METHYLPREDNISOLONE 40 MG INJ IV SCH (17:00)
--- NOTE | 2022-03-08 17:18 | RAD REPORT ---
EXAM DESCRIPTION: RAD - Chest Single View - 03/08/2022 3:55 am CLINICAL HISTORY: The patient is 71 years old and is Female; DYSPNEA TECHNIQUE: Frontal view of the chest. COMPARISON: 02/28/2022 chest radiograph FINDINGS: LUNGS: Hyperexpansion of the bilateral lung parenchyma patchy right basilar airspace opa cities are again noted, slightly increased from prior exam. PLEURAL SPACE: No pneumothorax. No pleural effusion. HEART: Stable cardiomediastinal silhouette. MEDIASTINUM: See above. BONES/JOINTS: Unremarkable. VASCULATURE: Descending thoracic vascular stent noted. IMPRESSION: Hyperexpansion of the bilateral lung parenchyma again noted with patchy right basilar ai rspace opacities again noted, slightly increased from prior exam. Aspiration versus bronchopneumonia. Electronically signed by: Isma Banks MD 03/08/2022 6:25 AM HEALTH INSURANCE AGENT Due to temporary technical issues with the PACS/Fluency reporting system, reports are being signed by the in house radiologists without review as a courtesy to insure prompt reporting. The interpreting radiologist is fully responsible for the content of the report.
[2022-03-08] MEDS ORDERED: PIPERACIL/TAZO 3.375 GM VIAL IV ONE ×2 (18:14→23:53)
[2022-03-08] MEDS ORDERED: METHYLPREDNISOLONE 40 MG INJ ONE (18:14)
[2022-03-08] MEDS ORDERED: MELATONIN 5 MG TABLET PO ONE (22:35)
[2022-03-08] MEDS: MELATONIN 5 MG TABLET PO PRN (22:40)
[2022-03-09] MEDS: MORPHINE 2 MG/ML SYR IV PRN ×5 (00:05→21:30)
[2022-03-09] MEDS: ONDANSETRON 4 MG/2 ML VIAL IV PRN ×3 (00:06→09:24)
[2022-03-09] MEDS ORDERED: METHYLPREDNISOLONE 40 MG INJ ONE ×2 (00:16→09:00)
[2022-03-09] MEDS: METHYLPREDNISOLONE 40 MG INJ IV SCH ×3 (00:31→17:17)
[2022-03-09] MEDS: PIPER TAZO 3.375 GM in NA CHLORIDE 0.9% 100 ML IV SCH ×3 (00:31→17:17)
[2022-03-09] MEDS: IPRATROPIUM BROM 0.5MG/2.5ML NEB SCH ×4 (02:00→20:10)
[2022-03-09] MEDS: ALBUTEROL 2.5 MG/3 ML NEB SOL NEB SCH ×4 (02:00→20:10)
[2022-03-09] MEDS ORDERED: IPRATROPIUM BROM 0.5MG/2.5ML ONE ×3 (02:02→12:53)
[2022-03-09] MEDS ORDERED: ALBUTEROL 2.5 MG/3 ML NEB SOL ONE ×3 (02:02→12:52)
[2022-03-09 02:45] LABS: Absolute Lymphocytes (CBC) 0.7 K/uL (0.7-4.9); Hematocrit 27.3 % (36.0-45.0); Lymphocytes % 9.4 % (15.3-44.8); MCV 100.6 fL (80-100); MPV 7.7 fL (7.6-11.3); RBC Red Blood Cell Count 2.71 M/uL (3.86-4.86)
[2022-03-09] MEDS ORDERED: MORPHINE 2 MG/ML SYR ONE ×2 (03:09→09:11)
[2022-03-09] MEDS ORDERED: NA CHLORIDE 0.9% 1,000 ML ONE (03:10)
[2022-03-09] MEDS ORDERED: ONDANSETRON 4 MG/2 ML VIAL ONE ×2 (03:12→09:11)
[2022-03-09 03:18] LABS: Albumin 1.8 g/dL (3.4-5.0); Bilirubin Total 0.6 mg/dL (0.2-1.0); Potassium 4.9 mmol/L (3.5-5.1); Protein, Total 4.5 g/dL (6.4-8.2)
[2022-03-09 04:01] LABS: Blood Morphology Comment NOTED (NOT SEEN); Burr Cells 1+; Platelet Estimate ADEQ; White Blood Cell Scan OK (OK)
[2022-03-09] MEDS: NA CHLORIDE 0.9% 1,000 ML IV SCH (04:20)
[2022-03-09] MEDS ORDERED: PNEUMOCOCCAL VACCINE 0.5 ML IMVAC ONE (08:00)
[2022-03-09] MEDS ORDERED: NA CHLORIDE 0.9% 100 ML IV ONE (09:00)
[2022-03-09] MEDS ORDERED: PIPERACIL/TAZO 3.375 GM VIAL IV ONE (09:00)
--- NOTE | 2022-03-09 10:51 | P.HP ---
Certification for Inpatient Patient admitted to: Observation With expected LOS: <2 Midnights Patient will require the following post-hospital care: None Practitioner: I am a practitioner with admitting privileges, knowledge of patient current condition, hospital course, and medical plan of care. Services: Services provided to patient in accordance with Admission requirements found in Title 42 Section 412.3 of the Code of Federal Regulations Patient History Date of Service: 03/08/22 Reason for admission: Shortness of breath History of Present Illness: Patient is a 71-year-old female who comes into the hospital once again with shortness of breath. Patient's respiratory status has been worsening for the last 48 hours. She came in with difficulty breathing. She has had multiple admissions for similar complaints. She has a history of COPD. Currently she is been given nebs and steroids and she is feeling better. She will be admitted to the hospital for further evaluation. Allergies No Known Allergies Allergy (Verified 12/13/21 01:34) Home Medications: Amlodipine [Norvasc*] 5 mg PO DAILY 12/13/21 Aspirin [Aspirin EC] 81 mg PO DAILY 12/13/21 Atorvastatin Calcium 10 mg PO DAILY 12/13/21 Buspirone HCl 5 mg PO BID 12/13/21 Citalopram [Celexa*] 20 mg PO DAILY 12/13/21 Duloxetine HCl 30 mg PO DAILY 12/13/21 Folic Acid 1 mg PO DAILY 12/13/21 Gabapentin [Neurontin*] 100 mg PO TID 12/13/21 Metoprolol Tartrate 25 mg PO BID 12/13/21 Montelukast [Singulair*] 10 mg PO DAILY 12/13/21 Pantoprazole [Protonix Tab*] 40 mg PO DAILY 12/13/21 Albuterol Neb [Proventil 0.083% Neb Soln] 2.5 mg NEB [id number] PRN #60 amp 12/19/21 Enoxaparin Sodium [Lovenox 40 MG INJ*] 40 mg SQ DAILY syr 12/19/21 Hydrocodone 5/APAP 325 [[place] 5/325*] 1 tab PO Q4H PRN #0 tab 12/19/21 Ipratropium Neb [Atrovent*] 0.5 mg NEB [id number] PRN #0 amp 12/19/21 Medihoney [Medihoney Woundcare Gel*] 1 appl TOP DAILY #0 tube 12/19/21 Minocycline HCl 100 mg PO BID #14 12/19/21 Smz./Tmp. [Bactrim Ds 800 MG/160 MG] 1 each PO DAILY #10 tab 12/19/21 Thiamine HCl [Vitamin B-1*] 50 mg PO DAILY #30 12/19/21 - Past Medical/Surgical History Has patient received pneumonia vaccine in the past: No Diabetic: No -: COPD on home 02 -: HTN -: Depression -: ETOH use disorder -: Tobacco abuse -: CAD -: Left knee -: Hysterectomy Psychosocial/ Personal History: Lives at home with family. - Family History Mother Medical History: Stroke - Social History Smoking Status: Current some day smoker Place of Residence: Home Review of Systems 10-point ROS is otherwise unremarkable Physical Examination - Vital Signs Temperature: 98.5 F Blood Pressure: 120/60 Pulse: 80 Respirations: 17 Pulse Ox (%): 99 - Physical Exam General: Alert, In no apparent distress, Oriented x3 HEENT: Atraumatic, PERRLA, Mucous membr. moist/pink, EOMI, Sclerae nonicteric Neck: Supple, 2+ carotid pulse no bruit, No LAD, Without JVD or thyroid abnormality Respiratory: Diminished, Crackles/rales, Expiratory wheezes Cardiovascular: Regular rate/rhythm, Normal S1 S2 Gastrointestinal: Normal bowel sounds, No tenderness Musculoskeletal: No tenderness Integumentary: No rashes, No cyanosis Neurological: Normal gait, Normal speech, Normal tone, Cranial nerves 3-12 intact, Normal affect, Abnormal strength Lymphatics: No axilla or inguinal lymphadenopathy Assessment & Plan - Problems (Diagnosis) (1) COPD with acute exacerbation Current Visit: Yes Status: Acute (2) Major depressive disorder Current Visit: Yes Status: Acute (3) Tobacco abuse Current Visit: No Status: Acute - Plan Plan: 1. Continue with albuterol and Atrovent nebs 2. Continue with IV steroids 3. Repeat labs in a.m. 4. Pulmonary follow-up 5. Room air O2 sats 6. Repeat chest x-ray in the morning 7. Antidepressant 8. GI and DVT prophylaxis Discharge Plan: Home Plan to discharge in: Greater than 2 days - Advance Directives Does patient have a Living Will: No Does patient have a Durable POA for Healthcare: No - Code Status/Comfort Care Code Status Assessed: Yes Code Status: Full Code Critical Care: No Time Spent Managing PTS Care (In Minutes): 45
--- NOTE | 2022-03-09 10:52 | P.PN ---
Subjective Date of Service: 03/09/22 Patient liver function testing has worsened significantly. Change to inpatient hospitalization. Abdominal ultrasound. Asymptomatic. We will evaluate further etiology of elevated LFTs. Review of Systems 10-point ROS is otherwise unremarkable Physical Examination - Vital Signs Temperature: 98.5 F Blood Pressure: 120/60 Pulse: 80 Respirations: 17 Pulse Ox (%): 99 - Physical Exam General: Alert, In no apparent distress, Oriented x3 HEENT: Atraumatic, PERRLA, EOMI Neck: Supple, JVD not distended Respiratory: Clear to auscultation bilaterally, Normal air movement Cardiovascular: Regular rate/rhythm, Normal S1 S2 Gastrointestinal: Normal bowel sounds, No tenderness Musculoskeletal: No tenderness Integumentary: No rashes Neurological: Normal speech, Normal tone, Normal affect Lymphatics: No axilla or inguinal lymphadenopathy - Studies Medications List Reviewed: Yes Assessment & Plan - Problems (Diagnosis) (1) COPD with acute exacerbation Current Visit: Yes Status: Acute (2) Major depressive disorder Current Visit: Yes Status: Acute (3) Tobacco abuse Current Visit: No Status: Acute - Plan Plan: 1. Continue with albuterol and Atrovent nebs 2. Abdominal ultrasound and LFTs 3. Repeat labs in a.m. 4. Pulmonary follow-up 5. Room air O2 sats 6. Repeat chest x-ray in the morning 7. Antidepressant 8. GI and DVT prophylaxis Discharge Plan: Home Plan to discharge in: Greater than 2 days - Advance Directives Does patient have a Living Will: No Does patient have a Durable POA for Healthcare: No - Code Status/Comfort Care Code Status: Full Code
--- NOTE | 2022-03-09 12:52 | EKG ---
Test Date: 2022-03-08 Test Time: 03:24:30 Loading Supervisor: RV MEASUREMENT RESULTS: Intervals: Rate: 81 IN: 86 QRSD: 72 QT: 366 QTc: 425 [place]: P: IN: 86 QRS: 69 T: -25 INTERPRETIVE STATEMENTS: Sinus rhythm with short IN with premature supraventricular complexes Septal infarct, age undetermined ST & T wave abnormality, consider inferior ischemia ST & T wave abnormality, consider anterolateral ischemia Abnormal ECG Compared to ECG 12/12/2021 21:32:55 Atrial premature complex(es) now present Short IN interval now present Myocardial infarct finding now present ST (T wave) deviation now present Possible ischemia now present Electronically Signed On 03-09-22 12:49:34 [employer] GENERAL MANAGER by Amadou Chino
[2022-03-09 12:55] LABS: Albumin 1.8 g/dL (3.4-5.0); Bilirubin Total 0.5 mg/dL (0.2-1.0); Potassium 3.5 mmol/L (3.5-5.1); Protein, Total 4.7 g/dL (6.4-8.2)
[2022-03-09] MEDS: ENSURE HIGH PROTEIN 237 ML CAN PO SCH ×2 (14:00→21:00)
--- NOTE | 2022-03-09 17:20 | RAD REPORT ---
EXAM DESCRIPTION: MRI - Cholangiogram - 03/09/2022 4:32 pm CLINICAL HISTORY: bile duct stone COMPARISON: Abdomen Pelvis W Contrast dated 03/08/2022 FINDINGS: Three-dimensional MRCP was performed using maximum intensity projection reconstruction on the same work station. Similar biliary ductal dilatation with common bile duct measuring 7 millimeters at the level of the p ancreatic head. The common hepatic duct measures 9 millimeters. Gallbladder is unremarkable. Negative for choledocholithiasis. No pancreatic ductal dilatation is identified. The pancreas is atrophic. Trace perihepatic ascites and small bilateral pleural effusions. No hydronephrosis. The visualized gabe wel is unremarkable. IMPRESSION: Extrahepatic biliary ductal dilatation without evidence of obstructing stone or mass. Th is may be of little clinical significance if the liver function tests are within normal limits. If ab normal, ERCP could be considered.
[2022-03-09] MEDS: MELATONIN 5 MG TABLET PO PRN (21:31)
[2022-03-10] MEDS: ALBUTEROL 2.5 MG/3 ML NEB SOL NEB SCH (01:10)
[2022-03-10] MEDS: IPRATROPIUM BROM 0.5MG/2.5ML NEB SCH (01:10)
[2022-03-10] MEDS: MORPHINE 2 MG/ML SYR IV PRN ×3 (01:39→13:20)
[2022-03-10] MEDS: METHYLPREDNISOLONE 40 MG INJ IV SCH ×2 (01:40→08:52)
[2022-03-10] MEDS: PIPER TAZO 3.375 GM in NA CHLORIDE 0.9% 100 ML IV SCH ×2 (01:40→08:53)
[2022-03-10 02:47] VITALS: O2SAT 98
[2022-03-10 06:02] LABS: Absolute Lymphocytes (CBC) 0.4 K/uL (0.7-4.9); Hematocrit 27.5 % (36.0-45.0); Lymphocytes % 4.5 % (15.3-44.8); MCV 99.8 fL (80-100); MPV 7.7 fL (7.6-11.3); RBC Red Blood Cell Count 2.76 M/uL (3.86-4.86)
[2022-03-10 06:12] LABS: Protime INR 1.38
[2022-03-10 06:14] LABS: Albumin 1.9 g/dL (3.4-5.0); Bilirubin Total 0.5 mg/dL (0.2-1.0); Magnesium 1.5 mg/dL (1.8-2.4); Potassium 3.3 mmol/L (3.5-5.1); Protein, Total 4.8 g/dL (6.4-8.2)
[2022-03-10] MEDS: ONDANSETRON 4 MG/2 ML VIAL IV PRN (08:59)
[2022-03-10] MEDS: ENSURE HIGH PROTEIN 237 ML CAN PO SCH (09:28)
[2022-03-10 11:53] VITALS: BP 134/67; TEMP 97.5
== END 2022-03-10 14:56 | disposition home or self-care (01) | DRG 192 ==
LOC: ER 02:39 → OBSVTOIN 09:59 → ERHOLD 09:59 → 2ND 03-09 15:27
PROVIDERS: ADMIT Hospitalist; ATTEND Hospitalist
DX: J44.1 Chronic obstructive pulmonary disease with (acute) exacerbation (principal); I10 Essential (primary) hypertension; E87.6 Hypokalemia; F32.9 Major depressive disorder, single episode, unspecified; F17.210 Nicotine dependence, cigarettes, uncomplicated; Z99.81 Dependence on supplemental oxygen; Z79.82 Long term (current) use of aspirin; Z79.899 Other long term (current) drug therapy; Z90.710 Acquired absence of both cervix and uterus; Z20.822 Contact with and (suspected) exposure to COVID-19
CPT/HCPCS: 36415; 71045; 74177; 74181; 80053; 82947; 83690; 83735; 83880; 84484; 85025; 85610; 85730; 87811; 93005; 94640; 96361; 96365; 96375; 99285; J0692; J2270; J2405; J2543; J2920; J2930; J3370; J7030; J7050; J7613; J7644; Q9967